=== PATIENT | female | born 1980 | race Asian ===

== ENCOUNTER → 2020-05-25 08:53 | Outpatient (BNV) | payer BC, OTHER, SELFPAY | PROVIDERS: PCP Nurse Practitioner Family; Visit Provider Internal Medicine | DX: D50.9 Iron deficiency anemia, unspecified (principal); N92.0 Excessive and frequent menstruation with regular cycle | CPT/HCPCS: 99213; 99214 ==

== ENCOUNTER 2021-08-13 23:44 | Emergency (ER) | payer OTHER, SELFPAY ==
--- NOTE | ~2021-08-13 | XR_ITS ---
EXAMINATION: XR CHEST CLINICAL INFORMATION: Cough. COMPARISON: None TECHNIQUE: Frontal view of the chest was obtained. FINDINGS: Bilateral patchy infiltrates are seen with mid and lower lung predominance, right greater than left. The heart and mediastinal structures are unremarkable. XR/XR chest 1V IMPRESSION: Bilateral patchy infiltrates, right greater than left most consistent with an infectious/inflammatory process.
[2021-08-14 00:31] VITALS: BP 127/83; PULSE 94; RESP 20; TEMP 38.2; O2SAT 97; BMI 30.9
[2021-08-14 01:08] LABS: COVID-19 Test Positive (Negative)
[2021-08-14] MEDS: Acetaminophen 325 MG TABLET 650 MG PO (07:02)
--- NOTE | 2021-08-14 07:49 | ED.GENADULT ---
HPI - General Adult General Chief complaint: Fever Stated complaint: cough, fever 5 days, severe flu thru telehealth Time Seen by Provider: 08/14/21 06:53 Source: patient Mode of arrival: ambulatory Limitations: no limitations History of Present Illness HPI narrative: This is a very pleasant 41 years old female unvaccinated for covid, presented to the emergency department complaining of fever body aches malaise. Her tested positive for covid Onset (ago): day(s) (5) Radiation: non-radiation Severity: moderate Quality: burning Pain Consistency: constant Relieving factors: none Exacerbating factors: none Associated symptoms: denies other symptoms Related Data Home Medications Medication Instructions Recorded Confirmed ferrous sulfate 324 mg (65 mg 324 mg PO BID 05/25/20 05/25/20 iron) tablet,delayed release folic acid 1 mg tablet 1 mg PO DAILY 05/25/20 05/25/20 levothyroxine 137 mcg tablet 137 mcg PO DAILY 05/25/20 05/25/20 Allergies Allergy/AdvReac Type Severity Reaction Status Date / Time aspirin [ASPIRIN] Allergy Unknown HIVES Verified 05/25/20 09:30 Review of Systems Constitutional: Constitutional: Reports no additional constitutional complaints Cardiovascular: Cardiovascular: Reports no additional cardiovascular complaints Respiratory: Respiratory: Reports chest congestion and Reports cough Gastrointestinal: Gastrointestinal: Reports no additional gastrointestinal complaints PMFSH Past Medical History Medical History Hepatic steatosis Hypothyroidism Infertility Iron deficiency anemia Vitamin D deficiency Family History Family History Father Murder Mother Cardiovascular system problem Social History Social History Alcohol intake: never Smoked in Last 30 Days: No Use of substances other than those prescribed or required for medical reasons: No Advance Directives: No Physical Exam Vital Signs: Vital Signs: Last Vital Signs Temp 98.9 F 08/14/21 08:40 Pulse 80 08/14/21 08:38 Resp 18 08/14/21 08:38 BP 113/71 08/14/21 08:38 Pulse Ox 93 08/14/21 08:40 BMI result Body Mass Index 30.9 Const: Other: She has not toxic-appearing, oxygen saturation is 97% respiration rate is 20, she is not tachypneic General: cooperative Nutritional Appearance: average body habitus HENMT: Head: Yes normal to inspection Face and sinus: Yes normal facial exam Mouth: Normal oral and palatal mucosa present Neck: Neck: Yes normal visual inspection and Yes full ROM Thyroid: Thyroid normal Chest: Chest palpation & inspection: normal inspection of the chest Resp: Effort & Inspection: normal respiratory effort Auscultation: no crackles, no rales and no rhonchi Cardio: Jugular venous distension: no JVD Rate: regular rate Rhythm: regular rhythm GI: Inspection: Yes normal to inspection Palpation (GI): Soft to palpation, not firm, nontender and no guarding Skin: General skin exam: no rashes or lesions noted, elasticity normal and turgor normal Course Reevaluation(s) Reevaluation #1: Re-examined she is afebrile oxygen saturation 99% at this time , her chest x-ray is positive for viral pneumonia, but she is oxygenating well she is not tachypneic she is not in respiratory distress. I realize that she is at risk because not vaccinated, I give her the referral form a for the [facility] monoclonal antibody infusion. Patient has an oxygen saturation device at home, she will monitor the O2 sat, she will return if there O2 sat is below 91%. Patient is very comfortable with the plan of care,all questions answered. Medical Decision Making Lab Data Labs: Lab Results 08/14/21 Range/Units 00:57 COVID-19 ([facility]) Positive A (Negative) COVID-19 Clin Com See Note Imaging Data Chest x-ray: Radiologist's impression: cc: Rito Díaz MD~ EXAMINATION: XR CHEST CLINICAL INFORMATION: Cough. COMPARISON: None TECHNIQUE: Frontal view of the chest was obtained. FINDINGS: Bilateral patchy infiltrates are seen with mid and lower lung predominance, right greater than left. The heart and mediastinal structures are unremarkable. XR/XR chest 1V IMPRESSION: Bilateral patchy infiltrates, right greater than left most consistent with an infectious/inflammatory process. ? Dictated By: KRIS RAMIREZ MD Signed By: <Electronically signed by KRIS RAMIREZ MD in [place]> 08/14/21 0822 Discharge Plan Discharge Clinical Impression: Pneumonia due to COVID-19 virus Patient Disposition: Home, Self-Care Instructions: Pneumonia (ED), COVID-19 (Coronavirus Disease 2019) (ED) Additional Instructions: Return to the emergency room if you worse, if your oxygen is less than 91%, we gave you the referral form for the [facility] Covid-19 Monoclonal Antibody Prescriptions: No Action levothyroxine 137 mcg Tablet 137 mcg PO DAILY RF: 0 folic acid 1 mg Tablet 1 mg PO DAILY RF: 0 ferrous sulfate 324 mg (65 mg iron) Tablet,Delayed Release (Dr/Ec) 324 mg PO BID RF: 0 Referrals: Isa Marsh NP [Primary Care Provider] - 2 days Interventions: ED Discharge Assessment Last Done: 08/14/21 09:55 Discharge Date/Time: 08/14/21 09:55
[2021-08-14 08:38] VITALS: BP 113/71; PULSE 80; RESP 18; O2SAT 96
[2021-08-14 08:40] VITALS: TEMP 37.2; O2SAT 93
== END 2021-08-14 09:55 | disposition home or self-care (01) ==
PROVIDERS: Emergency Provider Emergency Medicine; PCP Nurse Practitioner Family
DX: U07.1 COVID-19 (principal); J12.82 Pneumonia due to coronavirus disease 2019
CPT/HCPCS: 71045; 87635; 99283; 99284

== ENCOUNTER 2021-08-15 17:47 | Inpatient (IN) | payer OTHER, SELFPAY ==
--- NOTE | ~2021-08-15 | CT_ITS ---
EXAMINATION: CTA CHEST PE STUDY CLINICAL INFORMATION: COVID positive, new onset AFib, rule out PE COMPARISON: No pertinent prior studies are available for comparison. TECHNIQUE: Prior to contrast administration, noncontrast localization images were obtained. After the administration of 65 mL of Omnipaque nonionic IV contrast, contiguous thin slice helical images were obtained through the thorax. Reformatted MIP images in the coronal and sagittal planes were obtained at the acquisition workstation. This CT examination was performed using dose optimization techniques as appropriate, variously including the following: *Automated exposure control *Adjustment of mA and/or kV according to patient size (this includes techniques or standardized protocols for targeted exams where dose is matched to indication/reason for exam; i.e. extremities or head) *Use of iterative reconstruction technique DLP: 331 mGy-cm. FINDINGS: The bolus timing on this study was acceptable for visualization of the pulmonary arterial tree. There are no intraluminal pulmonary arterial filling defects present to suggest pulmonary embolism. Patchy groundglass airspace disease bilaterally with a peripheral predominance consistent with viral or atypical infectious etiology. No dense consolidation. No abnormal pulmonary nodules or masses are appreciated. No significant hilar or mediastinal adenopathy. There is no evidence of pleural effusion or pneumothorax. The heart is normal in size. No evidence of ventricular septal bowing or right heart strain. Great vessels are normal. Otherwise the mediastinum is unremarkable. There is no pericardial effusion or pericardial thickening. Limited evaluation of the upper abdominal viscera is unremarkable. CT/CT angio chest PE protocol IMPRESSION: No evidence for pulmonary emboli. Patchy groundglass airspace disease bilaterally consistent with viral or atypical infectious etiology. VTE: Negative
[2021-08-15 18:00] VITALS: BP 105/69; PULSE 106; RESP 20; TEMP 37; O2SAT 95; O2SAT 97; BMI 30.9
--- NOTE | 2021-08-15 18:26 | ECG_ITS ---
Test Reason : general medical Blood Pressure : / mmHG Vent. Rate : 120 BPM Atrial Rate : 000 BPM P-R Int : 000 ms QRS Dur : 076 ms QT Int : 312 ms P-R-T Axes : 000 -13 -14 degrees QTc Int : 440 ms Atrial fibrillation with rapid ventricular response Nonspecific T wave abnormality Abnormal ECG When compared with ECG of 23-FEB-2020 09:42, Atrial fibrillation has replaced Sinus rhythm Vent. rate has increased BY [address] now depressed in Anterior leads Nonspecific T wave abnormality now evident in Anterolateral leads Referred By: Romero Rojas Electronically Signed By:TERRI HOSKINS MD
--- NOTE | 2021-08-15 18:35 | ED_ITS ---
HPI - Arrhythmia/Palpitations General Chief Complaint: Arrhythmia/Palpitations Stated Complaint: ARRYTHMIA (COVID+)/RAPID AFIB Time Seen by Provider: 08/15/21 17:58 Source: patient and EMS Mode of arrival: ambulatory Limitations: no limitations History of Present Illness HPI narrative: 41-year-old female on vaccinated for COVID, COVID-19 positive since yesterday with symptoms for 5-6 days who presents emergency department for evaluation of a near syncopal episode that happened earlier this morning and palpitations prior to coming to the emergency department. The patient has not been vaccinated for COVID-19. She states that her is COVID-19 positive for 14 days and he got hospitalized today at this facility for COVID-19 pneumonia. She states that she has been having symptoms for about 5 days . Her symptoms include fever, chills, cough, shortness of breath, dyspnea on exertion, fatigue, weakness, 2-3 episodes of diarrhea per day. She was seen in the emergency department yesterday and had a positive COVID-19 test and was diagnosed with a COVID-19 pneumonia with no hypoxia . She was dischar [facility]. She states this morning at 7:00 a.m., she was in the bathroom having a diarrheal bowel movement when she had near syncopal episode. She became lightheaded and dizzy. She states that her vision became bar, she became diaphoretic and almost passed out. An ambulance was called and the paramedics and the patient was hypotensive with a blood pressure of 85/60. The patient refused transport at that time. At 5:00 p.m. she felt like her heart was racing and she was experiencing palpitations. She felt lightheaded and dizzy. An ambulance was called and the patient was found to be in new onset atrial fibrillation with a rate between 150 and 170. Patient was given diltiazem IV with improvement of her rate to the 90-120 range. Related Data Home Medications Medication Instructions Recorded Confirmed levothyroxine 125 mcg tablet 1 tab PO DAILY 08/15/21 08/15/21 Allergies Allergy/AdvReac Type Severity Reaction Status Date / Time aspirin [ASPIRIN] Allergy Unknown HIVES Verified 05/25/20 09:30 Review of Systems Review of Systems: Yes all other systems are reviewed and are negative [facility] Past Medical History [facility] Narrative: Social history: The patient is . She denies tobacco use. She occasionally drinks alcohol. She denies drug use. Medical History Hepatic steatosis Hypothyroidism Infertility Iron deficiency anemia Vitamin D deficiency Family History Family History Father Murder Mother Cardiovascular system problem Social History Social History Alcohol intake: never Patient Tobacco Use Status: Never used Tobacco Advance Directives: No Advance Directives Information Provided: No Physical Exam Vital Signs: Vital Signs: Last Vital Signs Temp 98.6 F 08/15/21 18:00 Pulse 94 08/15/21 20:56 Resp 24 H 08/15/21 20:56 BP 137/71 08/15/21 20:56 Pulse Ox 97 08/15/21 20:00 BMI result Body Mass Index 30.9 Const: General: cooperative and no acute distress Orientation/consciousness: oriented to person and oriented to place Limi tations: no limitations HENMT: Head: Yes normal to inspection, Yes normocephalic and Yes atraumatic Ears: external ears normal General nose exam: Normal external nose present Face and sinus: Yes normal facial exam Mouth: Normal oral and palatal mucosa present Throat: Yes posterior oropharynx normal Eyes: General: appearance normal, both eyes and all related structures Pupils: Equal, round and reactive pupils present Neck: Neck: Yes normal visual inspection, Yes no lymphadenopathy, Yes trachea midline and Yes supple Chest: Chest palpation & inspection: normal inspection of the chest and normal palpation of entire chest wall Resp: Effort & Inspection: normal respiratory effort and able to speak in complete sentences Auscultation: rales (Bibasilar), no rhonchi and no wheezes Cardio: Rate: regular rate and tachycardic Rhythm: abnormal rhythm irregularly irregular Heart sounds: S1 normal heart sound present, S2 normal heart sound present and no murmurs GI: Inspection: Yes normal to inspection Palpation (GI): Soft to palpation, nontender and no guarding Auscultation: normal bowel sounds : General: Yes no CVA tenderness Back/Spine/Pelvis: Back: no CVA tenderness Skin: General skin exam: no rashes or lesions noted Neuro: General: oriented to person and oriented to place Cranial nerves: Yes CN's II-XII intact bilaterally and Yes Equal, round and reactive pupils present Cognition (Neuro): normal cognition Motor exam (neuro): 5/5 motor strength present throughout Extrem: General: Yes normal to inspection Psych: Appearance: grossly normal Speech and movement: Normal speech and movement present Affect: normal affect Attitude: cooperative Thought process: Normal thought process present Thought content: Normal thought content present Course Course Course Narrative: 41-year-old female, on vaccinated for COVID-19, COVID-19 positive yesterday with symptoms for approximately 5-6 days who had a near syncopal episode this morning while having a diarrheal stool and had sudden onset of palpitations at 5:00 p.m. and found to be in new onset atrial fibrillation with a rapid ventricular response. Patient did receive diltiazem IV by the paramedics with some control of her rate. Physical examination did reveal that she had rales at the bases on her lung exam consistent with COVID pneumonia and an irregularly irregular heart rate consistent with atrial fibrillation. Laboratory evaluation was ordered . The patient had a chest x- ray yesterday that revealed COVID pneumonia . Given her new onset atrial fibrillation, I will obtain a CT pulmonary angiogram PE protocol. Patient was treated with normal saline IV x1 L , diltiazem 10 mg IV and diltiazem drip at 5 milligrams/hour. 2130: Laboratory evaluation: WBC and platelet count were low at 4200 and 128,000. Patient had an elevated AST and ALT of 127 and 154. Elevated LDH and alk-phos of 394 and 245. Ferritin was elevated for 3. CRP and ESR elevated at 3.36 and 22. Procalcitonin was normal at 0.08. CT pulmonary angiogram revealed no PE, patient does have bilateral ground-glass opacities consistent with COVID-19 pneumonia. Repeat EKG revealed that the patient converted and is now in normal sinus rhythm. I will discuss admission and anticoagulation with the covering hospitalist. 2219: I did discuss the patient's presentation with the covering hospitalist, the patient will be admitted for further management of her new onset atrial fibrillation and COVID-19 pneumonia. Patient's initial high sensitivity troponin was detectable but not elevated at 6.5. I will repeat a troponin at this time. MDM - Arrhythmia/Palpitations Lab Data Result diagrams: 08/15/21 19:50 08/15/21 19:50 Labs: Lab Results 08/15/21 08/15/21 08/15/21 Range/Units 19:21 19:21 19:50 WBC (4.8-10.8) X10*3/uL RBC (4.20-5.50) X10*6/uL Hgb (12.0-16.0) g/dl Hct (37.0-47.0) % MCV (80.0-98.0) fL MCH (27.0-33.0) pg MCHC (31.0-35.0) g/dl RDW (11.0-16.0) % Plt Count (160-400) X10*3/uL MPV (9.4-12.3) fL Immature Gran % (Auto) (0.0-0.4) % Neut % (Auto) (45-73) % Lymph % (Auto) (20-40) % [place] % (Auto) (2-11) % Eos % (Auto) (0-4) % Baso % (Auto) (0-2) % Lymph # (Auto) (1.2-4.9) X10*3/uL [place] # (Auto) (0.1-1.2) X10*3/uL Eos # (Auto) (0.0-0.4) X10*3/uL Baso # (Auto) (0.0-0.2) X10*3/uL Abs Immat Gran (auto) (0.00-0.03) X10*3/uL Absolute Neuts (auto) (2.0-8.3) x10*3/uL Absolute Nucleated RBC (0.0-0.012) X10*3/uL Nucleated RBC % (auto) (0.0-0.2) /100WBC Smear Tech's Comments ESR (0-20) MM/HR PT (9.9-13.0) SEC INR (0.9-1.1) APTT (24.1-38.0) SEC D-Dimer High Sensitivty NG/ML Sodium 141 (135-145) mmol/L Potassium 3.5 (3.3-5.1) mmol/L Chloride 107 (96-108) mmol/L Carbon Dioxide 26 (22-29) mmol/L Anion Gap 12 (12-20) BUN 2 L (9-16) mg/dL Creatinine 0.67 (0.5-1.4) mg/dL Estim Creat Clear Calc 121.6 Estimated GFR > 60 Random Glucose 112 (60-115) mg/dL Lactic Acid (0.5-2.0) mmol/L Calcium 8.1 L (8.4-10.2) mg/dL Ferritin 406 H (10-250) ng/mL Total Bilirubin 0.4 (0.0-1.0) mg/dL AST 127 H (5-31) U/L ALT 154 H (0-31) U/L Alkaline Phosphatase 245 H D (39-117) U/L Lactate Dehydrogenase 394 H (122-220) U/L Troponin I High Sens (<3.5-17.0) ng/L C-Reactive Protein 3.36 H (< or = 0.50) mg/dL Total Protein 7.0 (6.5-8.0) g/dL Albumin 3.5 (3.5-5.0) g/dL Lipase 25 (8-78) U/L Procalcitonin ng/mL TSH (0.32-4.0) uIU/mL Urine Color YELLOW Urine Appearance CLEAR Urine pH 7.0 (5.0-8.0) Ur Specific [place] 1.010 (1.005-1.025) Urine Protein NEG (NEG-TRACE) MG/DL Urine Glucose (UA) NEG (NEG) MG/DL Urine Ketones NEG (NEG) MG/DL Urine Blood NEG (NEG) Urine Nitrite NEG (NEG) Ur Leukocyte Esterase NEG (NEG) Urine Opiates Screen Not Detected (Not Detect) Urine Fentanyl Screen Not Detected (Not Detect) Ur Barbiturates Screen Not Detected (Not Detect) Ur Phencyclidine Scrn Not Detected (Not Detect) Ur Amphetamines Screen Not Detected (Not Detect) U Benzodiazepines Scrn Not Detected (Not Detect) Urine Cocaine Screen Not Detected (Not Detect) U Marijuana (THC) Screen Not Detected (Not Detect) 08/15/21 08/15/21 08/15/21 Range/Units 19:50 19:50 19:50 WBC 4.2 L (4.8-10.8) X10*3/uL RBC 4.75 (4.20-5.50) X10*6/uL Hgb 14.1 (12.0-16.0) g/dl Hct 41.9 (37.0-47.0) % MCV 88.2 (80.0-98.0) fL MCH 29.7 (27.0-33.0) pg MCHC 33.7 (31.0-35.0) g/dl RDW 12.7 (11.0-16.0) % Plt Count 128 L (160-400) X10*3/uL MPV 10.7 (9.4-12.3) fL Immature Gran % (Auto) 0.2 (0.0-0.4) % Neut % (Auto) 74.1 H (45-73) % Lymph % (Auto) 19.6 L (20-40) % [place] % (Auto) 6.1 (2-11) % Eos % (Auto) 0.0 (0-4) % Baso % (Auto) 0.0 (0-2) % Lymph # (Auto) 0.8 L (1.2-4.9) X10*3/uL [place] # (Auto) 0.3 (0.1-1.2) X10*3/uL Eos # (Auto) 0.0 (0.0-0.4) X10*3/uL Baso # (Auto) 0.0 (0.0-0.2) X10*3/uL Abs Immat Gran (auto) 0.01 (0.00-0.03) X10*3/uL Absolute Neuts (auto) 3.1 (2.0-8.3) x10*3/uL Absolute Nucleated RBC 0.000 (0.0-0.012) X10*3/uL Nucleated RBC % (auto) 0.0 (0.0-0.2) /100WBC Smear Tech's Comments VERIFIED ESR 22 H (0-20) MM/HR PT (9.9-13.0) SEC INR (0.9-1.1) APTT (24.1-38.0) SEC D-Dimer High Sensitivty NG/ML Sodium (135-145) mmol/L Potassium (3.3-5.1) mmol/L Chloride (96-108) mmol/L Carbon Dioxide (22-29) mmol/L Anion Gap (12-20) BUN (9-16) mg/dL Creatinine (0.5-1.4) mg/dL Estim Creat Clear Calc Estimated GFR Random Glucose (60-115) mg/dL Lactic Acid (0.5-2.0) mmol/L Calcium (8.4-10.2) mg/dL Ferritin (10-250) ng/mL Total Bilirubin (0.0-1.0) mg/dL AST (5-31) U/L ALT (0-31) U/L Alkaline Phosphatase (39-117) U/L Lactate Dehydrogenase (122-220) U/L Troponin I High Sens (<3.5-17.0) ng/L C-Reactive Protein (< or = 0.50) mg/dL Total Protein (6.5-8.0) g/dL Albumin (3.5-5.0) g/dL Lipase (8-78) U/L Procalcitonin 0.08 ng/mL TSH (0.32-4.0) uIU/mL Urine Color Urine Appearance Urine pH (5.0-8.0) Ur Specific [place] (1.005-1.025) Urine Protein (NEG-TRACE) MG/DL Urine Glucose (UA) (NEG) MG/DL Urine Ketones (NEG) MG/DL Urine Blood (NEG) Urine Nitrite (NEG) Ur Leukocyte Esterase (NEG) Urine Opiates Screen (Not Detect) Urine Fentanyl Screen (Not Detect) Ur Barbiturates Screen (Not Detect) Ur Phencyclidine Scrn (Not Detect) Ur Amphetamines Screen (Not Detect) U Benzodiazepines Scrn (Not Detect) Urine Cocaine Screen (Not Detect) U Marijuana (THC) Screen (Not Detect) 08/15/21 08/15/21 08/15/21 Range/Units 19:50 19:50 19:50 WBC (4.8-10.8) X10*3/uL RBC (4.20-5.50) X10*6/uL Hgb (12.0-16.0) g/dl Hct (37.0-47.0) % MCV (80.0-98.0) fL MCH (27.0-33.0) pg MCHC (31.0-35.0) g/dl RDW (11.0-16.0) % Plt Count (160-400) X10*3/uL MPV (9.4-12.3) fL Immature Gran % (Auto) (0.0-0.4) % Neut % (Auto) (45-73) % Lymph % (Auto) (20-40) % [place] % (Auto) (2-11) % Eos % (Auto) (0-4) % Baso % (Auto) (0-2) % Lymph # (Auto) (1.2-4.9) X10*3/uL [place] # (Auto) (0.1-1.2) X10*3/uL Eos # (Auto) (0.0-0.4) X10*3/uL Baso # (Auto) (0.0-0.2) X10*3/uL Abs Immat Gran (auto) (0.00-0.03) X10*3/uL Absolute Neuts (auto) (2.0-8.3) x10*3/uL Absolute Nucleated RBC (0.0-0.012) X10*3/uL Nucleated RBC % (auto) (0.0-0.2) /100WBC Smear Tech's Comments ESR (0-20) MM/HR PT 11.9 (9.9-13.0) SEC INR 1.0 (0.9-1.1) APTT 28.5 (24.1-38.0) SEC D-Dimer High Sensitivty 182 NG/ML Sodium (135-145) mmol/L Potassium (3.3-5.1) mmol/L Chloride (96-108) mmol/L Carbon Dioxide (22-29) mmol/L Anion Gap (12-20) BUN (9-16) mg/dL Creatinine (0.5-1.4) mg/dL Estim Creat Clear Calc Estimated GFR Random Glucose (60-115) mg/dL Lactic Acid 1.5 (0.5-2.0) mmol/L Calcium (8.4-10.2) mg/dL Ferritin (10-250) ng/mL Total Bilirubin (0.0-1.0) mg/dL AST (5-31) U/L ALT (0-31) U/L Alkaline Phosphatase (39-117) U/L Lactate Dehydrogenase (122-220) U/L Troponin I High Sens 6.5 (<3.5-17.0) ng/L C-Reactive Protein (< or = 0.50) mg/dL Total Protein (6.5-8.0) g/dL Albumin (3.5-5.0) g/dL Lipase (8-78) U/L Procalcitonin ng/mL TSH (0.32-4.0) uIU/mL Urine Color Urine Appearance Urine pH (5.0-8.0) Ur Specific [place] (1.005-1.025) Urine Protein (NEG-TRACE) MG/DL Urine Glucose (UA) (NEG) MG/DL Urine Ketones (NEG) MG/DL Urine Blood (NEG) Urine Nitrite (NEG) Ur Leukocyte Esterase (NEG) Urine Opiates Screen (Not Detect) Urine Fentanyl Screen (Not Detect) Ur Barbiturates Screen (Not Detect) Ur Phencyclidine Scrn (Not Detect) Ur Amphetamines Screen (Not Detect) U Benzodiazepines Scrn (Not Detect) Urine Cocaine Screen (Not Detect) U Marijuana (THC) Screen (Not Detect) 08/15/21 Range/Units 19:50 WBC (4.8-10.8) X10*3/uL RBC (4.20-5.50) X10*6/uL Hgb (12.0-16.0) g/dl Hct (37.0-47.0) % MCV (80.0-98.0) fL MCH (27.0-33.0) pg MCHC (31.0-35.0) g/dl RDW (11.0-16.0) % Plt Count (160-400) X10*3/uL MPV (9.4-12.3) fL Immature Gran % (Auto) (0.0-0.4) % Neut % (Auto) (45-73) % Lymph % (Auto) (20-40) % [place] % (Auto) (2-11) % Eos % (Auto) (0-4) % Baso % (Auto) (0-2) % Lymph # (Auto) (1.2-4.9) X10*3/uL [place] # (Auto) (0.1-1.2) X10*3/uL Eos # (Auto) (0.0-0.4) X10*3/uL Baso # (Auto) (0.0-0.2) X10*3/uL Abs Immat Gran (auto) (0.00-0.03) X10*3/uL Absolute Neuts (auto) (2.0-8.3) x10*3/uL Absolute Nucleated RBC (0.0-0.012) X10*3/uL Nucleated RBC % (auto) (0.0-0.2) /100WBC Smear Tech's Comments ESR (0-20) MM/HR PT (9.9-13.0) SEC INR (0.9-1.1) APTT (24.1-38.0) SEC D-Dimer High Sensitivty NG/ML Sodium (135-145) mmol/L Potassium (3.3-5.1) mmol/L Chloride (96-108) mmol/L Carbon Dioxide (22-29) mmol/L Anion Gap (12-20) BUN (9-16) mg/dL Creatinine (0.5-1.4) mg/dL Estim Creat Clear Calc Estimated GFR Random Glucose (60-115) mg/dL Lactic Acid (0.5-2.0) mmol/L Calcium (8.4-10.2) mg/dL Ferritin (10-250) ng/mL Total Bilirubin (0.0-1.0) mg/dL AST (5-31) U/L ALT (0-31) U/L Alkaline Phosphatase (39-117) U/L Lactate Dehydrogenase (122-220) U/L Troponin I High Sens (<3.5-17.0) ng/L C-Reactive Protein (< or = 0.50) mg/dL Total Protein (6.5-8.0) g/dL Albumin (3.5-5.0) g/dL Lipase (8-78) U/L Procalcitonin ng/mL TSH 1.88 (0.32-4.0) uIU/mL Urine Color Urine Appearance Urine pH (5.0-8.0) Ur Specific [place] (1.005-1.025) Urine Protein (NEG-TRACE) MG/DL Urine Glucose (UA) (NEG) MG/DL Urine Ketones (NEG) MG/DL Urine Blood (NEG) Urine Nitrite (NEG) Ur Leukocyte Esterase (NEG) Urine Opiates Screen (Not Detect) Urine Fentanyl Screen (Not Detect) Ur Barbiturates Screen (Not Detect) Ur Phencyclidine Scrn (Not Detect) Ur Amphetamines Screen (Not Detect) U Benzodiazepines Scrn (Not Detect) Urine Cocaine Screen (Not Detect) U Marijuana (THC) Screen (Not Detect) ECG Data Attestation: I personally reviewed and interpreted this ECG as follows: Interpretation: EKG 1.: 1903: Atrial fibrillation with a rapid ventricular response of 120 beats per minute, normal QRS duration QTC duration, no ST segment elevation, no ST segment depression, no PVCs. EKG 2: 2132: Normal sinus rhythm rate of 88, normal OR interval QRS duration QTC interval, no ST segment elevation, no ST segment depression, no PACs, no PVCs, no significant T-wave abnormalities. Critical Care Time Critical Care Time Total Critical Care Time: 35 Attestation: Critical Care: The patient was critically ill with a high probability of imminent or life threatening deterioration. I spent greater than 30 minutes of discontinuous time evaluating the patient,delivering critical care at the bedside, discussing and evaluating pertinent data with consultants. Critical care time does not include time spent performing separately billable procedures or teaching. Total time spent performing critical care was 38 minutes. Discharge Plan Discharge Patient Disposition: Admitted As Inpatient Prescriptions: No Action levothyroxine 125 mcg tablet 1 tab PO DAILY RF: 0
[2021-08-15] MEDS: dilTIAZem HCL 50 MG/10 ML VIAL 10 MG IVPUSH (19:13)
[2021-08-15] MEDS: 0.9 % Sodium Chloride 1,000 ML 999 ML IV (19:13)
[2021-08-15] MEDS: dilTIAZem HCL 125 MG in 0.9 % Sodium Chloride 100 ML IVCONT (19:42)
[2021-08-15] MEDS: HYDROcodone/Homat 5/1.5/5 ML 5 ML SYRUP PO ×2 (19:44→22:58)
[2021-08-15 20:00] VITALS: BP 137/74; PULSE 96; RESP 24; O2SAT 97
[2021-08-15 20:02] LABS: Imm Gran Abs Auto 0.01 X10*3/uL (0.00-0.03); Imm Gran Pct Auto 0.2 % (0.0-0.4); MANUAL DIFF FLAG SCAN; PLT CLUMP 1; Red Cell Distribution Width 12.7 % (11.0-16.0); SCAN SMEAR FLAG 1
[2021-08-15 20:04] LABS: Hematocrit 41.9 % (37.0-47.0); Hemoglobin 14.1 g/dl (12.0-16.0); Lymphocytes Absolute Auto 0.8 X10*3/uL (1.2-4.9); Lymphocytes Percent Auto 19.6 % (20-40); Mean Corpuscular HGB Conc 33.7 g/dl (31.0-35.0); Mean Corpuscular Hemoglobin 29.7 pg (27.0-33.0); Mean Corpuscular Volume 88.2 fL (80.0-98.0); Mean Platelet Volume 10.7 fL (9.4-12.3); Monocytes Absolute Auto 0.3 X10*3/uL (0.1-1.2); Monocytes Percent Auto 6.1 % (2-11); Neutrophils Absolute Auto 3.1 x10*3/uL (2.0-8.3); Neutrophils Percent Auto 74.1 % (45-73); Red Blood Count 4.75 X10*6/uL (4.20-5.50)
[2021-08-15 20:08] LABS: Prothrombin Time 11.9 SEC (9.9-13.0)
[2021-08-15 20:10] LABS: D Dimer High Sensitivity 182 NG/ML
[2021-08-15 20:11] LABS: Partial Thromboplastin Time 28.5 SEC (24.1-38.0)
[2021-08-15 20:12] LABS: Lactic Acid 1.5 mmol/L (0.5-2.0)
[2021-08-15 20:13] LABS: Appearance Urine CLEAR; Color Urine YELLOW; Glucose Urine UA NEG (NEG); Leukocyte Esterase Urine NEG (NEG); Nitrite Urine NEG (NEG); Urine Blood NEG (NEG); Urine Ketones NEG (NEG); Urine Protein NEG (NEG-TRACE)
[2021-08-15 20:20] LABS: Alanine Aminotransferase 154 U/L (0-31); Albumin Level 3.5 g/dL (3.5-5.0); Alkaline Phosphatase 245 U/L (39-117); Anion Gap 12 (12-20); Aspartate Amino Transferase 127 U/L (5-31); Bilirubin Total 0.4 mg/dL (0.0-1.0); Blood Urea Nitrogen 2 mg/dL (9-16); C Reactive Protein 3.36 mg/dL (< or = 0.50); Calcium 8.1 mg/dL (8.4-10.2); Carbon Dioxide 26 mmol/L (22-29); Chloride 107 mmol/L (96-108); Creatinine Clr Calc Pharmacy 121.6; Estimated Glomerular Filt Rate > 60; Glucose Random 112 mg/dL (60-115); Lactate Dehydrogenase 394 U/L (122-220); Lipase 25 U/L (8-78); Potassium 3.5 mmol/L (3.3-5.1); Sodium 141 mmol/L (135-145)
[2021-08-15 20:26] LABS: Amphetamine Screen Urine Not Detected (Not Detect); Barbiturates, Urine Not Detected (Not Detect); Benzodiazepines Screen Urine Not Detected (Not Detect); Cannabinoid Screen Urine Not Detected (Not Detect); Cocaine Screen Urine Not Detected (Not Detect); Fentanyl, urine Not Detected (Not Detect); Opiate Screen Urine Not Detected (Not Detect); Phencyclidine Screen Urine Not Detected (Not Detect)
[2021-08-15 20:34] LABS: Procalcitonin 0.08 ng/mL
[2021-08-15 20:35] LABS: TSH reflex Free T4 1.88 uIU/mL (0.32-4.0)
[2021-08-15 20:37] LABS: Ferritin 406 ng/mL (10-250)
[2021-08-15 20:42] LABS: White Blood Count 4.2 X10*3/uL (4.8-10.8)
[2021-08-15 20:44] LABS: Platelet Count 128 X10*3/uL (160-400); SLIDE REVIEW VERIFIED
[2021-08-15 20:49] LABS: Troponin-I High Sensitivity 6.5 ng/L (<3.5-17.0)
[2021-08-15] MEDS: iohexoL 350 MG/ML 100 ML INFUS..BTL 65 ML IV (20:50)
[2021-08-15 20:56] VITALS: BP 137/71; PULSE 94; RESP 24
--- NOTE | 2021-08-15 21:04 | PHA.MEDREC ---
Pharmacy Consult ? Medication Reconciliation Pharmacy has completed the medication reconciliation.
[2021-08-15 21:07] LABS: Erythrocyte Sedimentation Rate 22 MM/HR (0-20)
--- NOTE | 2021-08-15 21:33 | ECG_ITS ---
Test Reason : ARRYTHMIA Blood Pressure : / mmHG Vent. Rate : 088 BPM Atrial Rate : 088 BPM P-R Int : 162 ms QRS Dur : 076 ms QT Int : 368 ms P-R-T Axes : 004 -14 005 degrees QTc Int : 445 ms Normal sinus rhythm Normal ECG When compared with ECG of 15-AUG-2021 19:03, Sinus rhythm has replaced Atrial fibrillation Referred By: Scott Gamboa Electronically Signed By:TERRI HOSKINS MD
--- NOTE | 2021-08-15 22:23 | P.HPHOSP_ITS ---
History of Present Illness Date of Service: 08/15/21 Chief Complaint: Near syncope 41-year-old female with a past medical history of hypothyroidism presented to the hospital with a chief complaint of near syncope. Patient reported that over the past few days she has been having generalized weakness, body aches, not feeling well, cough, presented to the hospital for evaluation on 08/14/2021; noted to have COVID-19 positive but saturating well on room air; subsequently sent home; patient reported that after she left the hospital she still continued to feel weak in general; and today she felt lightheaded and dizzy; followed by she almost had a fainting attack but did not lose consciousness; did not have any falls; EMS was called and EMS noted her blood pressure noted to be 85/60; and recommended to come to the ER; but patient refused; in the evening patient reported that she had irregular heartbeat and palpitations; call the EMS and noted to have heart rate in 160s-AFib; given diltiazem and brought her to the hospital for further evaluation. Denied any chest pain. Denied any numbness tingling or focal weakness Denies any urinary symptoms. Patient reports that she has been continued to have diarrhea. Patient mentions that her was also admitted to the hospital here for COVID infection. Review of all other systems is negative except mentioned above ER course: Per ER team patient on presentation noted to be in AFib with rapid ventricular response-> with heart rate up to 160s; given diltiazem IV push followed by. Patient was placed on diltiazem drip; 20 minutes later patient converted to normal sinus rhythm; diltiazem drip postop. Patient received IV fluids; patient's blood pressure normalized; CT chest showed no evidence of pulmonary embolism but noted COVID-19 pneumonia. Patient is saturating on room air and speaking in full sentences. Admitted to the hospital for further management. [facility] Medical History Hepatic steatosis Hypothyroidism Infertility Iron deficiency anemia Vitamin D deficiency Family History Father Murder Mother Cardiovascular system problem Pertinent family history: As mentioned above Social History Alcohol intake: never Patient Tobacco Use Status: Never used Tobacco Advance Directives: No Advance Directives Information Provided: No Meds Allergies Allergy/AdvReac Type Severity Reaction Status Date / Time aspirin [ASPIRIN] Allergy Unknown HIVES Verified 05/25/20 09:30 Active Medications: Current Medications Acetaminophen (Acetaminophen 325 Mg Tablet) 650 mg PO Q6H PRN PRN Reason: Pain, Mild (Pain Scale 1-3) Enoxaparin Sodium (Enoxaparin Sodium 40 Mg/0.4 Ml Syringe) 40 mg SUBCUT Q24H AKROLINE Diltiazem HCl 125 mg/ Sodium (Chloride) 125 mls @ 0 mls/hr IVCONT .Q0M [facility]; Protocol Last Admin: 08/15/21 19:42 Dose: 5 mg/hr, 5 mls/hr Documented by: Pharmacy Consult (Consult Rx Perform Med Rec) 1 each MISCELLANE ONCE PRN PRN Reason: Consult order Senna (Sennosides 8.6 Mg Tablet) 17.2 mg PO BEDTIME PRN PRN Reason: Constipation Sodium Chloride (0.9 % Sodium Chloride Flush 3 Ml Syringe) 3 ml IVFLUSH QSHIFT [facility] Home Medications Medication Instructions Recorded Confirmed Last Taken Type levothyroxine 125 mcg tablet 1 tab PO DAILY 08/15/21 08/15/21 08/15/21 History Physical Exam Vital Signs and Narrative: Vital Signs: Last Vital Signs Temp 98.6 F 08/15/21 18:00 Pulse 94 08/15/21 20:56 Resp 24 H 08/15/21 20:56 BP 137/71 08/15/21 20:56 Pulse Ox 97 08/15/21 20:00 BMI result Body Mass Index 30.9 Gen: Appears be in no acute distress. Speaks in full sentences. Saturating well on room air HEENT: NCAT, Moist mucosa. Pulmonary: Coarse breath sounds CVS: Normal S1-S2 Abdomen: BS+, Soft, Nontender Extremities: Warm well perfused Neuro: Alert and awake. Results Labs CBC and Chem 7: 08/15/21 19:50 08/15/21 19:50 Labs: Laboratory Results - last 24 hr 08/15/21 08/15/21 08/15/21 19:21 19:21 19:50 MCV MCH MCHC RDW Plt Count MPV Immature Gran % (Auto) Neut % (Auto) Lymph % (Auto) [place] % (Auto) Eos % (Auto) Baso % (Auto) Lymph # (Auto) [place] # (Auto) Eos # (Auto) Baso # (Auto) Abs Immat Gran (auto) Absolute Neuts (auto) Absolute Nucleated RBC Nucleated RBC % (auto) Smear Tech's Comments ESR PT INR APTT D-Dimer High Sensitivty Anion Gap 12 Estim Creat Clear Calc 121.6 Estimated GFR > 60 Random Glucose 112 Lactic Acid Calcium 8.1 L Ferritin 406 H Total Bilirubin 0.4 AST 127 H ALT 154 H Alkaline Phosphatase 245 H D Lactate Dehydrogenase 394 H Troponin I High Sens C-Reactive Protein 3.36 H Total Protein 7.0 Albumin 3.5 Lipase 25 Procalcitonin TSH Urine Color YELLOW Urine Appearance CLEAR Urine pH 7.0 Ur Specific [place] 1.010 Urine Protein NEG Urine Glucose (UA) NEG Urine Ketones NEG Urine Blood NEG Urine Nitrite NEG Ur Leukocyte Esterase NEG Urine Opiates Screen Not Detected Urine Fentanyl Screen Not Detected Ur Barbiturates Screen Not Detected Ur Phencyclidine Scrn Not Detected Ur Amphetamines Screen Not Detected U Benzodiazepines Scrn Not Detected Urine Cocaine Screen Not Detected U Marijuana (THC) Screen Not Detected 08/15/21 08/15/21 08/15/21 19:50 19:50 19:50 MCV 88.2 MCH 29.7 MCHC 33.7 RDW 12.7 Plt Count 128 L MPV 10.7 Immature Gran % (Auto) 0.2 Neut % (Auto) 74.1 H Lymph % (Auto) 19.6 L [place] % (Auto) 6.1 Eos % (Auto) 0.0 Baso % (Auto) 0.0 Lymph # (Auto) 0.8 L [place] # (Auto) 0.3 Eos # (Auto) 0.0 Baso # (Auto) 0.0 Abs Immat Gran (auto) 0.01 Absolute Neuts (auto) 3.1 Absolute Nucleated RBC 0.000 Nucleated RBC % (auto) 0.0 Smear Tech's Comments VERIFIED ESR 22 H PT INR APTT D-Dimer High Sensitivty Anion Gap Estim Creat Clear Calc Estimated GFR Random Glucose Lactic Acid Calcium Ferritin Total Bilirubin AST ALT Alkaline Phosphatase Lactate Dehydrogenase Troponin I High Sens C-Reactive Protein Total Protein Albumin Lipase Procalcitonin 0.08 TSH Urine Color Urine Appearance Urine pH Ur Specific [place] Urine Protein Urine Glucose (UA) Urine Ketones Urine Blood Urine Nitrite Ur Leukocyte Esterase Urine Opiates Screen Urine Fentanyl Screen Ur Barbiturates Screen Ur Phencyclidine Scrn Ur Amphetamines Screen U Benzodiazepines Scrn Urine Cocaine Screen U Marijuana (THC) Screen 08/15/21 08/15/21 08/15/21 19:50 19:50 19:50 MCV MCH MCHC RDW Plt Count MPV Immature Gran % (Auto) Neut % (Auto) Lymph % (Auto) [place] % (Auto) Eos % (Auto) Baso % (Auto) Lymph # (Auto) [place] # (Auto) Eos # (Auto) Baso # (Auto) Abs Immat Gran (auto) Absolute Neuts (auto) Absolute Nucleated RBC Nucleated RBC % (auto) Smear Tech's Comments ESR PT 11.9 INR 1.0 APTT 28.5 D-Dimer High Sensitivty 182 Anion Gap Estim Creat Clear Calc Estimated GFR Random Glucose Lactic Acid 1.5 Calcium Ferritin Total Bilirubin AST ALT Alkaline Phosphatase Lactate Dehydrogenase Troponin I High Sens 6.5 C-Reactive Protein Total Protein Albumin Lipase Procalcitonin TSH Urine Color Urine Appearance Urine pH Ur Specific [place] Urine Protein Urine Glucose (UA) Urine Ketones Urine Blood Urine Nitrite Ur Leukocyte Esterase Urine Opiates Screen Urine Fentanyl Screen Ur Barbiturates Screen Ur Phencyclidine Scrn Ur Amphetamines Screen U Benzodiazepines Scrn Urine Cocaine Screen U Marijuana (THC) Screen 08/15/21 19:50 MCV MCH MCHC RDW Plt Count MPV Immature Gran % (Auto) Neut % (Auto) Lymph % (Auto) [place] % (Auto) Eos % (Auto) Baso % (Auto) Lymph # (Auto) [place] # (Auto) Eos # (Auto) Baso # (Auto) Abs Immat Gran (auto) Absolute Neuts (auto) Absolute Nucleated RBC Nucleated RBC % (auto) Smear Tech's Comments ESR PT INR APTT D-Dimer High Sensitivty Anion Gap Estim Creat Clear Calc Estimated GFR Random Glucose Lactic Acid Calcium Ferritin Total Bilirubin AST ALT Alkaline Phosphatase Lactate Dehydrogenase Troponin I High Sens C-Reactive Protein Total Protein Albumin Lipase Procalcitonin TSH 1.88 Urine Color Urine Appearance Urine pH Ur Specific [place] Urine Protein Urine Glucose (UA) Urine Ketones Urine Blood Urine Nitrite Ur Leukocyte Esterase Urine Opiates Screen Urine Fentanyl Screen Ur Barbiturates Screen Ur Phencyclidine Scrn Ur Amphetamines Screen U Benzodiazepines Scrn Urine Cocaine Screen U Marijuana (THC) Screen Imaging Radiologist's Impressions: Impressions Chest CTA 08/15/21 20:57 IMPRESSION: No evidence for pulmonary emboli. Patchy groundglass airspace disease bilaterally consistent with viral or atypical infectious etiology. VTE: Negative Assessment and Plan (1) New onset a-fib: Status: Acute (2) Pneumonia due to 2019 novel coronavirus: Status: Acute (3) Near syncope: Status: Acute 41-year-old female with a past medical history of hypothyroidism, hepatic presented to the hospital with a chief complaint of generalized weakness/lightheadedness/dizziness/near-syncope/diarrhea/palpitations. Noted to have COVID-19 pneumonia/new onset AFib with RVR. Admitted for further management. COVID-19 pneumonia: Patient currently saturating well. Speaks in full sentences. Continue empiric ceftriaxone, azithromycin, Decadron. Id consult for further recommendations. Patient tested COVID 19 positive on 08/14/2021 Patient reported that she was not vaccinated prior. Near syncope: Likely in the setting of dehydration secondary to diarrhea. Patient blood pressure was initially on the lower side earlier today. Currently improved after IV fluids in the ER. Will monitor on telemetry. New onset AFib: Likely pulmonary driven. Patient was briefly on diltiazem drip. Converted to sinus rhythm. TSH within normal limits. Echocardiogram. Cardiology consult. Diarrhea: Likely secondary to COVID-19 infection. Will continue to monitor. Transaminitis: Likely in the setting of COVID-19 infection. Will also obtain acute hepatitis panel. History of hypothyroidism: Continue home levothyroxine. DVT prophylaxis: Lovenox Code status: Full code Quality Stroke Does the patient have a stroke diagnosis?: No VTE Prior VTE?: No VTE Risk Level:: Medical - moderate - high VTE Device Contraindication: Treatment Not Indicated VTE Drug Contraindication: N/A - Med Ordered
--- NOTE | 2021-08-15 22:27 | PC.NURSE ---
PATIENTS HEART RATE IS 86, CARDIZEM DRIP HELD. REPEAT EKG IS NORMAL SINUS AT 84. ASKING PROVIDER FOR ORAL MEDICATIONS FOR HEART RATE WHILE INFORMING HIM THE DRIP IS BEING HELD PER PROTOCOL FOR A HEART RATE UNDER 90. PROVIDER ACKNOWLEDGING PATIENT'S REPEAT EKG AND THAT THE DRIP WAS STOPPED. NO NEW ORDERS AT THIS TIME. PROVIDER STATING THEY WILL PLACE A CALL OUT TO DISCUSS PATIENT WITH CARDIOLOGY AND HOSPITALIST. PATIENT RESTING COMFORTABLY ON STRETCHER. DOES HAVE A COUGH WHICH SHE STATES BEING SYMPTOMATIC OF COVID FOR ABOUT 1 WEEK NOW. PROVIDER IS AWARE
[2021-08-15 22:36] VITALS: BP 123/67; PULSE 86; RESP 18; TEMP 38.7; O2SAT 97
[2021-08-15] MEDS: Enoxaparin Sodium 40 MG/0.4 ML SYRINGE SUBCUT (22:57)
[2021-08-15] MEDS: cefTRIAXone sodium 1 GM in 0.9 % Sodium Chloride 50 ML IV (22:59)
[2021-08-15 23:13] LABS: Troponin-I High Sensitivity 9.6 ng/L (<3.5-17.0)
--- NOTE | 2021-08-15 23:26 | MHC.CM.PN ---
CM met with admitted patient with bed assignment pending. A&Ox3. No IMM necessary. No HCP. Education provided, pt declined. PCP Isa Marsh. Positive Covid 08/14/2021. Pt is not vaccinated. Pt was diagnosed yesterday with Covid and admitted to [facility]. 13 y/o son Adilson is negative, asymptomatic. Staying with neighbor. Pt tells CM she loves her , but he told her he would divorce her if she got the vaccinations. Pt is considering the vaccinations now. Pt is undergoing fertility treatments. Has appointment for antibody tx on Thursday at 5pm. Pt hopes to be d/c by then. CM encouraged pt to consider vaccinations when able after recovery from Covid, especially if she is trying to get . Pt is employed and independent. D/C plan is home without services. Pt will try to arrange transportation, but may need a ride home. CM to follow for d/c needs.
[2021-08-15] MEDS: Azithromycin 500 MG in 0.9 % Sodium Chloride 250 ML 125 MG IV (23:44)
[2021-08-16 06:17] VITALS: BP 102/59; PULSE 76; RESP 22; TEMP 37.2; O2SAT 96
[2021-08-16] MEDS: Acetaminophen 325 MG TABLET 650 MG PO (06:44)
[2021-08-16] MEDS: Levothyroxine Sodium 125 MCG TABLET PO (06:44)
[2021-08-16 06:52] LABS: Hemoglobin 13.5 g/dl (12.0-16.0); Imm Gran Abs Auto 0.02 X10*3/uL (0.00-0.03); Imm Gran Pct Auto 0.6 % (0.0-0.4); Lymphocytes Absolute Auto 1.2 X10*3/uL (1.2-4.9); Lymphocytes Percent Auto 34.5 % (20-40); MANUAL DIFF FLAG SCAN; Mean Corpuscular HGB Conc 33.8 g/dl (31.0-35.0); Mean Corpuscular Hemoglobin 29.7 pg (27.0-33.0); Mean Corpuscular Volume 87.9 fL (80.0-98.0); Mean Platelet Volume 10.2 fL (9.4-12.3); Monocytes Absolute Auto 0.3 X10*3/uL (0.1-1.2); Monocytes Percent Auto 9.6 % (2-11); Neutrophils Absolute Auto 1.9 x10*3/uL (2.0-8.3); Neutrophils Percent Auto 55.3 % (45-73); Platelet Count 137 X10*3/uL (160-400); Red Blood Count 4.55 X10*6/uL (4.20-5.50); Red Cell Distribution Width 12.8 % (11.0-16.0); SCAN SMEAR FLAG 1; White Blood Count 3.5 X10*3/uL (4.8-10.8)
[2021-08-16 07:10] LABS: SLIDE REVIEW VERIFIED
[2021-08-16 07:13] LABS: Anion Gap 10 (12-20); Blood Urea Nitrogen 2 mg/dL (9-16); Calcium 7.7 mg/dL (8.4-10.2); Carbon Dioxide 25 mmol/L (22-29); Chloride 106 mmol/L (96-108); Estimated Glomerular Filt Rate > 60; Glucose Random 93 mg/dL (60-115); Potassium 3.2 mmol/L (3.3-5.1); Sodium 138 mmol/L (135-145)
[2021-08-16 07:20] VITALS: BP 96/63; PULSE 68; RESP 25; TEMP 37; O2SAT 95
[2021-08-16] MEDS: 0.9 % Sodium Chloride Flush 3 ML SYRINGE IVFLUSH (08:10)
--- NOTE | 2021-08-16 11:34 | P.CONCA_ITS ---
History of Present Illness History of Present Illness Date of Service: 08/16/21 Requesting physician: Scott [facility] Consult reason: atrial fibrillation and hypotension Chief complaint: Near syncope and atrial fibrillation Narrative: I was requested to see Betsy in cardiology consultation today because of new onset atrial fibrillation. She is a pleasant 41-year-old woman who is on vaccinated presented to the hospital with weakness and has been diagnosed with COVID in the past. Her is also positive for COVID. She was seen here in the past and had pulmonary infiltrates and because she was not hypoxic was sent home. Then she came to the hospital because she started having palpitation irregular heartbeat and had lightheadedness spell earlier in the day. EMS was called and she was noted to be in atrial fibrillation with rapid ventricular response and low blood pressure. She was given IV fluids and IV Cardizem. Subsequently was started on IV Cardizem drip in the emergency room and subsequently converted to sinus rhythm. Since then she has been feeling better. She is noted to have bilateral pulmonary infiltrates consistent with COVID pneumonia although his maintaining a saturation without any subjective symptoms of shortness of breath. She feels a lot better blood pressure is improved with IV hydration. She has not been maintaining adequate oral hydration as per her. She has never had any prior history of cardiac issues. No prior history of atrial fibrillation. No prior any cardiovascular risk factors. CTA done yesterday did not show any evidence of pulmonary embolism. Review of Systems Constitutional: Constitutional: Denies chills, Denies fever(s), Reports lethargy and Reports weakness Eyes: Eyes: Reports no additional eye complaints ENT: Reports system reviewed and no additional complaints, except as documented Cardiovascular: Cardiovascular: Denies chest pain, Denies syncope, Reports lightheadedness, Denies Loss of Consciousness, Reports palpitations and Denies dyspnea Respiratory: Respiratory: Reports cough and Denies dyspnea Gastrointestinal: Gastrointestinal: Reports no additional gastrointestinal complaints Genitourinary: Genitourinary: Reports no additional female genitourinary complaints Musculoskeletal: Musculoskeletal: Reports no additional musculoskeletal complaints Integumentary/Breasts: Skin/Breast: Reports system reviewed and no additional complaints, except as docu Neurologic: Reports system reviewed and no additional complaints, except as documented, Denies syncope and Reports weakness Psychiatric: Psychiatric: Reports no additional psychiatric complaints Endocrine: Endocrine: Reports no additional endocrine complaints and Reports palpitations Hematologic/Lymphatic: Hematologic/Lymphatic: Reports no additional hematologic/lymphatic complaints Allergic/Immunologic: Allergic/Immunologic: Reports no additional allergic/immunologic complaints [facility] Past Medical History Medical History (Updated 08/16/21 @ 11:38 by Maykel Garcia MD) Hepatic steatosis Hypothyroidism Infertility Iron deficiency anemia Vitamin D deficiency Family History Family History Father Murder Mother Cardiovascular system problem Social History Social History Alcohol intake: never Patient Tobacco Use Status: Never used Tobacco Advance Directives: No Advance Directives Information Provided: No service: No Current occupational status: employed Meds Allergies Allergy/AdvReac Type Severity Reaction Status Date / Time aspirin [ASPIRIN] Allergy Unknown HIVES Verified 05/25/20 09:30 Active Medications: Current Medications Acetaminophen (Acetaminophen 325 Mg Tablet) 650 mg PO Q6H PRN PRN Reason: Pain, Mild (Pain Scale 1-3) Last Admin: 08/16/21 06:44 Dose: 650 mg Documented by: Enoxaparin Sodium (Enoxaparin Sodium 40 Mg/0.4 Ml Syringe) 40 mg SUBCUT Q24H [facility] Last Admin: 08/15/21 22:57 Dose: 40 mg Documented by: Diltiazem HCl 125 mg/ Sodium (Chloride) 125 mls @ 0 mls/hr IVCONT .Q0M KAROLINE; Protocol Last Titration: 08/15/21 21:52 Dose: 0 mg/hr, 0 mls/hr Documented by: Ceftriaxone Sodium 1 gm/ (Sodium Chloride) 50 mls @ 100 mls/hr IV Q24H [facility] Last Infusion: 08/16/21 03:37 Dose: Infused Documented by: Azithromycin 500 mg/ Sodium (Chloride) 250 mls @ 125 mls/hr IV Q24H [facility] Last Infusion: 08/16/21 03:37 Dose: Infused Documented by: Levothyroxine Sodium (Levothyroxine Sodium 125 Mcg Tablet) 125 mcg PO DAILY@0600 [facility] Last Admin: 08/16/21 06:44 Dose: 125 mcg Documented by: Melatonin (Melatonin 3 Mg Tablet) 6 mg PO BEDTIME PRN PRN Reason: Insomnia Morphine Sulfate (Morphine Sulfate 4 Mg/Ml Cartridge) 1 mg IVPUSH Q4H PRN; Protocol PRN Reason: Pain, SOB Pharmacy Consult (Consult Rx Perform Med Rec) 1 each MISCELLANE ONCE PRN PRN Reason: Consult order Senna (Sennosides 8.6 Mg Tablet) 17.2 mg PO BEDTIME PRN PRN Reason: Constipation Sodium Chloride (0.9 % Sodium Chloride Flush 3 Ml Syringe) 3 ml IVFLUSH QSHIFT KAROLINE Last Admin: 08/16/21 08:10 Dose: 3 ml Documented by: Home Medications Medication Instructions Recorded Confirmed Last Taken Type levothyroxine 125 mcg tablet 1 tab PO DAILY 08/15/21 08/15/21 08/15/21 History Physical Exam Vital Signs: Vital Signs: Last Vital Signs Temp 98.6 F 08/16/21 07:20 Pulse 68 08/16/21 07:20 Resp 25 H 08/16/21 07:20 BP 96/63 08/16/21 07:20 Pulse Ox 95 08/16/21 07:20 BMI result Body Mass Index 30.9 Const: General: cooperative, comfortable, no acute distress, alert and awake Nutritional Appearance: overweight Orientation/consciousness: patient oriented x3 Limitations: no limitations HENMT: Head: Yes normocephalic and Yes atraumatic Neck: Neck: Yes trachea midline, Yes supple and Yes no JVD Chest: Chest palpation & inspection: normal inspection of the chest Resp: Effort & Inspection: normal respiratory effort Auscultation: clear to auscultation bilaterally Cardio: Jugular venous distension: no JVD Palpation: normal PMI Rate: regular rate Rhythm: regular rhythm Heart sounds: S1 normal heart sound present, S2 normal heart sound present, no click, no gallops, no murmurs and no rubs GI: Auscultation: normal bowel sounds Skin: General skin exam: no rashes or lesions noted Neuro: General: patient oriented x3 and no focal motor deficits Extrem: General: Yes no clubbing, cyanosis or edema Objective Labs and Meds Result diagrams: 08/16/21 06:25 08/16/21 06:25 Lab results: Laboratory Results - last 24 hr 08/15/21 08/15/21 08/15/21 19:21 19:21 19:50 WBC RBC Hgb Hct MCV MCH MCHC RDW Plt Count MPV Immature Gran % (Auto) Neut % (Auto) Lymph % (Auto) [place] % (Auto) Eos % (Auto) Baso % (Auto) Lymph # (Auto) [place] # (Auto) Eos # (Auto) Baso # (Auto) Abs Immat Gran (auto) Absolute Neuts (auto) Absolute Nucleated RBC Nucleated RBC % (auto) Smear Tech's Comments ESR PT INR APTT D-Dimer High Sensitivty Sodium 141 Potassium 3.5 Chloride 107 Carbon Dioxide 26 Anion Gap 12 BUN 2 L Creatinine 0.67 Estim Creat Clear Calc 121.6 Estimated GFR > 60 Random Glucose 112 Lactic Acid Calcium 8.1 L Ferritin 406 H Total Bilirubin 0.4 AST 127 H ALT 154 H Alkaline Phosphatase 245 H D Lactate Dehydrogenase 394 H Troponin I High Sens C-Reactive Protein 3.36 H Total Protein 7.0 Albumin 3.5 Lipase 25 Procalcitonin TSH Urine Color YELLOW Urine Appearance CLEAR Urine pH 7.0 Ur Specific [place] 1.010 Urine Protein NEG Urine Glucose (UA) NEG Urine Ketones NEG Urine Blood NEG Urine Nitrite NEG Ur Leukocyte Esterase NEG Urine Opiates Screen Not Detected Urine Fentanyl Screen Not Detected Ur Barbiturates Screen Not Detected Ur Phencyclidine Scrn Not Detected Ur Amphetamines Screen Not Detected U Benzodiazepines Scrn Not Detected Urine Cocaine Screen Not Detected U Marijuana (THC) Screen Not Detected 08/15/21 08/15/21 08/15/21 19:50 19:50 19:50 WBC 4.2 L RBC 4.75 Hgb 14.1 Hct 41.9 MCV 88.2 MCH 29.7 MCHC 33.7 RDW 12.7 Plt Count 128 L MPV 10.7 Immature Gran % (Auto) 0.2 Neut % (Auto) 74.1 H Lymph % (Auto) 19.6 L [place] % (Auto) 6.1 Eos % (Auto) 0.0 Baso % (Auto) 0.0 Lymph # (Auto) 0.8 L [place] # (Auto) 0.3 Eos # (Auto) 0.0 Baso # (Auto) 0.0 Abs Immat Gran (auto) 0.01 Absolute Neuts (auto) 3.1 Absolute Nucleated RBC 0.000 Nucleated RBC % (auto) 0.0 Smear Tech's Comments VERIFIED ESR 22 H PT INR APTT D-Dimer High Sensitivty Sodium Potassium Chloride Carbon Dioxide Anion Gap BUN Creatinine Estim Creat Clear Calc Estimated GFR Random Glucose Lactic Acid Calcium Ferritin Total Bilirubin AST ALT Alkaline Phosphatase Lactate Dehydrogenase Troponin I High Sens C-Reactive Protein Total Protein Albumin Lipase Procalcitonin 0.08 TSH Urine Color Urine Appearance Urine pH Ur Specific [place] Urine Protein Urine Glucose (UA) Urine Ketones Urine Blood Urine Nitrite Ur Leukocyte Esterase Urine Opiates Screen Urine Fentanyl Screen Ur Barbiturates Screen Ur Phencyclidine Scrn Ur Amphetamines Screen U Benzodiazepines Scrn Urine Cocaine Screen U Marijuana (THC) Screen 08/15/21 08/15/21 08/15/21 19:50 19:50 19:50 WBC RBC Hgb Hct MCV MCH MCHC RDW Plt Count MPV Immature Gran % (Auto) Neut % (Auto) Lymph % (Auto) [place] % (Auto) Eos % (Auto) Baso % (Auto) Lymph # (Auto) [place] # (Auto) Eos # (Auto) Baso # (Auto) Abs Immat Gran (auto) Absolute Neuts (auto) Absolute Nucleated RBC Nucleated RBC % (auto) Smear Tech's Comments ESR PT 11.9 INR 1.0 APTT 28.5 D-Dimer High Sensitivty 182 Sodium Potassium Chloride Carbon Dioxide Anion Gap BUN Creatinine Estim Creat Clear Calc Estimated GFR Random Glucose Lactic Acid 1.5 Calcium Ferritin Total Bilirubin AST ALT Alkaline Phosphatase Lactate Dehydrogenase Troponin I High Sens 6.5 C-Reactive Protein Total Protein Albumin Lipase Procalcitonin TSH Urine Color Urine Appearance Urine pH Ur Specific [place] Urine Protein Urine Glucose (UA) Urine Ketones Urine Blood Urine Nitrite Ur Leukocyte Esterase Urine Opiates Screen Urine Fentanyl Screen Ur Barbiturates Screen Ur Phencyclidine Scrn Ur Amphetamines Screen U Benzodiazepines Scrn Urine Cocaine Screen U Marijuana (THC) Screen 08/15/21 08/15/21 08/16/21 19:50 22:45 06:25 WBC 3.5 L RBC 4.55 Hgb 13.5 Hct 40.0 MCV 87.9 MCH 29.7 MCHC 33.8 RDW 12.8 Plt Count 137 L MPV 10.2 Immature Gran % (Auto) 0.6 H Neut % (Auto) 55.3 Lymph % (Auto) 34.5 [place] % (Auto) 9.6 Eos % (Auto) 0.0 Baso % (Auto) 0.0 Lymph # (Auto) 1.2 [place] # (Auto) 0.3 Eos # (Auto) 0.0 Baso # (Auto) 0.0 Abs Immat Gran (auto) 0.02 Absolute Neuts (auto) 1.9 L Absolute Nucleated RBC 0.000 Nucleated RBC % (auto) 0.0 Smear Tech's Comments VERIFIED ESR PT INR APTT D-Dimer High Sensitivty Sodium Potassium Chloride Carbon Dioxide Anion Gap BUN Creatinine Estim Creat Clear Calc Estimated GFR Random Glucose Lactic Acid Calcium Ferritin Total Bilirubin AST ALT Alkaline Phosphatase Lactate Dehydrogenase Troponin I High Sens 9.6 C-Reactive Protein Total Protein Albumin Lipase Procalcitonin TSH 1.88 Urine Color Urine Appearance Urine pH Ur Specific [place] Urine Protein Urine Glucose (UA) Urine Ketones Urine Blood Urine Nitrite Ur Leukocyte Esterase Urine Opiates Screen Urine Fentanyl Screen Ur Barbiturates Screen Ur Phencyclidine Scrn Ur Amphetamines Screen U Benzodiazepines Scrn Urine Cocaine Screen U Marijuana (THC) Screen 08/16/21 06:25 WBC RBC Hgb Hct MCV MCH MCHC RDW Plt Count MPV Immature Gran % (Auto) Neut % (Auto) Lymph % (Auto) [place] % (Auto) Eos % (Auto) Baso % (Auto) Lymph # (Auto) [place] # (Auto) Eos # (Auto) Baso # (Auto) Abs Immat Gran (auto) Absolute Neuts (auto) Absolute Nucleated RBC Nucleated RBC % (auto) Smear Tech's Comments ESR PT INR APTT D-Dimer High Sensitivty Sodium 138 Potassium 3.2 L Chloride 106 Carbon Dioxide 25 Anion Gap 10 L BUN 2 L Creatinine 0.59 Estim Creat Clear Calc 138.0 Estimated GFR > 60 Random Glucose 93 Lactic Acid Calcium 7.7 L Ferritin Total Bilirubin AST ALT Alkaline Phosphatase Lactate Dehydrogenase Troponin I High Sens C-Reactive Protein Total Protein Albumin Lipase Procalcitonin TSH Urine Color Urine Appearance Urine pH Ur Specific [place] Urine Protein Urine Glucose (UA) Urine Ketones Urine Blood Urine Nitrite Ur Leukocyte Esterase Urine Opiates Screen Urine Fentanyl Screen Ur Barbiturates Screen Ur Phencyclidine Scrn Ur Amphetamines Screen U Benzodiazepines Scrn Urine Cocaine Screen U Marijuana (THC) Screen Imaging Radiologist's impression: Impressions Chest CTA 08/15/21 20:57 IMPRESSION: No evidence for pulmonary emboli. Patchy groundglass airspace disease bilaterally consistent with viral or atypical infectious etiology. VTE: Negative Assessment and Plan (1) Paroxysmal atrial fibrillation: Status: Acute Patient presents with new onset atrial fibrillation in setting of COVID pneumonia. Converted to sinus rhythm with rate control. Doing well. Most likely cause for her atrial fibrillation is hyperadrenergic state. Currently doing well and symptomatic Reyna better. Start on Toprol-XL 50 mg daily to prevent cardiac excitation. Also given her COVID status and atrial fibrillation would put her on Xarelto 20 mg daily at least for a month as long as she does have any clinical recurrence in long-term probably discontinue the same. This was discussed with her in details. She understands agrees. Will require outpatient workup including an echocardiogram and Holter monitor which will be scheduled once her overall COVID status and pneumonia status improves. (2) Near syncope: Status: Acute Near syncope in the setting of atrial fibrillation rapid ventricular response most likely due to rapid heart rate as well as intravascular volume depletion from dehydration. Strongly recommend adequate p.o. hydration as well salt intake. This was discussed with her. She understands agrees. Continue supportive care for COVID pneumonia. Advised to seek emergency care if she has significant new symptoms. Will follow up as outpatient in 4 weeks time. Thank you for allowing me to partake in the care Procedures Date of Service Date of Service: 08/16/21
--- NOTE | 2021-08-16 11:41 | MHC.CM.PN ---
Received notification patient will be discharged home without services. Patient will arrange transportation.
--- NOTE | 2021-08-16 11:42 | P.DS_ITS ---
DS: Providers Provider Date of Service: 08/16/21 Date of admission: 08/15/21 22:18 Primary care physician: Unknown Physician Consults: 08/15/21 22:18 Consult to Cardiology Routine Consulting Provider: Maykel Garcia Reason for consultation: New onset AFib Consult to Infectious Diseases Routine Consulting Provider: Delaney Villa Reason for consultation: COVID pneumonia DS: Diagnosis Discharge Diagnosis (1) Paroxysmal atrial fibrillation: Status: Acute (2) Near syncope: Status: Resolved DS: Summary Hospital Course Hospital Course: Chief Complaint: Near syncope 41-year-old female with a past medical history of hypothyroidism presented to the hospital with a chief complaint of near syncope.? Patient reported that over the past few days she has been having generalized weakness, body aches, not feeling well, cough, presented to the hospital for evaluation on 08/14/2021; noted to have COVID-19 positive but saturating well on room air; subsequently sent home; patient reported that after she left the hospital she still continued to feel weak in general; and today she felt lightheaded and dizzy; followed by she almost had a fainting attack but did not lose consciousness; did not have any falls; EMS was called and EMS noted her blood pressure noted to be 85/60; and recommended to come to the ER; but patient refused; in the evening patient reported that she had irregular heartbeat and palpitations; call the EMS and noted to have heart rate in 160s-AFib; given diltiazem and brought her to the hospital for further evaluation.? Denied any chest pain.? Denied any numbness tingling or focal weakness Denies any urinary symptoms.? Patient reports that she has been continued to have diarrhea.? Patient mentions that her was also admitted to the hospital here for COVID infection. Review of all other systems is negative except mentioned above ER course: Per ER team patient on presentation noted to be in AFib with rapid ventricular response-> with heart rate up to 160s; given diltiazem IV push followed by.? Patient was placed on diltiazem drip; 20 minutes later patient converted to normal sinus rhythm; diltiazem drip postop.? Patient received IV fluids; patient's blood pressure normalized; CT chest showed no evidence of pulmonary embolism but noted COVID-19 pneumonia.? Patient is saturating on room air and speaking in full sentences.? Admitted to the hospital for further management. Hospital course: patient was admitted due to AFIB with RVR and treated with IV cardizem and converted to sinus rythm and her Blood pressure has normalized. She remains in sinus, cardiology adivses Toprolol 50 daily and Xarelto 20 daily and will have further outpatient testing with Dr. Garcia. 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 Temp 98.6 F 08/16/21 07:20 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 4d Pulse 68 08/16/21 07:20 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 4d Resp 25 H 08/16/21 07:20 BP 96/63 08/16/21 07:20 Pulse Ox 95 08/16/21 07:20 BMI result Body Mass Index 30.9 Const: Other: General: AO X 3, no acute distress Resp: CTA bilateral CVS: S1,S2,RRR GI: +BS, NT, no distention Skin: No rash Neuro: motor grossly intact Psych: appropriate affect DS: Data Data Completed and Pending Labs on day of discharge: Laboratory Results - last 24 hr 08/15/21 08/15/21 08/15/21 19:21 19:21 19:50 WBC RBC Hgb Hct MCV MCH MCHC RDW Plt Count MPV Immature Gran % (Auto) Neut % (Auto) Lymph % (Auto) [place] % (Auto) Eos % (Auto) Baso % (Auto) Lymph # (Auto) [place] # (Auto) Eos # (Auto) Baso # (Auto) Abs Immat Gran (auto) Absolute Neuts (auto) Absolute Nucleated RBC Nucleated RBC % (auto) Smear Tech's Comments ESR PT INR APTT D-Dimer High Sensitivty Sodium 141 Potassium 3.5 Chloride 107 Carbon Dioxide 26 Anion Gap 12 BUN 2 L Creatinine 0.67 Estim Creat Clear Calc 121.6 Estimated GFR > 60 Random Glucose 112 Lactic Acid Calcium 8.1 L Ferritin 406 H Total Bilirubin 0.4 AST 127 H ALT 154 H Alkaline Phosphatase 245 H D Lactate Dehydrogenase 394 H Troponin I High Sens C-Reactive Protein 3.36 H Total Protein 7.0 Albumin 3.5 Lipase 25 Procalcitonin TSH Urine Color YELLOW Urine Appearance CLEAR Urine pH 7.0 Ur Specific [place] 1.010 Urine Protein NEG Urine Glucose (UA) NEG Urine Ketones NEG Urine Blood NEG Urine Nitrite NEG Ur Leukocyte Esterase NEG Urine Opiates Screen Not Detected Urine Fentanyl Screen Not Detected Ur Barbiturates Screen Not Detected Ur Phencyclidine Scrn Not Detected Ur Amphetamines Screen Not Detected U Benzodiazepines Scrn Not Detected Urine Cocaine Screen Not Detected U Marijuana (THC) Screen Not Detected 08/15/21 08/15/21 08/15/21 19:50 19:50 19:50 WBC 4.2 L RBC 4.75 Hgb 14.1 Hct 41.9 MCV 88.2 MCH 29.7 MCHC 33.7 RDW 12.7 Plt Count 128 L MPV 10.7 Immature Gran % (Auto) 0.2 Neut % (Auto) 74.1 H Lymph % (Auto) 19.6 L [place] % (Auto) 6.1 Eos % (Auto) 0.0 Baso % (Auto) 0.0 Lymph # (Auto) 0.8 L [place] # (Auto) 0.3 Eos # (Auto) 0.0 Baso # (Auto) 0.0 Abs Immat Gran (auto) 0.01 Absolute Neuts (auto) 3.1 Absolute Nucleated RBC 0.000 Nucleated RBC % (auto) 0.0 Smear Tech's Comments VERIFIED ESR 22 H PT INR APTT D-Dimer High Sensitivty Sodium Potassium Chloride Carbon Dioxide Anion Gap BUN Creatinine Estim Creat Clear Calc Estimated GFR Random Glucose Lactic Acid Calcium Ferritin Total Bilirubin AST ALT Alkaline Phosphatase Lactate Dehydrogenase Troponin I High Sens C-Reactive Protein Total Protein Albumin Lipase Procalcitonin 0.08 TSH Urine Color Urine Appearance Urine pH Ur Specific [place] Urine Protein Urine Glucose (UA) Urine Ketones Urine Blood Urine Nitrite Ur Leukocyte Esterase Urine Opiates Screen Urine Fentanyl Screen Ur Barbiturates Screen Ur Phencyclidine Scrn Ur Amphetamines Screen U Benzodiazepines Scrn Urine Cocaine Screen U Marijuana (THC) Screen 08/15/21 08/15/21 08/15/21 19:50 19:50 19:50 WBC RBC Hgb Hct MCV MCH MCHC RDW Plt Count MPV Immature Gran % (Auto) Neut % (Auto) Lymph % (Auto) [place] % (Auto) Eos % (Auto) Baso % (Auto) Lymph # (Auto) [place] # (Auto) Eos # (Auto) Baso # (Auto) Abs Immat Gran (auto) Absolute Neuts (auto) Absolute Nucleated RBC Nucleated RBC % (auto) Smear Tech's Comments ESR PT 11.9 INR 1.0 APTT 28.5 D-Dimer High Sensitivty 182 Sodium Potassium Chloride Carbon Dioxide Anion Gap BUN Creatinine Estim Creat Clear Calc Estimated GFR Random Glucose Lactic Acid 1.5 Calcium Ferritin Total Bilirubin AST ALT Alkaline Phosphatase Lactate Dehydrogenase Troponin I High Sens 6.5 C-Reactive Protein Total Protein Albumin Lipase Procalcitonin TSH Urine Color Urine Appearance Urine pH Ur Specific [place] Urine Protein Urine Glucose (UA) Urine Ketones Urine Blood Urine Nitrite Ur Leukocyte Esterase Urine Opiates Screen Urine Fentanyl Screen Ur Barbiturates Screen Ur Phencyclidine Scrn Ur Amphetamines Screen U Benzodiazepines Scrn Urine Cocaine Screen U Marijuana (THC) Screen 08/15/21 08/15/21 08/16/21 19:50 22:45 06:25 WBC 3.5 L RBC 4.55 Hgb 13.5 Hct 40.0 MCV 87.9 MCH 29.7 MCHC 33.8 RDW 12.8 Plt Count 137 L MPV 10.2 Immature Gran % (Auto) 0.6 H Neut % (Auto) 55.3 Lymph % (Auto) 34.5 [place] % (Auto) 9.6 Eos % (Auto) 0.0 Baso % (Auto) 0.0 Lymph # (Auto) 1.2 [place] # (Auto) 0.3 Eos # (Auto) 0.0 Baso # (Auto) 0.0 Abs Immat Gran (auto) 0.02 Absolute Neuts (auto) 1.9 L Absolute Nucleated RBC 0.000 Nucleated RBC % (auto) 0.0 Smear Tech's Comments VERIFIED ESR PT INR APTT D-Dimer High Sensitivty Sodium Potassium Chloride Carbon Dioxide Anion Gap BUN Creatinine Estim Creat Clear Calc Estimated GFR Random Glucose Lactic Acid Calcium Ferritin Total Bilirubin AST ALT Alkaline Phosphatase Lactate Dehydrogenase Troponin I High Sens 9.6 C-Reactive Protein Total Protein Albumin Lipase Procalcitonin TSH 1.88 Urine Color Urine Appearance Urine pH Ur Specific [place] Urine Protein Urine Glucose (UA) Urine Ketones Urine Blood Urine Nitrite Ur Leukocyte Esterase Urine Opiates Screen Urine Fentanyl Screen Ur Barbiturates Screen Ur Phencyclidine Scrn Ur Amphetamines Screen U Benzodiazepines Scrn Urine Cocaine Screen U Marijuana (THC) Screen 08/16/21 06:25 WBC RBC Hgb Hct MCV MCH MCHC RDW Plt Count MPV Immature Gran % (Auto) Neut % (Auto) Lymph % (Auto) [place] % (Auto) Eos % (Auto) Baso % (Auto) Lymph # (Auto) [place] # (Auto) Eos # (Auto) Baso # (Auto) Abs Immat Gran (auto) Absolute Neuts (auto) Absolute Nucleated RBC Nucleated RBC % (auto) Smear Tech's Comments ESR PT INR APTT D-Dimer High Sensitivty Sodium 138 Potassium 3.2 L Chloride 106 Carbon Dioxide 25 Anion Gap 10 L BUN 2 L Creatinine 0.59 Estim Creat Clear Calc 138.0 Estimated GFR > 60 Random Glucose 93 Lactic Acid Calcium 7.7 L Ferritin Total Bilirubin AST ALT Alkaline Phosphatase Lactate Dehydrogenase Troponin I High Sens C-Reactive Protein Total Protein Albumin Lipase Procalcitonin TSH Urine Color Urine Appearance Urine pH Ur Specific [place] Urine Protein Urine Glucose (UA) Urine Ketones Urine Blood Urine Nitrite Ur Leukocyte Esterase Urine Opiates Screen Urine Fentanyl Screen Ur Barbiturates Screen Ur Phencyclidine Scrn Ur Amphetamines Screen U Benzodiazepines Scrn Urine Cocaine Screen U Marijuana (THC) Screen Discharge Plan Discharge Anticipated Discharge Date/Time: 08/16/21 11:29 Patient Disposition: Home, Self-Care Discharge Diagnosis: AFIB, covid Referrals: Physician,Unknown J [Physician] - 1 Week Discharge Medications: New Xarelto 20 mg tablet 20 mg PO DAILY Qty: 30 0RF Rx Instructions: must administer with evening meal Continued levothyroxine 125 mcg tablet 1 tab PO DAILY 0RF No Action ferrous gluconate 324 mg (38 mg iron) tablet 1 tab PO TID 0RF Discharge Orders: Discharge Order (Routine); Ordered 08/16/21 Ordered By: Scott Gamboa Diet: advance to usual diet Activity on Discharge: As tolerated Stand Alone Forms: Patient Portal Discharge page, Work/School Release Care Plan Goals: Full recovery from covid, managment of afib Health Concerns: afib, covid Plan of Treatment: Take Toprol 50 mg daily, Xarelto 20 mg daily and follow up with Dr. Radha Follow CDC isolation guideline, or check with your work when you can return Assessment: as above Discharge Date/Time: 08/16/21 14:06
[2021-08-16 12:29] VITALS: BP 97/61; PULSE 59; RESP 18; O2SAT 97
[2021-08-16] MEDS: Rivaroxaban 20 MG TABLET PO (12:36)
[2021-08-17 12:00] LABS: HBS Num1 40.58 mIU/mL (0-7.99); ~Hepatitis B Surface Antibody REACTIVE (Nonreactive)
[2021-08-17 12:08] LABS: HBc Num1 0.11 S/CO (0.00-0.79); Hepatitis B Core Antibody Nonreactive (Nonreactive); Hepatitis B Surface Antigen Negative (Negative); ~HepC Num1 2.86 S/CO (0.00-0.79); ~Hepatitis C Antibody Reactive (Nonreactive)
[2021-08-21 07:50] LABS: HBsAGNum1 0.14 S/CO (0.00-0.99)
[2021-08-21 08:36] LABS: Hepatitis A Antibody IgM 0.19 Index (0-0.79); ~Hepatitis A Antibody IgM Nonreactive (Nonreactive)
== END 2021-08-16 14:06 | disposition home or self-care (01) | DRG 177 ==
LOC: HO.ED 22:26 → HO.EDOVER 22:39
PROVIDERS: Admitting Provider Hospitalist; Emergency Provider Emergency Medicine Emergency Medical Services; PCP Nurse Practitioner Family; Visit Provider Internal Medicine
DX: U07.1 COVID-19 (principal); J12.82 Pneumonia due to coronavirus disease 2019; I95.9 Hypotension, unspecified; I48.0 Paroxysmal atrial fibrillation; E86.0 Dehydration; E03.9 Hypothyroidism, unspecified; Z79.01 Long term (current) use of anticoagulants; Z79.890 Hormone replacement therapy; Z79.899 Other long term (current) drug therapy
CPT/HCPCS: 36415; 71275; 80048; 80053; 80307; 81003; 82728; 83605; 83615; 83690; 84145; 84443; 84484; 85025; 85379; 85610; 85652; 85730; 86140; 86704; 86706; 86709; 86803; 87040; 87340; 93005; 96361; 96365; 96375; 99285; 99291; J0456; J0696; J1650; Q9967

== ENCOUNTER → 2021-08-26 08:33 | Outpatient (REF) | payer OTHER, SELFPAY ==
--- NOTE | 2021-08-26 08:37 | CA_ITS ---
Transthoracic Echocardiogram Patient (Last, First, Middle): Betsy Sorensen, Gender: Female Date of : 1980 Age: 41 Procedure Date: 08/26/2021 Procedure Type: Transthoracic Echocardiogram Location: OP Height: 167.64 cm Weight: 86.18 kg BSA: 1.96 m2 Heart Rate: bpm BP: 122 / 70 mmHg Computer Systems Integrator: Referring MD: Maykel Garcia MD Symptoms: I48.0 - Paroxysmal atrial fibrillation Study Quality: Fair ECG Rhythm: Sinus Conclusions: - The left ventricular systolic function is low normal. The visually estimated ejection fraction is between 50-55%. - No obvious valvular pathology seen on this study. Findings Procedure Information Contrast agent, definity, is being given per protocol without apparent complications. Left Ventricle Normal left ventricular cavity size. There is normal left ventricular wall thickness. The left ventricular systolic function is low normal. The visually estimated ejection fraction is between 50-55%. There is no evidence of regional wall motion abnormalities. Diastolic function is normal for age. Right Ventricle Normal right ventricular cavity size and systolic function. Atria Both atria are normal in size. Aortic Valve There is a normal trileaflet aortic valve. There is no aortic valve stenosis. There is trace (trivial) aortic valve regurgitation. Mitral Valve The mitral valve appears normal. There is trace mitral valve regurgitation. There is no mitral valve stenosis. Pulmonic Valve The pulmonic valve was not well visualized. Tricuspid Valve There is trace tricuspid valve regurgitation. The pulmonary artery systolic pressure is normal. Great Vessels The aortic annulus, sinuses of valsalva, and asc aorta are normal in size. Venous The inferior vena cava was not well visualized. Pericardium/Pleural There is no evidence of pericardial effusion. Prior Study Comparison No prior study available for comparison. Recommendations, Care & Conclusions No obvious valvular pathology seen on this study. Measurements 2D Linear Measurements Ao Root: 2.90 2.1-3.5 cm LVOT Diam: 2.20 3.0+(-)1.3 cm 2D Systolic Function EF 4C: 65.00 >55% EF 2C: 54.50 >55% Mitral Valve MV Pk E: 0.52 MV PK A: 0.39 MV Decel Time: 178.00 E/A: 1.30 E'Lateral: 6.31 E'Medial: 7.40 E/E' Med: 7.10 E/E' Lat: 8.30 PHT: 52.00 MVA PHT: 4.23 Decel [place]: 2.94 Aortic Valve AoV Pk Javon: 1.04 AoV Mn Javon: 0.73 AoV VTI: 0.25 AoV Pk Grad: 4.00 Aov Mn Grad: 2.00 BERYL Cont.VTI: 2.38 LVOT LVOT Pk Javon: 0.76 LVOT Mn Javon: 0.48 LVOT VTI: 0.15 LVOT Pk Grad: 2.00 LVOT Mn Grad: 1.00 LVOT Diam: 2.20 LVOT Area: 3.80 Diastolic Function MV Pk E: 0.52 MV Pk A: 0.39 E/A: 1.30 E'Medial: 7.40 E/E' Med: 7.10 E' Laterial: 6.31 E/E' Lat: 8.30 Right Ventricle TAPSE (mm): 22.00 Tricuspid Valve TR Pk Javon: 1.99 TR Pk Grad: 16.00 Great Vessels Aorta Ao Root-2D: 2.90 2.0-3.7 cm Ao Asc: 3.20 2.1-3.4 cm Pulmonary Valve PV Pk Javon: 0.58 Peak PV Grad: 1.00 Updated in Other Vendor System with Status of Final Zach Puentes MD electronically signed on 08/26/2021 11:53:53 AM with status of Final
--- NOTE | 2021-08-26 08:37 | HM_ITS ---
Total monitoring time 3 days. Underlying rhythm is sinus. Minimum heart rate 42/Min. Maximum 116/Min. Average 73/Min. No atrial fibrillation or flutter or AV blocks or pauses. Very rare supraventricular ectopy with minimal burden. No patient events. MTDD
== END ==
LOC: HO.CARD 08:33
PROVIDERS: PCP Nurse Practitioner Family; Visit Provider Internal Medicine Cardiovascular Disease
DX: I48.0 Paroxysmal atrial fibrillation (principal); R55 Syncope and collapse
CPT/HCPCS: 93242; 93306; Q9957

== ENCOUNTER 2021-08-28 19:46 | Emergency (ER) | payer OTHER, SELFPAY ==
--- NOTE | ~2021-08-28 | CT_ITS ---
EXAMINATION: CT HEAD WITHOUT CONTRAST CLINICAL INFORMATION: Left-sided paresthesia COMPARISON: None TECHNIQUE: Contiguous axial imaging was performed from the skull base to vertex without intravenous administration of contrast. This CT examination was performed using dose optimization techniques as appropriate, variously including the following: *Automated exposure control *Adjustment of mA and/or kV according to patient size (this includes techniques or standardized protocols for targeted exams where dose is matched to indication/reason for exam; i.e. extremities or head) *Use of iterative reconstruction technique DLP: 775 mGy-cm FINDINGS: There is no evidence of acute intracranial hemorrhage or territorial infarction. No abnormal mass effect or midline shift is seen. Lin to white matter differentiation is well preserved. No extra-axial fluid collections are identified. The ventricles are normal in size. There is no abnormal attenuation within the brain parenchyma. The osseous structures and soft tissues are normal. The mastoid air cells and visualized portions of the paranasal sinuses are well aerated. CT/CT head/brain wo con IMPRESSION: No acute intracranial process seen.
--- NOTE | ~2021-08-28 | XR_ITS ---
EXAMINATION: PORTABLE CHEST 1 VIEW CLINICAL INFORMATION: cough . COMPARISON: 08/14/2021. TECHNIQUE: Portable frontal view of the chest was obtained. FINDINGS: Patchy bilateral airspace disease has shown some improvement when compared to the 08/14/2021 study. No superimposed additional focal infiltrate, effusion, edema, or pneumothorax. Cardiac and mediastinal silhouettes within normal limits for the technique. XR/XR chest 1V IMPRESSION: Improving patchy bilateral airspace disease when compared to the 08/14/2021 study.
[2021-08-28 20:02] VITALS: BP 104/66; PULSE 85; RESP 18; TEMP 36.2; O2SAT 98
--- NOTE | 2021-08-28 20:10 | PC.NURSE ---
Assumed care of pt from WR, c/f stroke per technical systems architect. Pt ambulatory and in NAD, no neuro deficits. Vitals as charted. PIV placed, POC glucose obtained, attached to playground monitor.
[2021-08-28 20:12] VITALS: BP 123/75; PULSE 79; RESP 18; O2SAT 100
--- NOTE | 2021-08-28 20:12 | ECG_ITS ---
Test Reason : STROKE Blood Pressure : / mmHG Vent. Rate : 076 BPM Atrial Rate : 076 BPM P-R Int : 168 ms QRS Dur : 074 ms QT Int : 420 ms P-R-T Axes : 015 -14 008 degrees QTc Int : 472 ms Normal sinus rhythm Normal ECG When compared with ECG of 15-AUG-2021 21:33, No significant change was found Referred By: Alberto Rehman Electronically Signed By:Bradford Fregoso
--- NOTE | 2021-08-28 20:17 | ED.NEUROSD ---
HPI - Neuro Symptoms/Deficit General Chief Complaint: Stroke Stated Complaint: heart attack? Time Seen by Provider: 08/28/21 20:10 Source: patient Mode of arrival: ambulatory Limitations: no limitations History of Present Illness HPI Narrative: Patient's history of AFib on Xarelto around 16:00 patient notices all of a sudden chest discomfort and then tingling of the left hand and left side of the face without any weakness no nausea no vomiting no shortness of breath patient ambulatory no headache Related Data Home Medications Medication Instructions Recorded Confirmed levothyroxine 125 mcg tablet 1 tab PO DAILY 08/15/21 08/27/21 ferrous gluconate 324 mg (38 mg 1 tab PO TID 08/27/21 08/27/21 iron) tablet Previous Rx's Medication Instructions Recorded rivaroxaban 20 mg tablet (Xarelto) 20 mg PO DAILY #30 tab 08/16/21 Allergies Allergy/AdvReac Type Severity Reaction Status Date / Time aspirin [ASPIRIN] Allergy Unknown HIVES Verified 08/28/21 20:02 Review of Systems Review of Systems: Yes all other systems are reviewed and are negative [facility] Past Medical History Medical History COVID-19 Hepatic steatosis Hypothyroidism Infertility Iron deficiency anemia Pneumonia due to COVID-19 virus Uterine polyp Vitamin D deficiency Surgical History Hx of biopsy Family History Family History Father Murder Mother Cardiovascular system problem Social History Social History Alcohol intake: never Patient Tobacco Use Status: Never used Tobacco Advance Directives: No Advance Directives Information Provided: Yes Patient : No service: No Current occupational status: employed 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 Physical Exam Vital Signs: Vital Signs: Last Vital Signs Temp 97.1 F 08/28/21 20:02 Pulse 79 08/28/21 20:12 Resp 18 08/28/21 20:12 BP 123/75 08/28/21 20:12 Pulse Ox 100 08/28/21 20:12 BMI result Body Mass Index 0.0 Appearance: Alert. Oriented X3. No acute distress. Eyes: PERRLA, No Nystagmus ENT: Pharynx normal. Oral Mucosa moist Neck: Normal inspection. Neck supple. CVS: Normal heart rate and rhythm. Pulses normal. Respiratory: No respiratory distress. Equal air entry bilateral, no wheezing/rales/rhonchi Abdomen: Soft and nontender. Bowel sounds are present, no mass palpable, no CVA tenderness Skin: Skin warm and dry. Normal skin color. Normal skin turgor. Extremities: No lower extremity edema. No calf tenderness Neuro: Oriented X 3. No motor deficit. No sensory deficit.No cerebellar signs , cranial nerves II-XII intact MDM - Neuro Symptoms/Deficit MDM Narrative Medical decision making narrative: Patient with left-sided paresthesia CT scan of the head is negative for acute bleed or stroke no motor weakness patient seems to be slightly anxious patient advised to follow with PCP report to the ER if any motor weakness Lab Data Attestation: I reviewed the patient's lab results. Result diagrams: 08/28/21 20:14 08/28/21 20:14 Labs: Lab Results 08/28/21 08/28/21 08/28/21 Range/Units 20:11 20:14 20:14 WBC 8.5 (4.8-10.8) X10*3/uL RBC 4.21 (4.20-5.50) X10*6/uL Hgb 12.9 (12.0-16.0) g/dl Hct 37.5 (37.0-47.0) % MCV 89.1 (80.0-98.0) fL MCH 30.6 (27.0-33.0) pg MCHC 34.4 (31.0-35.0) g/dl RDW 13.1 (11.0-16.0) % Plt Count 278 (160-400) X10*3/uL MPV 9.6 (9.4-12.3) fL Immature Gran % (Auto) 0.4 (0.0-0.4) % Neut % (Auto) 69.0 (45-73) % Lymph % (Auto) 20.7 (20-40) % [place] % (Auto) 8.6 (2-11) % Eos % (Auto) 0.9 (0-4) % Baso % (Auto) 0.4 (0-2) % Lymph # (Auto) 1.8 (1.2-4.9) X10*3/uL [place] # (Auto) 0.7 (0.1-1.2) X10*3/uL Eos # (Auto) 0.1 (0.0-0.4) X10*3/uL Baso # (Auto) 0.0 (0.0-0.2) X10*3/uL Abs Immat Gran (auto) 0.03 (0.00-0.03) X10*3/uL Absolute Neuts (auto) 5.9 (2.0-8.3) x10*3/uL Absolute Nucleated RBC 0.000 (0.0-0.012) X10*3/uL Nucleated RBC % (auto) 0.0 (0.0-0.2) /100WBC PT (9.9-13.0) SEC INR (0.9-1.1) APTT (24.1-38.0) SEC Sodium 141 (135-145) mmol/L Potassium 3.8 (3.3-5.1) mmol/L Chloride 106 (96-108) mmol/L Carbon Dioxide 28 (22-29) mmol/L Anion Gap 11 L (12-20) BUN 7 L D (9-16) mg/dL Creatinine 0.89 (0.5-1.4) mg/dL Estim Creat Clear Calc TNP Estimated GFR > 60 POC Glucose 97 (60-115) mg/dL Random Glucose 104 (60-115) mg/dL Calcium 9.1 D (8.4-10.2) mg/dL Magnesium 1.9 (1.6-2.6) mg/dL Troponin I High Sens (<3.5-17.0) ng/L 08/28/21 08/28/21 Range/Units 20:14 20:14 WBC (4.8-10.8) X10*3/uL RBC (4.20-5.50) X10*6/uL Hgb (12.0-16.0) g/dl Hct (37.0-47.0) % MCV (80.0-98.0) fL MCH (27.0-33.0) pg MCHC (31.0-35.0) g/dl RDW (11.0-16.0) % Plt Count (160-400) X10*3/uL MPV (9.4-12.3) fL Immature Gran % (Auto) (0.0-0.4) % Neut % (Auto) (45-73) % Lymph % (Auto) (20-40) % [place] % (Auto) (2-11) % Eos % (Auto) (0-4) % Baso % (Auto) (0-2) % Lymph # (Auto) (1.2-4.9) X10*3/uL [place] # (Auto) (0.1-1.2) X10*3/uL Eos # (Auto) (0.0-0.4) X10*3/uL Baso # (Auto) (0.0-0.2) X10*3/uL Abs Immat Gran (auto) (0.00-0.03) X10*3/uL Absolute Neuts (auto) (2.0-8.3) x10*3/uL Absolute Nucleated RBC (0.0-0.012) X10*3/uL Nucleated RBC % (auto) (0.0-0.2) /100WBC PT 15.1 H (9.9-13.0) SEC INR 1.3 H (0.9-1.1) APTT 39.1 H D (24.1-38.0) SEC Sodium (135-145) mmol/L Potassium (3.3-5.1) mmol/L Chloride (96-108) mmol/L Carbon Dioxide (22-29) mmol/L Anion Gap (12-20) BUN (9-16) mg/dL Creatinine (0.5-1.4) mg/dL Estim Creat Clear Calc Estimated GFR POC Glucose (60-115) mg/dL Random Glucose (60-115) mg/dL Calcium (8.4-10.2) mg/dL Magnesium (1.6-2.6) mg/dL Troponin I High Sens 4.4 D (<3.5-17.0) ng/L ECG Data Attestation: I personally reviewed and interpreted this ECG as follows: Interpretation: Normal sinus rhythm heart rate 76 beats per minute normal intervals normal axis no acute ischemic changes impression normal EKG NIH Stroke Scale Internal: Initial- Upon Arrival Level of Consciousness: Alert Level of Consciousness Questions: Answers both questions correctly Level of Consciousness Commands: Performs both tasks correctly Best Gaze: Normal Visual: No visual loss Facial Palsy: Normal Motor Arm (Right): No drift Motor Arm (Left): No drift Motor Leg (Right): No drift Motor Leg (Left): No drift Limb Ataxia: Absent Sensory: Normal Best Language: No aphasia Dysarthia: Normal Extinction and Inattention: No abnormality Score: 0 Discharge Plan Discharge Clinical Impression: Paresthesia Patient Disposition: Home, Self-Care Instructions: Paresthesia (ED) Additional Instructions: Follow with your PCP as needed Report to the ER if severe headache Prescriptions: No Action ferrous gluconate 324 mg (38 mg iron) tablet 1 tab PO TID RF: 0 levothyroxine 125 mcg tablet 1 tab PO DAILY RF: 0 Xarelto 20 mg tablet 20 mg PO DAILY Qty: 30 RF: 0 Interventions: ED Discharge Assessment Last Done: 08/28/21 22:53 Discharge Date/Time: 08/28/21 22:53
[2021-08-28 20:18] LABS: Glucose, Whole Blood 97 mg/dL (60-115)
[2021-08-28 20:22] LABS: MANUAL DIFF FLAG NO
[2021-08-28 20:23] LABS: Basophils Percent Auto 0.4 % (0-2); Eosinophils Absolute Auto 0.1 X10*3/uL (0.0-0.4); Eosinophils Percent Auto 0.9 % (0-4); Hematocrit 37.5 % (37.0-47.0); Hemoglobin 12.9 g/dl (12.0-16.0); Imm Gran Abs Auto 0.03 X10*3/uL (0.00-0.03); Imm Gran Pct Auto 0.4 % (0.0-0.4); Lymphocytes Absolute Auto 1.8 X10*3/uL (1.2-4.9); Lymphocytes Percent Auto 20.7 % (20-40); Mean Corpuscular HGB Conc 34.4 g/dl (31.0-35.0); Mean Corpuscular Hemoglobin 30.6 pg (27.0-33.0); Mean Corpuscular Volume 89.1 fL (80.0-98.0); Mean Platelet Volume 9.6 fL (9.4-12.3); Monocytes Absolute Auto 0.7 X10*3/uL (0.1-1.2); Monocytes Percent Auto 8.6 % (2-11); Neutrophils Absolute Auto 5.9 x10*3/uL (2.0-8.3); Platelet Count 278 X10*3/uL (160-400); Red Blood Count 4.21 X10*6/uL (4.20-5.50); Red Cell Distribution Width 13.1 % (11.0-16.0); White Blood Count 8.5 X10*3/uL (4.8-10.8)
[2021-08-28 20:29] LABS: INTERNATIONAL NORM RATIO 1.3 (0.9-1.1); Prothrombin Time 15.1 SEC (9.9-13.0)
[2021-08-28 20:32] LABS: Partial Thromboplastin Time 39.1 SEC (24.1-38.0)
[2021-08-28 20:41] LABS: Anion Gap 11 (12-20); Blood Urea Nitrogen 7 mg/dL (9-16); Calcium 9.1 mg/dL (8.4-10.2); Carbon Dioxide 28 mmol/L (22-29); Chloride 106 mmol/L (96-108); Estimated Glomerular Filt Rate > 60; Glucose Random 104 mg/dL (60-115); Magnesium 1.9 mg/dL (1.6-2.6); Potassium 3.8 mmol/L (3.3-5.1); Sodium 141 mmol/L (135-145)
[2021-08-28 20:47] LABS: Troponin-I High Sensitivity 4.4 ng/L (<3.5-17.0)
== END 2021-08-28 22:53 | disposition home or self-care (01) ==
PROVIDERS: Emergency Provider Internal Medicine; PCP Nurse Practitioner Family
DX: I48.91 Unspecified atrial fibrillation (principal); R20.2 Paresthesia of skin; R29.700 NIHSS score 0; Z79.01 Long term (current) use of anticoagulants; Z79.899 Other long term (current) drug therapy
CPT/HCPCS: 36415; 70450; 71045; 80048; 82947; 83735; 84484; 85025; 85610; 85730; 93005; 99283; 99284

== ENCOUNTER → 2021-10-01 09:18 | Outpatient (BNVA) | payer OTHER, SELFPAY | PROVIDERS: PCP Nurse Practitioner Family; Visit Provider Internal Medicine Cardiovascular Disease | DX: I48.0 Paroxysmal atrial fibrillation (principal); R00.1 Bradycardia, unspecified | CPT/HCPCS: 93005 ==

== ENCOUNTER 2023-02-02 10:39 | Outpatient (REF) | payer OTHER, SELFPAY | END 2023-02-02 10:40 | disposition home or self-care (01) | LOC: HO.MDS 10:39 | PROVIDERS: Visit Provider Internal Medicine | DX: D50.9 Iron deficiency anemia, unspecified (principal) | CPT/HCPCS: 96365; J1756 ==

== ENCOUNTER 2023-02-09 10:52 | Outpatient (REF) | payer OTHER, SELFPAY | END 2023-02-09 10:53 | disposition home or self-care (01) | LOC: HO.MDS 10:52 | PROVIDERS: PCP Nurse Practitioner Family; Visit Provider Internal Medicine | DX: D50.9 Iron deficiency anemia, unspecified (principal) | CPT/HCPCS: 96374; J1756 ==

== ENCOUNTER 2023-02-09 12:06 | Emergency (ER) | payer OTHER, SELFPAY ==
[2023-02-09 12:15] VITALS: BP 143/85; PULSE 62; RESP 18; TEMP 36.8; O2SAT 99; BMI 33.3
--- NOTE | 2023-02-09 12:18 | ED.NEUROSD ---
HPI - Neuro Symptoms/Deficit General Chief Complaint: Neuro Symptoms/Deficit Stated Complaint: Reaction to iron infusion Time Seen by Provider: 02/09/23 12:30 Source: patient and family Mode of arrival: ambulatory Limitations: no limitations History of Present Illness HPI Narrative: 42-year-old female history of fatty liver, hypothyroidism, infertility, hello who presents emergency department for evaluation of altered mental status after getting an iron infusion. The patient has a history of iron deficient anemia and is being managed by the deputy manager, Dr. Cisneros. The patient has been getting IV infusions of iron. The patient had a transfusion 1 week prior and was seen [facility] the [facility] transfusion. Patient states that the transfusion started around 11:00 and she fell asleep during the transfusion. She believes that she was finished with her transfusion at around noon. As she was walking out to the car she told her that everything looked unusually bright. She then felt like she was drunk/intoxicated her speech was slurred and she felt weak. Her then brought her to the emergency department for evaluation. On presentation, patient was awake but appeared to be altered, her speech was slurred, she had generalized weakness. I did speak to the nurse in the outpatient transfusion center. The patient was given Venofer (iron sucrose) 200 mg IV over approximately 30-45 minutes. The nurse states the patient was sleeping during the transfusion which is not unusual when transfusing this medication. The patient appeared well at the time of discharge. The nurse told me that the patient had Venofer transfused at her last visit as well. Related Data Home Medications Medication Instructions Recorded Confirmed levothyroxine 125 mcg tablet 125 mcg PO DAILY 10/01/21 01/21/23 magnesium 500 tab PO DAILY 01/21/23 01/21/23 melatonin 5 mg chewable tablet 5 mg PO BEDTIME PRN Sleep 01/21/23 01/21/23 Allergies Allergy/AdvReac Type Severity Reaction Status Date / Time aspirin [ASPIRIN] Allergy Unknown HIVES Verified 08/28/21 20:02 shellfish derived Allergy Anaphylaxis Verified 02/09/23 12:17 Review of Systems Review of Systems: Yes all other systems are reviewed and are negative PMFSH Past Medical History PMFSH Narrative: Social history: Patient denies tobacco use. She states she occasionally drinks alcohol. She denies drug use. 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 Physical Exam Vital Signs: Vital Signs: Last Vital Signs Temp 98.3 F 02/09/23 12:15 Pulse 62 02/09/23 12:15 Resp 18 02/09/23 12:15 BP 143/85 H 02/09/23 12:15 Pulse Ox 99 02/09/23 12:15 O2 Del Method Room Air 02/09/23 12:15 BMI result Body Mass Index 33.3 Vital signs were unremarkable. General: The patient is awake but has slurred speech, she does answer questions appropriately HEENT: Head is normal cephalic atraumatic, pupils were equal round reactive light, sclera contact however normal, mouth revealed moist membranes Neck: Supple, no adenopathy Lungs: Clear to auscultation breath sounds symmetric bilateral Heart: Regular rate rhythm, normal S1-S2, no murmurs rubs gallops Abdomen: Soft, nontender, nondistended, normoactive bowel sounds Back: No CVA tenderness Extremities: Extremities are neurovascular intact, no swelling or edema Neuro: Patient is oriented to person and place, cranial nerves 2-12 are intact, patient has diffuse weakness but is able to raise her arms against gravity and legs against gravity symmetrically, reflexes are 1+ and symmetric. Course Course Course Narrative: RME: 42 yold female presents to the ED for feeling drunk after being given Iron IV infusion twenty minutes ago. Patient is A0x3 and negative neuro deficits. patient speaks and acts like inebretaition, but denies drug use. patient brought to the ED by Charge nurse Medications Administered Discontinued Medications Generic Name Dose Route Start Last Admin Trade Name Freq PRN Reason Stop Dose Admin Naloxone HCl 8 mg 02/09/23 13:13 02/09/23 13:23 Naloxone Hcl Nasal Take Home 4 Mg [place] NOSTRILALT 02/09/23 13:14 8 mg ONCE ONE Administration Medical Decision Making Medical Decision Making [facility] Narrative: 42-year-old female who presents emergency department for evaluation of altered mental status with slurred speech and weakness after receiving an iron transfusion (Venofor-iron sucrose) today. Patient had a similar transfusion 1 week prior states that she felt slightly finding after the transfusion however today's presentation was much more significant. The patient had generalized weakness, slurred speech and appeared to be altered. Following tests were ordered: CBC, CMP, ethanol level, drug screen urine, urine test, urinalysis, point of care glucose, 12 EKG. 1501: Laboratory evaluation did reveal an elevated iron level up 758 with upper limit of normal being 170 which confirms that the patient did get an iron transfusion today. Urine tox screen was negative I did discuss patient's presentation with poison Control and they discuss the patient's presentation with her fabrics and material cutter. Their opinion was that this was a very unusual reaction to an iron transfusion in suggested that we look for other causes of her symptoms. I did give the patient intranasal Narcan and the patient did wake up however I do not think that the Narcan reverse opiate narcosis but hyper-stimulated the patient's nasal passages similar to a ammonia smelling salts causing her to wake up. The patient complained that the Narcan had awful taste and seemed agitated by the taste. I did discuss this with the patient and her , the patient had an adverse reaction to Venofer and she should follow-up with Dr. Cisneros to discuss whether there is an alternative to this medicate and that she should not get another dose until she is cleared by her deputy manager. Differential Diagnosis Differential diagnosis includes but is not limited to adverse drug reaction, opiate/narcotic exposure, alcohol intoxication, hypoglycemia, anxiety reaction, Admission/Observation Consideration of admission/observation: Escalation of care including admission/observation considered Consult Healthcare Provider Management of the patient was discussed with: Mechanical Inspector (Poison control fabrics and material cutter) Lab Data [facility] Lab Attestation statement: I reviewed the patient's lab results. My interpretation patient's laboratory evaluation is as follows: He CMP was normal. Urinalysis was negative. Urine tox screen was negative. Point of care glucose was normal at 87. Patient's serum iron level was high at 758 which confirms that she did receive IV iron. 02/09/23 12:36 02/09/23 12:36 Labs: Lab Results 02/09/23 02/09/23 02/09/23 Range/Units 12:35 12:35 12:36 WBC Cancelled RBC Cancelled Hgb Cancelled Hct Cancelled MCV Cancelled MCH Cancelled MCHC Cancelled RDW Cancelled Plt Count Cancelled MPV Cancelled Immature Gran % (Auto) Cancelled Neut % (Auto) Cancelled Lymph % (Auto) Cancelled [place] % (Auto) Cancelled Eos % (Auto) Cancelled Baso % (Auto) Cancelled Lymph # (Auto) Cancelled [place] # (Auto) Cancelled Eos # (Auto) Cancelled Baso # (Auto) Cancelled Abs Immat Gran (auto) Cancelled Absolute Neuts (auto) Cancelled Absolute Nucleated RBC Cancelled Nucleated RBC % (auto) Cancelled Sodium (135-145) mmol/L Potassium (3.3-5.1) mmol/L Chloride (96-108) mmol/L Carbon Dioxide (22-29) mmol/L Anion Gap (12-20) BUN (9-16) mg/dL Creatinine (0.5-1.4) mg/dL Estim Creat Clear Calc Estimated GFR POC Glucose (60-115) mg/dL Random Glucose (60-115) mg/dL Calcium (8.4-10.2) mg/dL Iron (30-160) mcg/dL TIBC (228-428) mcg/dL % Saturation (15-50) % Unsat Iron Binding ug/dL Total Bilirubin (0.0-1.0) mg/dL AST (5-31) U/L ALT (0-31) U/L Alkaline Phosphatase (39-117) U/L Total Protein (6.5-8.0) g/dL Albumin (3.5-5.0) g/dL Urine Color Urine Appearance Urine pH (5.0-9.0) Ur Specific [place] (1.005-1.025) Urine Protein (Neg-Trace) mg/dL Urine Glucose (UA) (Negative) mg/dL Urine Ketones (Negative) mg/dL Urine Blood (Negative) Urine Nitrite (Negative) Ur Leukocyte Esterase (Negative) Urine Test NEGATIVE (NEGATIVE) Urine Opiates Screen Not Detected (Not Detect) Urine Fentanyl Screen Not Detected (Not Detect) Ur Barbiturates Screen Not Detected (Not Detect) Ur Phencyclidine Scrn Not Detected (Not Detect) Ur Amphetamines Screen Not Detected (Not Detect) U Benzodiazepines Scrn Not Detected (Not Detect) Urine Cocaine Screen Not Detected (Not Detect) U Marijuana (THC) Screen Not Detected (Not Detect) Ethyl Alcohol mg/dL 02/09/23 02/09/23 02/09/23 Range/Units 12:36 12:36 12:53 WBC RBC Hgb Hct MCV MCH MCHC RDW Plt Count MPV Immature Gran % (Auto) Neut % (Auto) Lymph % (Auto) [place] % (Auto) Eos % (Auto) Baso % (Auto) Lymph # (Auto) [place] # (Auto) Eos # (Auto) Baso # (Auto) Abs Immat Gran (auto) Absolute Neuts (auto) Absolute Nucleated RBC Nucleated RBC % (auto) Sodium 139 (135-145) mmol/L Potassium 4.5 (3.3-5.1) mmol/L Chloride 106 (96-108) mmol/L Carbon Dioxide 24 (22-29) mmol/L Anion Gap 14 (12-20) BUN 11 (9-16) mg/dL Creatinine 0.71 (0.5-1.4) mg/dL Estim Creat Clear Calc 113.6 Estimated GFR > 60 POC Glucose 87 (60-115) mg/dL Random Glucose 90 (60-115) mg/dL Calcium 9.7 D (8.4-10.2) mg/dL Iron 758 H (30-160) mcg/dL TIBC 903 H (228-428) mcg/dL % Saturation 84 H (15-50) % Unsat Iron Binding 145 ug/dL Total Bilirubin 0.5 (0.0-1.0) mg/dL AST 42 H (5-31) U/L ALT 35 H (0-31) U/L Alkaline Phosphatase 124 H (39-117) U/L Total Protein 7.9 (6.5-8.0) g/dL Albumin 3.9 (3.5-5.0) g/dL Urine Color Yellow Urine Appearance Clear Urine pH 7.5 (5.0-9.0) Ur Specific [place] <= 1.005 (1.005-1.025) Urine Protein Negative (Neg-Trace) mg/dL Urine Glucose (UA) Negative (Negative) mg/dL Urine Ketones Negative (Negative) mg/dL Urine Blood Negative (Negative) Urine Nitrite Negative (Negative) Ur Leukocyte Esterase Negative (Negative) Urine Test (NEGATIVE) Urine Opiates Screen (Not Detect) Urine Fentanyl Screen (Not Detect) Ur Barbiturates Screen (Not Detect) Ur Phencyclidine Scrn (Not Detect) Ur Amphetamines Screen (Not Detect) U Benzodiazepines Scrn (Not Detect) Urine Cocaine Screen (Not Detect) U Marijuana (THC) Screen (Not Detect) Ethyl Alcohol < 10 mg/dL Discharge Plan Discharge Clinical Impression: Adverse drug reaction Patient Disposition: Home, Self-Care Additional Instructions: You experienced an adverse drug reaction to the Venofer (iron sucrose). You appear to be high/intoxicated-your speech was slurred and you had generalized weakness. You should not receive another transfusion of this medication until you follow-up with Dr. Cisneros and discussed the adverse reaction with her. Your urine drug screen was negative for opiates and fentanyl. Your blood alcohol level was below detectable limits. Your blood chemistries were otherwise normal including a normal blood glucose ( sugar) level Follow-up with your Dr. Cisneros within 1 week. Please return to the emergency department if your symptoms get worse or if you develop any symptoms that are concerning to you. Prescriptions: No Action magnesium Tablet 500 tab PO DAILY melatonin 5 mg Tablet,Chewable 5 mg PO BEDTIME PRN (Reason: Sleep) levothyroxine 125 mcg tablet 125 mcg PO DAILY Interventions: ED Discharge Assessment Last Done: 02/09/23 15:20 Discharge Date/Time: 02/09/23 15:21
== END 2023-02-09 15:21 | disposition home or self-care (01) ==
PROVIDERS: Emergency Provider Emergency Medicine Emergency Medical Services; PCP Nurse Practitioner Family
DX: R41.82 Altered mental status, unspecified (principal); R47.81 Slurred speech; M62.81 Muscle weakness (generalized); T45.4X5A Adverse effect of iron and its compounds, initial encounter; Y92.538 Other ambulatory health services establishments as the place of occurrence of the external cause; D50.9 Iron deficiency anemia, unspecified; Z79.899 Other long term (current) drug therapy
CPT/HCPCS: 36415; 80053; 80307; 81003; 81025; 82947; 83540; 85025; 93005; 99283; 99284

== ENCOUNTER 2024-11-01 08:28 | Emergency (ER) | payer OTHER, SELFPAY ==
[2024-11-01] VITALS (9 sets, daily range): BP systolic 90–122; BP diastolic 58–88; PULSE 58–141; RESP 12–29; TEMP 37–37.1; O2SAT 96–100; BMI 31.8
--- NOTE | ~2024-11-01 | XR_ITS ---
EXAMINATION: XR CHEST CLINICAL INFORMATION: cp COMPARISON: August 28, 2021. TECHNIQUE: Frontal view of the chest was obtained. FINDINGS: Patchy opacity in the right lower hemithorax. No pleural effusion. No pneumothorax. Cardiomediastinal silhouette size is normal. Mild multilevel thoracic spondylosis. XR/XR chest 1V IMPRESSION: Concerning acute airspace disease, right lower lung lobe. Electronically signed by: Armando Elizabeth MD 11/01/2024 09:34 AM EDT
--- NOTE | 2024-11-01 08:39 | ECG_ITS ---
Test Reason : palpitations Blood Pressure : */* mmHG Vent. Rate : 98 BPM Atrial Rate : * BPM P-R Int : * ms QRS Dur : 76 ms QT Int : 360 ms P-R-T Axes : * -12 12 degrees QTcB Int : 459 ms Atrial fibrillation Abnormal ECG When compared with ECG of 09-Feb-2023 12:52, Atrial fibrillation has replaced Sinus rhythm Vent. rate has increased by 42 bpm Referred By: Suki Tinoco Electronically Signed By: TERRI HOSKINS MD
--- NOTE | 2024-11-01 08:41 | ECG_ITS ---
Test Reason : rithym change Blood Pressure : */* mmHG Vent. Rate : 59 BPM Atrial Rate : * BPM P-R Int : * ms QRS Dur : 72 ms QT Int : 432 ms P-R-T Axes : * -12 0 degrees QTcB Int : 427 ms Atrial fibrillation with slow ventricular response Abnormal ECG When compared with ECG of 01-Nov-2024 08:49, Vent. rate has decreased by 39 bpm Referred By: Suki Tinoco Electronically Signed By: TERRI HOSKINS MD
--- NOTE | 2024-11-01 08:53 | ED_ITS ---
HPI - Arrhythmia/Palpitations General Chief Complaint: Arrhythmia/Palpitations Stated Complaint: S/O PALPITATIONS+LIGHTHEADEDNESS,AFIB PER EMS Time Seen by Provider: 11/01/24 08:44 History of Present Illness HPI narrative: Patient is a 44-year-old female with a history of thyroid problems previous history of atrial fibrillation. Currently not on blood thinners. Presented today with having palpitation weakness generalized malaise. Patient had atrial fibrillation while she was having COVID also was taking pseudoephedrine at that time. Patient has since then has not been in atrial fibrillation had a monitoring device done. Patient is from home. No no chills. No chest pain or diaphoresis. But does feel somewhat lightheaded very weak has palpitation that is why she came to the ED. denies any blood in the stool. Denies any traveling history. Denies any leg swelling. She is from home. Does not think she is . No changes in sleep pattern she has been compliant with her thyroid medications. Related Data Home Medications ?Medication ?Instructions ?Recorded ?Confirmed levothyroxine 125 mcg tablet 125 mcg PO DAILY 10/01/21 06/05/23 magnesium 500 tab PO DAILY 01/21/23 06/05/23 melatonin 5 mg chewable tablet 5 mg PO BEDTIME PRN Sleep 01/21/23 06/05/23 Previous Rx's ?Medication ?Instructions ?Recorded ferrous sulfate 325 mg (65 mg 325 mg PO BID #60 tabs 02/18/23 iron) tablet (iron) diltiazem HCl 120 mg 120 mg PO DAILY #30 caps 11/01/24 capsule,extended release 24 hr (Cardizem CD) rivaroxaban 20 mg tablet (Xarelto) 20 mg PO DAILY 30 days #30 tabs 11/01/24 Allergies Allergy/AdvReac Type Severity Reaction Status Date / Time aspirin [ASPIRIN] Allergy Unknown HIVES Verified 11/01/24 08:51 shellfish derived Allergy Anaphylaxis Verified 11/01/24 08:51 iron [From Venofer] AdvReac Unresponsiv Verified 11/01/24 08:51 e PMFSH Past Medical History Medical History Paroxysmal atrial fibrillation Uterine polyp Pneumonia due to COVID-19 virus COVID-19 Vitamin D deficiency Infertility Hepatic steatosis Hypothyroidism Iron deficiency anemia Surgical History Hx of biopsy Family History Family History Father Murder Mother Cardiovascular system problem Social History Social History Alcohol intake: never Patient Tobacco Use Status: Never used Tobacco Advance Directives: No Advance Directives Information Provided: Yes service: No Current occupational status: employed 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 Physical Exam 2 Vital Signs: Vital Signs: Last Vital Signs Temp 98.7 F 11/01/24 13:18 Pulse 66 11/01/24 13:56 Resp 13 11/01/24 13:18 BP 102/61 11/01/24 13:56 Pulse Ox 96 11/01/24 13:18 O2 Del Method Room Air 11/01/24 13:18 BMI result Body Mass Index 31.8 Medications Administered Discontinued Medications Generic Name Dose Route Start Last Admin Trade Name Freq PRN Reason Stop Dose Admin Diltiazem HCl 25 mg 11/01/24 09:20 11/01/24 09:32 Diltiazem Hcl 50 Mg/10 Ml Vial IVPUSH 11/01/24 09:21 25 mg STAT STA Administration Diltiazem HCl 120 mg 11/01/24 13:37 11/01/24 13:56 Diltiazem Hcl Cd 120 Mg Cap.Er.Deg PO 11/01/24 13:38 120 mg ONCE ONE Administration Protocol Flecainide Acetate 150 mg 11/01/24 11:06 11/01/24 13:18 Flecainide Acetate 50 Mg Tablet PO 11/01/24 11:07 150 mg ONCE ONE Administration Sodium Chloride 1,000 mls @ 999 mls/hr 11/01/24 08:45 11/01/24 12:01 Ns IV 11/01/24 09:45 Infused .Q1H1M KAROLINE Infusion Rivaroxaban 20 mg 11/01/24 13:37 11/01/24 13:58 Rivaroxaban 20 Mg Tablet PO 11/01/24 13:38 20 mg ONCE ONE Administration Medical Decision Making Medical Decision Making MDM Narrative: Patient is a 44-year-old female with a history of atrial fibrillation in the past. Presented today with palpitation shortness of breath. On arrival in the ED patient's heart rate 140-100 my interpretation of patient's initial EKG shows an atrial fibrillation pattern heart rate of about 100. Patient old record was reviewed. Had a previous history of the same. Had an echo done which showed a normal ejection fraction. Had atrial fibrillation about 3 years ago. Patient was given a dose of Cardizem with good results heart rate control at approximately 75. With a blood pressure that is about 100/50. Patient's case consulted with Cardiology. Cardiology noted patient symptoms started at approximately 08:00 this morning. Less than 48 hours. Okay with starting patient on flecainide x1 dose. Try to convert patient back into a sinus rhythm. The medication worked. Patient went into a sinus rhythm . My interpretation of patient's repeat EKG showed a sinus rhythm heart rate was 70 MT QRS QTC normal no acute ST segment elevation. Patient's blood pressure was good. Well- appearing symptom free. Patient's case discussed with cardiology and with patient. Feel comfortable about going home. Cardiology requested patient to be started on Xarelto. Patient will be started on 20 mg of Xarelto q.d.. Patient also started on Cardizem at the request of Cardiology at 120 mg daily. Currently in stable condition with discharge home Differential Diagnosis Differential Diagnoses: The differential diagnosis associated with the presentation includes Atrial fibrillation, atrial flutter, Admission/Observation Consideration of admission/observation: Escalation of care including admission/observation considered Consult Healthcare Provider Management of the patient was discussed with: Circular Saw Operator (cardiology) Lab Data MDM Lab Attestation statement: I reviewed the patient's lab results. 11/01/24 10:16 11/01/24 10:16 Labs: Lab Results 11/01/24 Range/Units 10:16 WBC 5.9 (4.8-10.8) X10*3/uL RBC 5.29 D (4.20-5.50) X10*6/uL Hgb 15.7 D (12.0-16.0) g/dl Hct 46.3 D (37.0-47.0) % MCV 87.5 (80.0-98.0) fL MCH 29.7 (27.0-33.0) pg MCHC 33.9 (31.0-35.0) g/dl RDW 12.1 (11.0-16.0) % Plt Count 205 (160-400) X10*3/uL MPV 10.3 (9.4-12.3) fL Immature Gran % (Auto) 0.2 (0.0-0.4) % Neut % (Auto) 63.1 (45-73) % Lymph % (Auto) 27.7 (20-40) % [place] % (Auto) 7.8 (2-11) % Eos % (Auto) 0.7 (0-4) % Baso % (Auto) 0.5 (0-2) % Lymph # (Auto) 1.6 (1.2-4.9) X10*3/uL [place] # (Auto) 0.5 (0.1-1.2) X10*3/uL Eos # (Auto) 0.0 (0.0-0.4) X10*3/uL Baso # (Auto) 0.0 (0.0-0.2) X10*3/uL Abs Immat Gran (auto) 0.01 (0.00-0.03) X10*3/uL Absolute Neuts (auto) 3.8 (2.0-8.3) x10*3/uL Absolute Nucleated RBC 0.000 (0.0-0.012) X10*3/uL Nucleated RBC % (auto) 0.0 (0.0-0.2) /100WBC Sodium 141 (135-145) mmol/L Potassium 3.6 (3.3-5.1) mmol/L Chloride 111 H (96-108) mmol/L Carbon Dioxide 23 (22-29) mmol/L Anion Gap 11 L (12-20) BUN 12 (9-16) mg/dL Creatinine 0.63 (0.5-1.4) mg/dL Estim Creat Clear Calc 126.9 Estimated GFR > 60 Random Glucose 89 (60-115) mg/dL Calcium 9.0 D (8.4-10.2) mg/dL Total Bilirubin 0.6 (0.0-1.0) mg/dL Direct Bilirubin 0.2 (0.0-0.5) mg/dL AST 32 H (5-31) U/L ALT 35 H (0-31) U/L Alkaline Phosphatase 94 (39-117) U/L Troponin I High Sens < 2.7 (<3.5-17.0) ng/L Total Protein 8.0 (6.5-8.0) g/dL Albumin 4.1 (3.5-5.0) g/dL TSH 0.53 (0.32-4.0) uIU/mL Beta HCG, Quant < 2 mIU/mL Urine Color Yellow Urine Appearance Clear Urine pH 8.0 (5.0-9.0) Ur Specific [place] <= 1.005 (1.005-1.025) Urine Protein Negative (Neg-Trace) mg/dL Urine Glucose (UA) Negative (Negative) mg/dL Urine Ketones 15 (Negative) mg/dL Urine Blood Negative (Negative) Urine Nitrite Negative (Negative) Ur Leukocyte Esterase Negative (Negative) Urine RBC 0-2 (0-2) /HPF Urine WBC 0-5 (0-5) /HPF Ur Squamous Epith Cells 0-2 (0-2) /HPF Urine Bacteria None Seen (None Seen) Hyaline Casts 0-2 (0-2) /LPF Ethyl Alcohol < 10 mg/dL Critical Care Time Critical Care Time Critical Care Time: Yes Total Critical Care Time: 40 Attestation: I have personally provided 40 minutes of critical care time exclusive of time spent on separately billable procedures. ?Time includes review of lab data, radiology results, discussion with consultants, and monitoring for potential decompensation. ?Interventions were performed as documented above Discharge Plan Discharge Clinical Impression: Atrial fibrillation Patient Disposition: Home, Self-Care Instructions: A-fib (Atrial Fibrillation) (DC) Prescriptions: New diltiazem HCl [Cardizem CD] 120 mg capsule,extended release 24hr 120 mg PO DAILY Qty: 30 0RF Xarelto 20 mg tablet 20 mg PO DAILY 30 Days Qty: 30 0RF Rx Instructions: must administer with evening meal No Action magnesium Tablet 500 tab PO DAILY melatonin 5 mg Tablet,Chewable 5 mg PO BEDTIME PRN (Reason: Sleep) ferrous sulfate [iron] 325 mg (65 mg iron) Tablet 325 mg PO BID Qty: 60 2RF levothyroxine 125 mcg tablet 125 mcg PO DAILY Print Language: Slovenian
[2024-11-01] MEDS: 0.9 % Sodium Chloride 1,000 ML 999 ML IV (09:30)
[2024-11-01] MEDS: dilTIAZem HCL 50 MG/10 ML VIAL 25 MG IVPUSH (09:32)
--- NOTE | 2024-11-01 09:48 | ECG_ITS ---
Test Reason : repeat Blood Pressure : */* mmHG Vent. Rate : 64 BPM Atrial Rate : 64 BPM P-R Int : 186 ms QRS Dur : 76 ms QT Int : 422 ms P-R-T Axes : 13 -10 17 degrees QTcB Int : 435 ms Normal sinus rhythm Normal ECG When compared with ECG of 01-Nov-2024 09:54, Sinus rhythm has replaced Atrial fibrillation Referred By: Suki Tinoco Electronically Signed By: TERRI HOSKINS MD
[2024-11-01 10:26] LABS: MANUAL DIFF FLAG NO
[2024-11-01 10:28] LABS: Appearance Urine Clear; Color Urine Yellow; Glucose Urine UA Negative (Negative); Leukocyte Esterase Urine Negative (Negative); Nitrite Urine Negative (Negative); Specific Gravity - Urine <= 1.005 (1.005-1.025); Urine Blood Negative (Negative); Urine Ketones 15 mg/dL (Negative); Urine Protein Negative (Neg-Trace)
[2024-11-01 10:29] LABS: Basophils Percent Auto 0.5 % (0-2); Eosinophils Percent Auto 0.7 % (0-4); Hematocrit 46.3 % (37.0-47.0); Hemoglobin 15.7 g/dl (12.0-16.0); Imm Gran Abs Auto 0.01 X10*3/uL (0.00-0.03); Imm Gran Pct Auto 0.2 % (0.0-0.4); Lymphocytes Absolute Auto 1.6 X10*3/uL (1.2-4.9); Lymphocytes Percent Auto 27.7 % (20-40); Mean Corpuscular HGB Conc 33.9 g/dl (31.0-35.0); Mean Corpuscular Hemoglobin 29.7 pg (27.0-33.0); Mean Corpuscular Volume 87.5 fL (80.0-98.0); Mean Platelet Volume 10.3 fL (9.4-12.3); Monocytes Absolute Auto 0.5 X10*3/uL (0.1-1.2); Monocytes Percent Auto 7.8 % (2-11); Neutrophils Absolute Auto 3.8 x10*3/uL (2.0-8.3); Neutrophils Percent Auto 63.1 % (45-73); Platelet Count 205 X10*3/uL (160-400); Red Blood Count 5.29 X10*6/uL (4.20-5.50); Red Cell Distribution Width 12.1 % (11.0-16.0); White Blood Count 5.9 X10*3/uL (4.8-10.8)
[2024-11-01 10:35] LABS: Bacteria Urine None Seen (None Seen); Hyaline Casts Urine 0-2 /LPF (0-2); RBC Urine 0-2 /HPF (0-2); Squamous Epithelial Cell Urine 0-2 /HPF (0-2); WBC Urine 0-5 /HPF (0-5)
[2024-11-01 10:48] LABS: Ethanol < 10 mg/dL
[2024-11-01 10:53] LABS: HCG Quantitative < 2 mIU/mL
[2024-11-01 11:02] LABS: Alanine Aminotransferase 35 U/L (0-31); Albumin Level 4.1 g/dL (3.5-5.0); Alkaline Phosphatase 94 U/L (39-117); Anion Gap 11 (12-20); Aspartate Amino Transferase 32 U/L (5-31); Bilirubin Direct 0.2 mg/dL (0.0-0.5); Bilirubin Total 0.6 mg/dL (0.0-1.0); Blood Urea Nitrogen 12 mg/dL (9-16); Carbon Dioxide 23 mmol/L (22-29); Chloride 111 mmol/L (96-108); Creatinine Clr Calc Pharmacy 126.9; Estimated Glomerular Filt Rate > 60; Glucose Random 89 mg/dL (60-115); Potassium 3.6 mmol/L (3.3-5.1); Sodium 141 mmol/L (135-145); Troponin-I High Sensitivity < 2.7 ng/L (<3.5-17.0)
[2024-11-01 11:16] LABS: TSH reflex Free T4 0.53 uIU/mL (0.32-4.0)
--- NOTE | 2024-11-01 11:44 | P.CONCA_ITS ---
History of Present Illness History of Present Illness Date of Service: 11/01/24 Requesting physician: Suki Tinoco Consult reason: atrial fibrillation Chief complaint: S/O PALPITATIONS+LIGHTHEADEDNESS,AFIB PER EMS Narrative: I was consulted to see Betsy in cardiology consultation urgently for recurrent atrial fibrillation. Patient was well known to me with prior history of atrial fibrillation in the setting of COVID at which time she was paroxysmal and managed with short term anticoagulation and subsequently had had no recurrence. She was doing extremely well until recently she started noticing palpitation which started was panic attacks. She says she has high stress in his life, currently working 2 full-time jobs and going to some personal issues. She has been having these episodes that last for short period time. Today she woke up at around 08:00 somebody came home and start old her. She then started having symptoms of palpitation and irregular heartbeat and felt like she was in panic attack and then she subsequently started feeling lightheaded felt like she was going to pass out. She therefore called the ambulance and came to the emergency room. In the emergency room she was noted to be in atrial fibrillation.. Currently not on any medications at home. Overall doing well. She says she has been active and functional and has no recent new systemic symptoms. No exertional chest pain or shortness of breath. No heart failure symptoms. Prior cardiac workup has been within normal limits. A blood pressure is on the softer side. She was given rate control medication in the ED and heart rate has improved. She was little anxious Review of Systems 2 Constitutional: Constitutional: Reports no additional constitutional complaints Eyes: Eyes: Reports no additional eye complaints Cardiovascular: Cardiovascular: Denies chest pain, Denies chest pain with activity, Denies leg edema, Reports lightheadedness, Denies Loss of Consciousness, Reports palpitations and Denies dyspnea Respiratory: Respiratory: Reports no additional respiratory complaints and Denies dyspnea Gastrointestinal: Gastrointestinal: Reports no additional gastrointestinal complaints Genitourinary: Genitourinary: Reports no additional female genitourinary complaints Musculoskeletal: Musculoskeletal: Reports no additional musculoskeletal complaints Integumentary/Breasts: Skin/Breast: Reports system reviewed and no additional complaints, except as docu Neurologic: Reports system reviewed and no additional complaints, except as documented Psychiatric: Psychiatric: Reports no additional psychiatric complaints Endocrine: Endocrine: Reports no additional endocrine complaints and Reports palpitations PMFSH Past Medical History Medical History Paroxysmal atrial fibrillation Uterine polyp Pneumonia due to COVID-19 virus COVID-19 Vitamin D deficiency Infertility Hepatic steatosis Hypothyroidism Iron deficiency anemia Family History Family History Father Murder Mother Cardiovascular system problem Surgical History Surgical History Hx of biopsy Social History Social History Alcohol intake: never Patient Tobacco Use Status: Never used Tobacco Advance Directives: No Advance Directives Information Provided: Yes service: No Current occupational status: employed 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 Meds Allergies Allergy/AdvReac Type Severity Reaction Status Date / Time aspirin [ASPIRIN] Allergy Unknown HIVES Verified 11/01/24 08:51 shellfish derived Allergy Anaphylaxis Verified 11/01/24 08:51 iron [From Venofer] AdvReac Unresponsiv Verified 11/01/24 08:51 e Home Medications ?Medication ?Instructions ?Recorded ?Confirmed ?Last Taken ?Type levothyroxine 125 mcg tablet 125 mcg PO DAILY 10/01/21 06/05/23 Unknown History magnesium 500 tab PO DAILY 01/21/23 06/05/23 Unknown History melatonin 5 mg chewable tablet 5 mg PO BEDTIME PRN Sleep 01/21/23 06/05/23 Unknown History Physical Exam 2 Vital Signs: Vital Signs: Last Vital Signs Temp 98.6 F 11/01/24 08:47 Pulse 78 11/01/24 10:42 Resp 12 11/01/24 10:42 BP 99/60 11/01/24 10:42 Pulse Ox 99 11/01/24 10:42 O2 Del Method Room Air 11/01/24 10:42 BMI result Body Mass Index 31.8 Const: General: cooperative, comfortable, no acute distress, well developed, alert, awake, Physically active and anxious Nutritional Appearance: well nourished and overweight Orientation/consciousness: patient oriented x3 L imitations: no limitations HEENT: Head: Yes normocephalic and Yes atraumatic Neck: Neck: Yes trachea midline, Yes supple and Yes no JVD Resp: Effort & Inspection: normal respiratory effort Auscultation: clear to auscultation bilaterally Cardio: Jugular venous distension: no JVD Rhythm: abnormal rhythm irregularly irregular Heart sounds: S1 normal heart sound present, S2 normal heart sound present, no click, no gallops, no murmurs and no rubs GI: Auscultation: normal bowel sounds Skin: General skin exam: no rashes or lesions noted Neuro: General: patient oriented x3 and no focal motor deficits Extrem: General: Yes no clubbing, cyanosis or edema Psych: Appearance: grossly normal Objective Labs and Meds 11/01/24 10:16 11/01/24 10:16 Lab results: Laboratory Results - last 24 hr 11/01/24 10:16 WBC 5.9 RBC 5.29 D Hgb 15.7 D Hct 46.3 D MCV 87.5 MCH 29.7 MCHC 33.9 RDW 12.1 Plt Count 205 MPV 10.3 Immature Gran % (Auto) 0.2 Neut % (Auto) 63.1 Lymph % (Auto) 27.7 [place] % (Auto) 7.8 Eos % (Auto) 0.7 Baso % (Auto) 0.5 Lymph # (Auto) 1.6 [place] # (Auto) 0.5 Eos # (Auto) 0.0 Baso # (Auto) 0.0 Abs Immat Gran (auto) 0.01 Absolute Neuts (auto) 3.8 Absolute Nucleated RBC 0.000 Nucleated RBC % (auto) 0.0 Sodium 141 Potassium 3.6 Chloride 111 H Carbon Dioxide 23 Anion Gap 11 L BUN 12 Creatinine 0.63 Estim Creat Clear Calc 126.9 Estimated GFR > 60 Random Glucose 89 Calcium 9.0 D Total Bilirubin 0.6 Direct Bilirubin 0.2 AST 32 H ALT 35 H Alkaline Phosphatase 94 Troponin I High Sens < 2.7 Total Protein 8.0 Albumin 4.1 TSH 0.53 Beta HCG, Quant < 2 Urine Color Yellow Urine Appearance Clear Urine pH 8.0 Ur Specific [place] <= 1.005 Urine Protein Negative Urine Glucose (UA) Negative Urine Ketones 15 Urine Blood Negative Urine Nitrite Negative Ur Leukocyte Esterase Negative Urine RBC 0-2 Urine WBC 0-5 Ur Squamous Epith Cells 0-2 Urine Bacteria None Seen Hyaline Casts 0-2 Ethyl Alcohol < 10 Imaging Radiologist's impression: Impressions Chest X-Ray 11/01/24 08:41 IMPRESSION: Concerning acute airspace disease, right lower lung lobe. Electronically signed by: Armando Elizabeth MD 11/01/2024 09:34 AM EDT RP Assessment and Plan (1) Atrial fibrillation with rapid ventricular response: Status: Resolved Patient present with highly symptomatic recurrent atrial fibrillation flutter. She says she has been having recently self-limiting symptoms over the last several months which she felt were panic attacks. Today is her symptoms were most severe associated lightheadedness and did not go away and persisted. She came to the Emergency was noted to be in atrial fibrillation. Rate is better controlled. Given the onset of atrial fibrillation in the last 4 hours I think she will she would best be served by rhythm control. Give a flecainide 150 mg p.o. x1. She had already been given rate control medications. If she does not convert within an hour I would give her another dose of 150 mg flecainide to chemically cardiovert her. If she fails that may require synchronized cardioversion. Also start her on Xarelto 20 mg daily for at least a month. Discussed management with her in details. Will need workup as outpatient including Holter and echo. We discussed about rhythm management in details. She understands agrees. Will follow with you Procedures Date of Service Date of Service: 11/01/24
[2024-11-01] MEDS: Flecainide Acetate 50 MG TABLET 150 MG PO (13:18)
[2024-11-01] MEDS: dilTIAZem HCL CD 120 MG CAP.ER.DEG PO (13:56)
[2024-11-01] MEDS: Rivaroxaban 20 MG TABLET PO (13:58)
== END 2024-11-01 14:22 | disposition home or self-care (01) ==
PROVIDERS: Emergency Provider Emergency Medicine Emergency Medical Services; PCP Nurse Practitioner Family
DX: I48.91 Unspecified atrial fibrillation (principal); R00.2 Palpitations; R07.9 Chest pain, unspecified; R06.02 Shortness of breath; E03.9 Hypothyroidism, unspecified; Z79.899 Other long term (current) drug therapy
CPT/HCPCS: 36415; 71045; 80048; 80076; 80307; 81001; 84443; 84484; 84702; 85025; 93005; 96361; 96374; 99284

== ENCOUNTER → 2024-11-01 08:41 | Outpatient (BNV) | payer OTHER, SELFPAY | PROVIDERS: Emergency Provider Emergency Medicine Emergency Medical Services; PCP Nurse Practitioner Family; Visit Provider Radiology Diagnostic Radiology | DX: R07.9 Chest pain, unspecified (principal) | CPT/HCPCS: 71045 ==

== ENCOUNTER → 2024-11-01 09:17 | Outpatient (BNV) | payer OTHER, SELFPAY | PROVIDERS: Emergency Provider Emergency Medicine Emergency Medical Services; PCP Nurse Practitioner Family; Visit Provider Internal Medicine Cardiovascular Disease | DX: I48.91 Unspecified atrial fibrillation (principal) | CPT/HCPCS: 93010; 99284 ==

== ENCOUNTER → 2024-11-24 08:14 | Outpatient (REF) | payer OTHER, SELFPAY ==
--- NOTE | 2024-11-24 08:22 | CA_ITS ---
Transthoracic Echocardiogram Patient (Last, First, Middle): Betsy Sorensen, Gender: Female Date of : 1980 Age: 44 Procedure Date: 11/24/2024 Procedure Type: Transthoracic Echocardiogram Location: OP Height: 167.64 cm Weight: 86.18 kg BSA: 1.96 m2 Heart Rate: bpm BP: 100 / 62 mmHg Analytical Laboratory Technician: AMY Referring MD: Maykel Garcia MD Rabbet Operator: Maykel Garcia MD Symptoms: I48.91 - Unspecified atrial fibrillation Study Quality: Fair, contrast ECG Rhythm: Sinus Conclusions: - Essentially normal study Findings Procedure Information Contrast agent, definity, is being given per protocol without apparent complications. Left Ventricle Normal left ventricular size, thickness, and systolic function. The visually estimated ejection fraction is between 65-70%. Diastolic function is normal for age. Right Ventricle Normal right ventricular cavity size and systolic function. Atria The left atrium is normal in size. Interatrial shunt cannot be excluded. The right atrium is normal in size. Aortic Valve Normal aortic valve structure and function. There is no aortic valve stenosis. There is no aortic valve regurgitation. Mitral Valve Normal mitral valve structure and function. There is trace mitral valve regurgitation. There is no mitral valve stenosis. Pulmonic Valve The pulmonic valve was not well visualized. Tricuspid Valve Likely normal tricuspid valve structure and function. Tricuspid regurgitation envelope is inadequate for calculation of right ventricular systolic pressure. Normal right atrial pressure. Great Vessels All visible segments of the aorta are normal in size. The pulmonary artery was not well visualized. There is no dilatation of the ascending aorta measuring 2.80 cm. Venous The inferior vena cava is normal in size and collapses greater than 50% with inspiration. Pericardium/Pleural There is no evidence of pericardial effusion. Measurements 2D Linear Measurements IVSd: 0.77 0.6-0.9/0.6-1.0 cm LVIDd: 4.56 3.9-5.3/4.2-5.9 cm LVIDd Index: 2.33 2.4-3.2/2.2-3.1 cm/m2 LVIDs: 3.18 2.0-3.6 cm LVPWd: 0.86 0.7-1.1 cm LA Diam: 3.80 2.7-3.8/3.0-4.0 cm LAIDs Index: 1.94 1.5-2.3 cm/m2 LV Mass: 147.93 67-162/88-224 g LV Mass Index: 75.48 43-95/49-115 g/m2 LVOT Diam: 2.20 3.0+(-)1.3 cm 2D Systolic Function EF 4C: 69.70 >55% EF 2C: 65.10 >55% EF BiP: 68.50 >55% Mitral Valve MV Pk E: 0.81 MV PK A: 0.33 MV Decel Time: 287.00 E/A: 2.40 E'Lateral: 11.60 E'Medial: 8.92 E/E' Med: 9.00 E/E' Lat: 6.90 PHT: 84.00 MVA PHT: 2.62 Decel Humphreys: 2.81 Aortic Valve AoV Pk Javon: 1.27 AoV Mn Javon: 0.96 AoV VTI: 0.32 AoV Pk Grad: 6.00 Aov Mn Grad: 4.00 BERYL Cont.VTI: 2.63 LVOT LVOT Pk Javon: 1.00 LVOT Mn Javon: 0.66 LVOT VTI: 0.22 LVOT Pk Grad: 4.00 LVOT Mn Grad: 2.00 LVOT Diam: 2.20 LVOT Area: 3.80 Diastolic Function MV Pk E: 0.81 MV Pk A: 0.33 E/A: 2.40 E'Medial: 8.92 E/E' Med: 9.00 E' Laterial: 11.60 E/E' Lat: 6.90 Right Ventricle TAPSE (mm): 20.70 TVS' Javon: 9.57 Tricuspid Valve TR Pk Javon: 1.68 TR Pk Grad: 11.00 Great Vessels Aorta Sinus of Valsalva: 3.08 2.0-3.[address] [place]: 2.45 1.7-3.4 cm Ao Asc: 2.80 2.1-3.4 cm Updated in Other Vendor System with Status of Final Maykel Garcia MD electronically signed on 11/25/2024 1:06:09 PM with status of Final
== END ==
LOC: HO.CARD 08:14
PROVIDERS: PCP Nurse Practitioner Family; Visit Provider Internal Medicine Cardiovascular Disease
DX: I48.91 Unspecified atrial fibrillation (principal); R00.1 Bradycardia, unspecified
CPT/HCPCS: 93242; 93306; Q9957

== ENCOUNTER → 2024-11-24 08:22 | Outpatient (BNV) | payer OTHER, SELFPAY | PROVIDERS: PCP Nurse Practitioner Family; Visit Provider Internal Medicine Cardiovascular Disease | DX: I48.91 Unspecified atrial fibrillation (principal) | CPT/HCPCS: 93306 ==

== ENCOUNTER 2024-12-13 15:30 | Outpatient (AMB) | payer OTHER, SELFPAY ==
--- NOTE | 2024-12-13 15:36 | A.OFFVIS_ITS ---
Vital Signs 12/13/24 15:37 Height 5 ft 6 in Weight 189 lb 9.561 oz BMI 30.6 BP 110/70 Blood Pressure Location Lt brachial Position Sitting Pulse 71 Intake Visit Reasons: C dc with ekg dx afib Int[place] Note: [facility] [place]ib Holter was just shipped back no results yet feeling ok Transportation Lead Required: No Allergies aspirin [ASPIRIN] Allergy (Unknown, Verified 11/01/24 08:51) HIVES shellfish derived Allergy (Verified 11/01/24 08:51) Anaphylaxis iron [From Venofer] Adverse Reaction (Verified 11/01/24 08:51) Unresponsive Medication List - Last Reviewed 12/13/24 by JUAN Edwards levothyroxine 125 mcg PO DAILY melatonin 5 mg PO BEDTIME PRN semaglutide (weight loss) (Wegovy) 0.5 mg subcut QWEEK HPI Comments Details: Betsy comes for follow-up after her ED presentation October with recurrent atrial fibrillation which was highly symptomatic. She said she had lot of stress at that point time and realize that that might be the reason for her trigger. She was then given Cardizem with rate control and subsequently flecainide with controlled and conversion to sinus rhythm. She was given Xarelto for about a month and she is currently off Xarelto. She has done well. She is currently on a weight loss Wegovy and has lost about 15 lb. She feels a lot better. Says his symptoms of knee pain and shortness of breath have improved with weight loss. She is very motivated to continue to lose weight. She has not had any recurrent episodes of atrial fibrillation. Echocardiogram done post ED presentation showed normal study. Holter monitor results are pending. 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 Review of Systems Const Denies chills, Denies fatigue, Denies fever(s), Denies frequent falls, Denies weakness, Denies weight gain and Denies weight loss ENT Denies dizziness Card Denies chest pain, Denies leg edema, Denies lightheadedness, Denies palpitations, Denies dyspnea, Denies dyspnea on exertion, Denies orthopnea and Denies other (loss of consciousness) Resp Denies cough, Denies dyspnea and Denies dyspnea on exertion GI Denies hematochezia and Denies change in stool character Musc Denies abnormal gait, Denies muscle weakness, Denies numbness, Denies radiating pain into limb and Denies tingling Neuro Denies abnormal gait, Denies dizziness, Denies frequent falls, Denies numbness, Denies tingling and Denies weakness Endo Denies fatigue and Denies palpitations Physical Exam Vital Signs: Last Vital Signs Pulse 71 12/13/24 15:37 BP 110/70 12/13/24 15:37 BMI result Body Mass Index 30.6 Const General: cooperative, comfortable, no acute distress, alert, awake, Physically active and well groomed Nutritional Appearance: overweight Orientation/consciousness: patient oriented x3 Limitations: no limitations Neck Neck: Yes trachea midline, Yes supple and Yes no JVD Resp Effort & Inspection: normal respiratory effort Auscultation: clear to auscultation bilaterally Cardio Jugular venous distension: no JVD Palpation: normal PMI Rate: regular rate Rhythm: regular rhythm Heart sounds: S1 normal heart sound present, S2 normal heart sound present, no click, no gallops, no murmurs and no rubs GI Auscultation: normal bowel sounds Skin General skin exam: no rashes or lesions noted Neuro General: patient oriented x3 and no focal motor deficits Extrem General: Yes no clubbing, cyanosis or edema Office Procedures EKG Details: EKG shows normal sinus rhythm with normal EKG [id number], Complete Assessment & Plan Assessment & Plan (1) Paroxysmal atrial fibrillation: Code(s): I48.0 - Paroxysmal atrial fibrillation Category: Medical Plan: Highly symptomatic paroxysmal atrial fibrillation with recent recurrence after 3 years related to most likely stress. This has not recurred. We discussed about management of atrial fibrillation. Will pursue pill in the pocket approach with metoprolol and flecainide at home if she has recurrent atrial fibrillation. She has tolerated flecainide well in the emergency room without any side effects. Does not require any oral anticoagulation therapy at this point time. Continue participate in weight loss program was discussed which has shown to reduce recurrence of atrial fibrillation. Avoidance of stimulants was discussed. Stress mitigation strategies were discussed. She understands and agrees. Advised to call me with any new symptoms. Will follow up in the clinic otherwise in 1 year's time. Coding Level of Care Code Est Pt Level 4 (38021) Complex EM visit Add On G2211 Diagnoses Paroxysmal atrial fibrillation I48.0 CPT Codes EKG - CPT: 60003-[id number], Complete ([id number])
[2024-12-13 15:37] VITALS: BP 110/70; PULSE 71; BMI 30.6
== END 2024-12-13 16:05 | disposition home or self-care (01) ==
LOC: HO.HCS 15:31
PROVIDERS: PCP Nurse Practitioner Family; Visit Provider Internal Medicine Cardiovascular Disease
DX: I48.0 Paroxysmal atrial fibrillation (principal)
CPT/HCPCS: 93010; 99214

== ENCOUNTER → 2024-12-13 15:30 | Outpatient (BNVA) | payer OTHER, SELFPAY | PROVIDERS: PCP Nurse Practitioner Family; Visit Provider Internal Medicine Cardiovascular Disease | DX: I48.0 Paroxysmal atrial fibrillation (principal) | CPT/HCPCS: 93005 ==

== ENCOUNTER 2025-04-02 01:19 | Emergency (ER) | payer OTHER, SELFPAY ==
--- NOTE | 2025-04-02 01:28 | ECG_ITS ---
Test Reason : AFIB Blood Pressure : */* mmHG Vent. Rate : 78 BPM Atrial Rate : * BPM P-R Int : * ms QRS Dur : 72 ms QT Int : 372 ms P-R-T Axes : * -18 -3 degrees QTcB Int : 424 ms Atrial fibrillation Abnormal ECG When compared with ECG of 01-Nov-2024 12:40, Atrial fibrillation has replaced Sinus rhythm Referred By: Generic ED Physician Electronically Signed By: VICK SMITH
[2025-04-02 01:34] VITALS: BP 110/56; PULSE 79; RESP 20; TEMP 36.3; O2SAT 100; BMI 27.8
[2025-04-02 02:08] LABS: MANUAL DIFF FLAG NO
[2025-04-02 02:09] LABS: Hematocrit 37.3 % (37.0-47.0); Hemoglobin 12.0 g/dl (12.0-16.0); Imm Gran Abs Auto 0.02 X10*3/uL (0.00-0.03); Imm Gran Pct Auto 0.2 % (0.0-0.4); Lymphocytes Absolute Auto 2.6 X10*3/uL (1.2-4.9); Mean Corpuscular HGB Conc 32.2 g/dl (31.0-35.0); Mean Corpuscular Hemoglobin 25.7 pg (27.0-33.0); Mean Corpuscular Volume 79.9 fL (80.0-98.0); NRBC Abs Auto 0.000 X10*3/uL (0.0-0.012); NRBC Pct Auto 0.0 /100WBC (0.0-0.2); Platelet Count 228 X10*3/uL (160-400); Red Blood Count 4.67 X10*6/uL (4.20-5.50); White Blood Count 11.3 X10*3/uL (4.8-10.8)
[2025-04-02 02:11] LABS: Appearance Urine Clear; Glucose Urine UA Negative (Negative); PH 7.0 (5.0-9.0); Specific Gravity - Urine 1.010 (1.005-1.025); UMIC TRIGGER UACC YES
[2025-04-02 02:12] LABS: UPreg QC Valid YES
[2025-04-02 02:16] LABS: UACC Culture Trigger YES
--- NOTE | 2025-04-02 02:25 | PC.NURSE ---
this rn assumed care of pt from triage. pt placed on enamel shader 20g iv placed labs obtained and sent to lab pt reports increased urinary frequency and burning upon urination. urine obtained and sent to lab awaiting to be seen by provider
[2025-04-02 02:34] LABS: Alanine Aminotransferase 25 U/L (0-31); Albumin Level 4.3 g/dL (3.5-5.0); Alkaline Phosphatase 133 U/L (39-117); Anion Gap 11 (12-20); Aspartate Amino Transferase 29 U/L (5-31); Blood Urea Nitrogen 11 mg/dL (9-16); Calcium 9.2 mg/dL (8.4-10.2); Carbon Dioxide 26 mmol/L (22-29); Chloride 108 mmol/L (96-108); Creatinine Clr Calc Pharmacy 106.9; Estimated Glomerular Filt Rate > 60; Potassium 3.8 mmol/L (3.3-5.1); Sodium 141 mmol/L (135-145); Total Protein 8.1 g/dL (6.5-8.0)
[2025-04-02 02:45] LABS: Troponin-I High Sensitivity < 2.7 ng/L (<3.5-17.0)
[2025-04-02 02:57] LABS: B Type Natriuretic Peptide 80 pg/mL (<100)
--- NOTE | 2025-04-02 03:01 | ED.ARRPALP ---
HPI - Arrhythmia/Palpitations General Chief Complaint: Arrhythmia/Palpitations Stated Complaint: Possible Afib Time Seen by Provider: 04/02/25 02:26 Source: patient Mode of arrival: ambulatory Limitations: no limitations History of Present Illness ED Provider: Dr. Jacque Barton HPI narrative: Patient comes to the emergency room complaining of atrial fibrillation. Patient states that in the past she has a AFib. However, since at least December she has been off medications because she has been in sinus rhythm. Patient follows up with Dr. Garcia from Cardiology. Patient was given p.r.n. medications metoprolol and flecainide PRN atrial fibrillation, patient no longer on Xarelto. Patient states that her AFib has been acting up for the last week intermittently. Patient states that she can tell when she is in atrial fibrillation because she feels very lightheaded especially when her heart rate is in the 150s to 170s per her Apple watch. Patient denies any syncopal episodes. Prior to arriving to the ED, patient took a dose of both metoprolol and flecainide, which helped to control the rate, however, patient is still having palpitations. Also, patient reporting dysuria for 3 days, no flank pain, unknown if she has hematuria, patient currently menstruating Related Data Home Medications ?Medication ?Instructions ?Recorded ?Confirmed levothyroxine 125 mcg tablet 125 mcg PO DAILY 10/01/21 12/13/24 melatonin 5 mg chewable tablet 5 mg PO BEDTIME PRN Sleep 01/21/23 12/13/24 semaglutide (weight loss) 0.5 0.5 mg subcut QWEEK 12/13/24 mg/0.5 mL subcutaneous pen injector (Bobbi) Previous Rx's ?Medication ?Instructions ?Recorded flecainide 50 mg tablet 150 mg (3 x 50 mg) PO ONCE PRN 12/13/24 atrial fibrillation #14 tabs metoprolol succinate 50 mg 50 mg PO DAILY PRN atrial 12/13/24 tablet,extended release 24 hr fibrillation #30 tabs (Toprol XL) flecainide 100 mg tablet 100 mg PO Q12H #60 tabs 04/02/25 metoprolol succinate 25 mg 25 mg PO DAILY #30 tabs 04/02/25 tablet,extended release 24 hr (Toprol XL) Allergies Allergy/AdvReac Type Severity Reaction Status Date / Time aspirin (ASPIRIN) Allergy Unknown HIVES Verified 04/02/25 01:36 shellfish derived Allergy Anaphylaxis Verified 04/02/25 01:36 iron (From Venofer) AdvReac Unresponsiv Verified 04/02/25 01:36 e Review of Systems Review of Systems: Constitutional : No Weight loss, No Fever, No Chills, No Night Sweats, No Fatigue, No Malaise ENT/Mouth : No Hearing loss, No Ear Pain, No Nasal Congestion, No Sinus Pain, No Hoarseness, No sore throat, No Rhinorrhea, No Swallowing Difficulty Eyes: No Eye Pain, No Swelling, No Redness, No Foreign Body, No Discharge, No Vision Changes Cardiovascular : No Chest Pain, No SOB, No Dyspnea on Exertion, No Orthopnea, No Edema, complaining of Palpitations and dizziness Respiratory : No Cough, No Sputum, No Wheezing, No Smoke Exposure, No Dyspnea Gastrointestinal : No Nausea, No Vomiting, No Diarrhea, No Constipation, No abdominal Pain, No Hematochezia, No Melena Genitourinary : Currently menstruating, patient complaining of dysuria, No Urinary Frequency, No Hematuria, No Urinary Incontinence, No Urgency, No Flank Pain, No Urinary Flow Changes, No Hesitancy Musculoskeletal : No joint pain, No Myalgias, No Joint Swelling Skin : No Skin Lesions, No rash Neuro : No Weakness, No Numbness, No Paresthesias, No Loss of Consciousness, complaining of dizziness Psych : No Anxiety/Panic, No Depression, No SI/HI/AH/VH, No Social Issues, Heme/Lymph: No Bruising, No Bleeding,No Lymphadenopathy Endocrine : No Polyuria, No Polydipsia, No Temperature Intolerance PMFSH Past Medical History Medical History Paroxysmal atrial fibrillation Uterine polyp Pneumonia due to COVID-19 virus COVID-19 Vitamin D deficiency Infertility Hepatic steatosis Hypothyroidism Iron deficiency anemia Surgical History Hx of biopsy Family History Family History Father Murder Mother Cardiovascular system problem Social History Social History Alcohol intake: never Patient Tobacco Use Status: Never used Tobacco Smoked in Last 30 Days: No Use of substances other than those prescribed or required for medical reasons: No Advance Directives: No Advance Directives Information Provided: No Patient : No service: No Current occupational status: employed 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 Physical Exam Exam: Exam: Appearance: Alert. Oriented X3. No acute distress. Eyes: Pupils equal, round and reactive to light. ENT: Pharynx normal. Neck: Normal inspection. Neck supple. No lymph nodes noted. No crepitus CVS: Heart rate irregularly irregular, rate control in the 70s, Pulses normal. Normal S1 and S2 Respiratory: No respiratory distress. Breath sounds normal. No Wheezing. No rales Abdomen: Soft and nontender. No rigidity. No distention. No CVA tenderness Skin: Skin warm and dry. Normal skin color. Normal skin turgor. Extremities: No lower extremity edema. No Lacerations. No Rash Neuro: Oriented X 3. No motor deficit. No sensory deficit. Moving all extremities. No slurred speech. CN 2 through 12 grossly intact Psych: calm, cooperative, normal affect Vital Signs: Vital Signs: Last Vital Signs Temp 97.3 F 04/02/25 01:34 Pulse 63 04/02/25 04:07 Resp 18 04/02/25 04:07 BP 101/57 L 04/02/25 04:07 Pulse Ox 100 04/02/25 01:34 O2 Del Method Room Air 04/02/25 01:34 BMI result Body Mass Index 27.8 Course Course Course Narrative: Patient complaining of intermittent palpitations and dizziness when heart rate is significantly elevated. Patient denies syncopal episodes. Patient is usually in sinus rhythm, for the last week patient has been in and out of AFib, patient is significantly symptomatic when she is in AFib. At this time, no chest pain or shortness of breath. 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 Although the rate is controlled, patient has a occasional palpitations. By the to arrival, patient took metoprolol and flecainide Discussed with the patient that we will give her a small amount of metoprolol here in the ED. patient's blood pressure is in the low 100s, so we do not have much room blood pressure verma to give medications. I discussed with the patient that if she does not respond to IV meds, we may have to keep her for possible cardioversion. Patient is not on blood thinners. Patient used to takes Xarelto. At this time, patient is requesting that we do not start Xarelto at this time because it makes her menstrual period very heavy. Medications Administered Discontinued Medications Generic Name Dose Route Start Last Admin Trade Name Freq PRN Reason Stop Dose Admin Ceftriaxone Sodium 1 gm 04/02/25 02:53 04/02/25 03:03 Ceftriaxone Sodium 1 Gm Vial IVPUSH 04/02/25 02:54 1 gm ONCE ONE Administration Sodium Chloride 1,000 mls @ 999 mls/hr 04/02/25 02:53 04/02/25 04:07 Ns IVCONT 04/02/25 03:53 Infused .Q1H1M ONE Infusion Metoprolol Tartrate 2.5 mg 04/02/25 02:53 04/02/25 03:03 Metoprolol Tartrate 5 Mg/5 Ml Vial IVPUSH 04/02/25 02:54 2.5 mg ONCE ONE Administration Protocol Medical Decision Making Medical Decision Making MDM Narrative: My interpretation of EKG 1: Atrial fibrillation, heart rate 78, no ST segment depression or elevation, no T-wave inversion, QTC 424 My interpretation of labs: Patient's white blood cell count 11.3, patient complaining of UTI symptoms. No significant abnormality in patient's electrolytes, troponin negative, BNP 80, no signs of CHF, TSH within normal limits at 0.32. Patient received a dose of 2.5 mg IV metoprolol. Initially, it seemed that did not do anything. However, a bit over an hour after the 1st dose, patient converted to sinus rhythm, currently heart rate 63, blood pressure 101/57, oxygen saturation 100% on room air. Patient states that she is no longer having any palpitations or discomfort, patient states that she feels completely back to normal. EKG 2.: Normal sinus rhythm, first-degree AV block, heart rate 62, no ST segment depression or elevation, nonspecific T-wave inversion in lead 3, QTC 434 I discussed the patient with Dr. Garcia from Cardiology, patient is to start flecainide 100 mg b.i.d. and Toprol 25 mg daily rather than PRN. Patient instructed to have a close follow-up with Dr. Garcia Patient agrees with plan Initially, it was planned to admit the patient, patient received a dose of IV ceftriaxone. We will switch her medication for UTI to p.o. cefuroxime. Patient agrees with plan. Differential Diagnosis Differential Diagnoses: The differential diagnosis associated with the presentation includes (Atrial fibrillation, atrial flutter, UTI) Admission/Observation Consideration of admission/observation: Escalation of care including admission/observation considered Consult Healthcare Provider Management of the patient was discussed with: Adoption Manager Lab Data [facility] Lab Attestation statement: I reviewed the patient's lab results. 04/02/25 02:01 04/02/25 02:01 Labs: Lab Results 04/02/25 Range/Units 02:01 WBC 11.3 H (4.8-10.8) X10*3/uL RBC 4.67 (4.20-5.50) X10*6/uL Hgb 12.0 D (12.0-16.0) g/dl Hct 37.3 (37.0-47.0) % MCV 79.9 L (80.0-98.0) fL MCH 25.7 L (27.0-33.0) pg MCHC 32.2 (31.0-35.0) g/dl RDW 13.8 (11.0-16.0) % Plt Count 228 (160-400) X10*3/uL MPV 10.1 (9.4-12.3) fL Immature Gran % (Auto) 0.2 (0.0-0.4) % Neut % (Auto) 66.2 (45-73) % Lymph % (Auto) 23.0 (20-40) % Hamilton % (Auto) 9.1 (2-11) % Eos % (Auto) 1.1 (0-4) % Baso % (Auto) 0.4 (0-2) % Lymph # (Auto) 2.6 (1.2-4.9) X10*3/uL Hamilton # (Auto) 1.0 (0.1-1.2) X10*3/uL Eos # (Auto) 0.1 (0.0-0.4) X10*3/uL Baso # (Auto) 0.0 (0.0-0.2) X10*3/uL Abs Immat Gran (auto) 0.02 (0.00-0.03) X10*3/uL Absolute Neuts (auto) 7.5 (2.0-8.3) x10*3/uL Absolute Nucleated RBC 0.000 (0.0-0.012) X10*3/uL Nucleated RBC % (auto) 0.0 (0.0-0.2) /100WBC Sodium 141 (135-145) mmol/L Potassium 3.8 (3.3-5.1) mmol/L Chloride 108 (96-108) mmol/L Carbon Dioxide 26 (22-29) mmol/L Anion Gap 11 L (12-20) BUN 11 (9-16) mg/dL Creatinine 0.70 (0.5-1.4) mg/dL Estim Creat Clear Calc 106.9 Estimated GFR > 60 Random Glucose 74 (60-115) mg/dL Calcium 9.2 (8.4-10.2) mg/dL Total Bilirubin 0.2 (0.0-1.0) mg/dL AST 29 (5-31) U/L ALT 25 (0-31) U/L Alkaline Phosphatase 133 H (39-117) U/L Troponin I High Sens < 2.7 (<3.5-17.0) ng/L B-Natriuretic Peptide 80 (<100) pg/mL Total Protein 8.1 H (6.5-8.0) g/dL Albumin 4.3 (3.5-5.0) g/dL TSH 0.32 (0.32-4.0) uIU/mL Urine Color Yellow Urine Appearance Clear Urine pH 7.0 (5.0-9.0) Ur Specific Warren 1.010 (1.005-1.025) Urine Protein 30 (1+) H (Neg-Trace) mg/dL Urine Glucose (UA) Negative (Negative) mg/dL Urine Ketones Negative (Negative) mg/dL Urine Blood Moderate (2+) H (Negative) Urine Nitrite Negative (Negative) Ur Leukocyte Esterase Large (3+) H (Negative) Urine RBC >20 H (0-2) /HPF Urine WBC >50 H (0-5) /HPF Ur Squamous Epith Cells 0-2 (0-2) /HPF Urine Bacteria None Seen (None Seen) Hyaline Casts 0-2 (0-2) /LPF Urine Test NEGATIVE (NEGATIVE) Independent Interpretation I performed an independent interpretation of an: EKG External Record Review External record reviewed: Office record Chronic Conditions Patient?s care impacted by: Other (AFib) Critical Care Time Critical Care Time Critical Care Time: Yes Total Critical Care Time: 60 Attestation: I have personally provided critical care time. Time includes review of lab data, radiology results, discussion with consultants, and monitoring for potential decompensation. Intervention performed as documented. Discharge Plan Discharge Clinical Impression: Atrial fibrillation, UTI (urinary tract infection) Patient Disposition: Home, Self-Care Instructions: A-fib (Atrial Fibrillation) (ED), Urinary Tract Infection in Women (ED) Additional Instructions: Please follow-up with your primary care physician tomorrow. If you have any worsening or new symptoms, please return to the emergency room or call 911 Prescriptions: New metoprolol succinate [Toprol XL] 25 mg tablet extended release 24 hr 25 mg PO DAILY Qty: 30 0RF flecainide 100 mg tablet 100 mg PO Q12H Qty: 60 0RF Rx Instructions: Take this medication 20-30 minutes after taking Toprol No Action melatonin 5 mg Tablet,Chewable 5 mg PO BEDTIME PRN (Reason: Sleep) levothyroxine 125 mcg tablet 125 mcg PO DAILY Wegovy 0.5 mg/0.5 mL pen injector 0.5 mg subcut QWEEK Rx Instructions: administer weeks 5 through 8 of therapy metoprolol succinate [Toprol XL] 50 mg tablet extended release 24 hr 50 mg PO DAILY PRN (Reason: atrial fibrillation) Qty: 30 1RF flecainide 50 mg tablet 150 mg PO ONCE PRN (Reason: atrial fibrillation) Qty: 14 2RF Rx Instructions: Take half an hour after p.o. metoprolol Referrals: Maykel Garcia MD [Physician, Cardiology] Print Language: Cameroonian
[2025-04-02 03:05] VITALS: BP 109/69; PULSE 87; RESP 15
--- NOTE | 2025-04-02 04:05 | ECG_ITS ---
Test Reason : REPEAT Blood Pressure : */* mmHG Vent. Rate : 62 BPM Atrial Rate : 62 BPM P-R Int : 214 ms QRS Dur : 74 ms QT Int : 428 ms P-R-T Axes : 31 0 2 degrees QTcB Int : 434 ms Sinus rhythm with 1st degree A-V block Otherwise normal ECG When compared with ECG of 02-Apr-2025 01:32, Sinus rhythm has replaced Atrial fibrillation Referred By: Jacque Bartno Electronically Signed By: VICK SMITH
[2025-04-02 04:07] VITALS: BP 101/57; PULSE 63; RESP 18
--- NOTE | 2025-04-02 04:40 | PC.NURSE ---
iv removed at discharge pt ambulatory pt son at bedside pt verbalized understanding of discharge plan
[2025-04-02 04:41] VITALS: BP 113/53; PULSE 68; RESP 15; TEMP 36.2; O2SAT 99
== END 2025-04-02 04:48 | disposition home or self-care (01) ==
PROVIDERS: Emergency Provider Emergency Medicine
DX: I48.0 Paroxysmal atrial fibrillation (principal); N39.0 Urinary tract infection, site not specified; D50.9 Iron deficiency anemia, unspecified; Z79.899 Other long term (current) drug therapy
CPT/HCPCS: 36415; 80053; 81001; 81025; 83880; 84443; 84484; 85025; 87086; 87088; 87186; 93005; 96361; 96374; 96375; 99284; 99285; J0616; J0696

== ENCOUNTER → 2025-04-02 01:28 | Outpatient (BNV) | payer OTHER, SELFPAY | PROVIDERS: Emergency Provider Emergency Medicine; Visit Provider Internal Medicine | DX: I48.91 Unspecified atrial fibrillation (principal); I44.0 Atrioventricular block, first degree | CPT/HCPCS: 93010 ==

== ENCOUNTER 2025-04-03 12:40 | Outpatient (AMB) | payer OTHER, SELFPAY ==
--- OUTSIDE RECORDS SUMMARY | 2025-04-03 13:50 | XMS_ITS | Patient Health Record ---
Author Organization [facility] Davi leon Carlos Address [address] [place] [address] Care Team Providers Care Marketing Secretary Name Role Phone Isa Marsh Primary Care Provider Roc Lewis [phone] Allergies Allergen (clinical drug ingredient) Drug/Non Drug Allergy documented on EMR Reaction Allergy Type Onset Date Status ibuprofen Advil welts Drug Allergy Active aspirin Aspirin welts Drug Allergy Active Reason For Referral No Information Medications Medication SIG (Take, Route, Frequency, Duration) Notes Start Date End Date Status Naproxen 500 MG 1 tablet with food o r milk as needed Orally every 12 hrs; Duration: 30 days 10/06/2019 Active Physical Therapy . . . 2-3x/week; Durat ion: 3-4 weeks 08/17/2019 Active Levothyroxine Sodium 137 MCG 1 tablet in the morning on an empty stomach Orally Once a day Active Vitamin D Active Social History Tobacco Use: Social History Observation Description Date Details (start date - stop date) Never Smoker NA - NA Tobacco Use/Smoking Question Answer Notes Are you a: nonsmoker Additional Findings: Tobacco Non-User Current no n-smoker Alcohol Screen Question Answer Notes Did you have a drink containing alcohol in the p ast year? Yes Points 0 Interpretation Negative Plan Of Treatment Pending Test Test Name Order Date X ray : Foot, left 2V 08/17/2019 X ray : Foot, right 2V 08/17/2019 Insurance Providers Payer Name Payer Address Payer Phone Subscriber Number Group Number Insured Name Patient Relationship to Insured Coverage Start Date Coverage End Date [facility] [address] [place] [address] [phone] [id number] [phone] [id number] Betsy Sorensen Self - patient is the insured 7 Medical (General) History Medical History History ICD Code asthma Back pain Headaches Keloid/Thick Scar Sciatica thyroid Surgical History Surgery Date(Month/Year)
== END 2025-04-03 13:35 | disposition home or self-care (01) ==
PROVIDERS: PCP Nurse Practitioner Family; Visit Provider Internal Medicine Cardiovascular Disease
DX: R00.1 Bradycardia, unspecified (principal)
CPT/HCPCS: 93010

== ENCOUNTER 2025-04-03 13:11 | Emergency (ER) | payer OTHER, SELFPAY ==
--- NOTE | ~2025-04-03 | XR_ITS ---
EXAMINATION: XR CHEST 2 VIEWS HISTORY: chest pain COMPARISON: Comparison is made with the prior examination dated 11/01/2024. FINDINGS: PA and lateral views of the chest are submitted. The lungs are expanded and clear. There is no pleural effusion, pneumothorax, or pulmonary vascular congestion. The heart is normal in size. The bones are intact. XR/XR chest 2V IMPRESSION: No acute cardiopulmonary abnormality. Electronically signed by: Francis Alejandro MD 04/03/2025 02:26 PM EDT
[2025-04-03 13:13] VITALS: BP 101/54; PULSE 48; RESP 14; TEMP 36.6; O2SAT 99; BMI 27.9
--- NOTE | 2025-04-03 13:14 | ED_ITS ---
HPI - General Adult General Chief complaint: Chest Pain Stated complaint: Low Heart Rate & Blood Pressure Time Seen by Provider: 04/03/25 13:33 Source: patient Mode of arrival: ambulatory Limitations: no limitations History of Present Illness ED Provider: HPI narrative: 44-year-old woman was seen last night for paroxysmal AFib, given 2.5 mg of IV metoprolol, and was discharged on flecainide 100 mg twice a day and metoprolol 25 mg daily, in triage it was documented that she took 50 mg of metoprolol, but as I spoke to the patient, she endorsed to me that she was given she thought 25 mg of IV metoprolol yesterday and she combined that with 25 mg that she took today so she took 25 of metoprolol and 100 flecainide, started having chest pain she chest tightness, called cardiology office and was told to come to the ER Related Data Home Medications ?Medication ?Instructions ?Recorded ?Confirmed levothyroxine 125 mcg tablet 125 mcg PO DAILY 10/01/21 12/13/24 melatonin 5 mg chewable tablet 5 mg PO BEDTIME PRN Sle ep 01/21/23 12/13/24 semaglutide (weight loss) 0.5 0.5 mg subcut QWEEK 02/01 mg/0.5 mL subcutaneous pen injector (Wegovy) Previous Rx's ?Medication ?Instructions ?Recorded flecainide 50 mg tablet 150 mg (3 x 50 mg) PO ONCE P RN 12/13/24 atrial fibrillation #14 tabs metoprolol succinate 50 mg 50 mg PO DAILY PRN atrial 0 12/13/24 tablet,extended release 24 hr fibrillation #30 tabs (Toprol XL) cefuroxime axetil 250 mg tablet 250 mg PO BID #14 tabs 04/02/25 flecainide 100 mg tablet 100 mg PO Q12H #60 tabs 03/11 12/02 metoprolol succinate 25 mg 25 mg PO DAILY #30 tabs tablet,extended release 24 hr (Toprol XL) Allergies Allergy/AdvReac Type Severity Reaction Status Date / Time aspirin (ASPIRIN) Allergy Unknown HIVES Verified 04/03/25 13:24 shellfish derived Allergy Anaphylaxis Verified 04/03/25 13:24 iron (From Venofer) AdvReac Unresponsiv Verified 04/03/25 13:24 e Review of Systems 2 Constitutional: Constitutional: Reports as per HPI [facility] Past Medical History Medical History Paroxysmal atrial fibrillation Uterine polyp Pneumonia due to COVID-19 virus COVID-19 Vitamin D deficiency Infertility Hepatic steatosis Hypothyroidism Iron deficiency anemia Surgical History Hx of biopsy Family History Family History Father Murder Mother Cardiovascular system problem Social History Social History Alcohol intake: never Patient Tobacco Use Status: Never used Tobacco Smoked in Last 30 Days: No Use of substances other than those prescribed or required for medical reasons: No Advance Directives: No Advance Directives Information Provided: Yes Do you have a plan to hurt others: No Plan Patient : No service: No Current occupational status: employed 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 Physical Exam ED Vital Signs: Vital Signs - 24 hr 04/03/25 13:13 04/03/25 14:58 04/03/25 16:43 Temperature 97.9 F 97.7 F Pulse Rate 48 L 53 58 Respiratory Rate 14 14 16 Blood Pressure 101/54 L 100/51 L 107/59 L Pulse Oximetry 99 100 99 Oxygen Delivery Method Room Air Room Air Room Air BMI result Body Mass Index 27.9 Const Other: * Gen: ?Overall well-appearing patient * HEENT: PERRLA, EOMI, MMM, * Neck: Supple, no LAD * CV: RRR, no obvious murmurs appreciated * Resp: ?No wheezing rales rhonchi no stridor moving air well * Abd: ?Bowel sounds are present, no tenderness no rebound no rigidity * MSK: FROM, strength 5/5 all extremities * Skin: Warm, dry, intact, * Neuro: ?Alert and oriented x3, moving upper and lower extremities symmetrically, no obvious facial asymmetry noted Course Course Course Narrative: Rapid medical examination performed in triage by Vita Salomon PA-C. Patient is a 44 year old assigned female at presenting to the emergency department with a low blood pressure. Patient states that she is supposed to be on 25mg of Metorpolol and 100mg of Fleccanide. However, this morning, she took 50mg of Metoprolol and 100mg of Fleccanide. Patient states that she went to the cardiology office and they recommended she come to the ER. Patient states that she is having chest tightness. Detailed physical exam and review of systems are deferred to the school librarian. EKG, labs, imaging, swabs ordered. Patient placed back in the waiting room pending room availability and results. Medications Administered Discontinued Medications Generic Name Dose Route Start Last Admin Trade Name Frethong PRN Reason Stop Dose Admin Sodium Chloride 1,000 mls @ 999 mls/hr 04/03/25 13:45 04/03/25 15:00 Ns IV 04/03/25 14:45 Infused .Q1H1M KAROLINE Infusion Sodium Chloride 1,000 mls @ 999 mls/hr 04/03/25 16:00 04/03/25 17:01 Ns IV 04/03/25 17:00 Infused .Q1H1M KAROLINE Infusion Medical Decision Making Medical Decision Making MDM Narrative: See my HPI, patient is having a hard time I believe communicating how much of her medication she took but it seems that she took the prescribed dose of metoprolol and flecainide 25 mg and 100 respectively, she believes she received 25 mg of IV metoprolol yesterday it was 2.5 mg, she usually runs low both on her blood pressure and heart rate, presenting with worsening bradycardia to mid 40s and low 50s, blood pressure however remained stable with a map over 65, I reached out to the executive cyber leader on-call I believe her medications we will need to be adjusted, will give her fluids, if she continues to be symptomatic anticipate admission. 15:50 patient received a L of fluids still feeling weak, at the time of my evaluation her map was 64 so order another 1L of fluids 17:07 patient re-evaluated, her heart rate is now mid 50s blood pressure is stable, Dr. Perez gave the option of decreasing the flecainide patient really does not want to take 100 mg of flecainide twice a day, we will discharge her on metoprolol 25 mg daily and then flecainide 50 mg daily Differential Diagnosis Differential Diagnoses: The differential diagnosis associated with the presentation includes (Over medication, dehydration, electrolyte derangements, AV pauline block, symptomatic bradycardia) Admission/Observation Consideration of admission/observation: Escalation of care including admission/observation considered 2023 Emergency Medicine Coding Guide from [employer] on 04/03/2025 All calculations should be rechecked by clinician prior to use RESULT SUMMARY: 5 Estimated Level of Service Problems: High (5) Risk: High (5) Data: Extensive (5) NARRATIVE MDM: This patient's problem complexity is High as patient: may have an acute or chronic illness/injury posing a threat to life or body function. This patient's risk is High due to: overall presentation requiring evaluation for a potentially High-risk process. This patient's data complexity is Extensive due to: -multiple tests ordered/reviewed -independent interpretation of imaging or EKG -discussion of management/testing with external professional INPUTS: Number and Complexity ?> 2 = 5: illness/injury w/life or body threat (b) Risk level ?> 4 = High Tests ordered ?> 3 = =3 Tests results reviewed (excluding labs) ?> 2 = 2 Prior external notes reviewed ?> 0 = 0 Assessment requiring and independent historian ?> 0 = No Independent interpretation of tests ?> 1 = Yes Discussed management/test interpretation w/external professional ?> 1 = Yes Consult Healthcare Provider Management of the patient was discussed with: Auto Winder (Dr. Garcia) Lab Data [facility] Lab Attestation statement: I reviewed the patient's lab results. 04/03/25 13:37 04/03/25 13:37 Labs: Lab Results 04/03/25 04/03/25 Range/Units 13:37 14:57 WBC 6.5 (4.8-10.8) X10*3/uL RBC 4.03 L (4.20-5.50) X10*6/uL Hgb 10.2 L (12.0-16.0) g/dl Hct 33.1 L (37.0-47.0) % MCV 82.1 (80.0-98.0) fL MCH 25.3 L (27.0-33.0) pg MCHC 30.8 L (31.0-35.0) g/dl RDW 13.6 (11.0-16.0) % Plt Count 219 (160-400) X10*3/uL MPV 11.0 (9.4-12.3) fL Immature Gran % (Auto) 0.3 (0.0-0.4) % Neut % (Auto) 59.0 (45-73) % Lymph % (Auto) 30.8 (20-40) % Swisher % (Auto) 8.4 (2-11) % Eos % (Auto) 1.2 (0-4) % Baso % (Auto) 0.3 (0-2) % Lymph # (Auto) 2.0 (1.2-4.9) X10*3/uL Swisher # (Auto) 0.6 (0.1-1.2) X10*3/uL Eos # (Auto) 0.1 (0.0-0.4) X10*3/uL Baso # (Auto) 0.0 (0.0-0.2) X10*3/uL Abs Immat Gran (auto) 0.02 (0.00-0.03) X10*3/uL Absolute Neuts (auto) 3.8 (2.0-8.3) x10*3/uL Absolute Nucleated RBC 0.020 H (0.0-0.012) X10*3/uL Nucleated RBC % (auto) 0.3 H (0.0-0.2) /100WBC Sodium 139 (135-145) mmol/L Potassium 3.9 (3.3-5.1) mmol/L Chloride 109 H (96-108) mmol/L Carbon Dioxide 26 (22-29) mmol/L Anion Gap 8 L (12-20) BUN 11 (9-16) mg/dL Creatinine 0.60 (0.5-1.4) mg/dL Estim Creat Clear Calc 125.1 Estimated GFR > 60 Random Glucose 91 (60-115) mg/dL Calcium 8.8 (8.4-10.2) mg/dL Magnesium 1.9 (1.6-2.6) mg/dL Total Bilirubin 0.3 (0.0-1.0) mg/dL AST 42 H (5-31) U/L ALT 24 (0-31) U/L Alkaline Phosphatase 110 (39-117) U/L Troponin I High Sens < 2.7 (<3.5-17.0) ng/L Total Protein 7.0 (6.5-8.0) g/dL Albumin 3.6 (3.5-5.0) g/dL COVID-19 ([facility]) Negative (Negative) COVID-19 Clin Com See Note Independent Interpretation I performed an independent interpretation of an: EKG (48 sinus bradycardia no dysrhythmia no QTC prolongation) and Plain X-Ray (My independent chest xray interpretation: Lungs: Lungs are clear bilaterally without evidence of focal consolidation, pleural effusion, or pneumothorax. Cardiac silhouette is unremarkable, no obvious mediastinal widening, no obvious bony abnormalities such as fractures. Impression: Normal chest X-r) Radiology Impression Discussion of test interpretation with radiology: I have reviewed the radiologist's reading. Critical Care Time Critical Care Time Critical Care Time: Yes Total Critical Care Time: 60 Attestation: Time is exclusive of separately billable procedures. Time includes: direct patient care, patient reassessment, coordination of patient care, interpretation of data (laboratory data, pulse oximetry, arterial blood gases and chest xrays), review of patient's medical records, medical consultation and documentation of patient care. Procedures excluded from critical care time: central intravenous line placement and electrocardiography. Discharge Plan Discharge Clinical Impression: Paroxysmal atrial fibrillation, Medication adverse effect, Bradycardia, drug induced Patient Disposition: Home, Self-Care Additional Instructions: Continue taking metoprolol 25 mg extended release 25 mg once a day, and Dr. Perez gave me the option of decreasing your flecainide you can take 50 mg or half a pill twice daily Do not take anymore metoprolol today. Follow up with the PCP any other issues or concerns come back to the ER Your blood work, EKG and chest x-ray reassuring Prescriptions: No Action melatonin 5 mg Tablet,Chewable 5 mg PO BEDTIME PRN (Reason: Sleep) levothyroxine 125 mcg tablet 125 mcg PO DAILY metoprolol succinate [Toprol XL] 25 mg tablet extended release 24 hr 25 mg PO DAILY Qty: 30 0RF flecainide 100 mg tablet 100 mg PO Q12H Qty: 60 0RF Rx Instructions: Take this medication 20-30 minutes after taking Toprol cefuroxime axetil 250 mg tablet 250 mg PO BID Qty: 14 0RF Wegovy 0.5 mg/0.5 mL pen injector 0.5 mg subcut QWEEK Rx Instructions: administer weeks 5 through 8 of therapy metoprolol succinate [Toprol XL] 50 mg tablet extended release 24 hr 50 mg PO DAILY PRN (Reason: atrial fibrillation) Qty: 30 1RF flecainide 50 mg tablet 150 mg PO ONCE PRN (Reason: atrial fibrillation) Qty: 14 2RF Rx Instructions: Take half an hour after p.o. metoprolol Referrals: Isa Marsh HEALTH CARE ADMINISTRATOR [Primary Care Provider, Internal Medicine] - 1 week Clinical Impression: Bradycardia, drug induced; Medication adverse effect; Paroxysmal atrial fibrillation Print Language: Omani
--- NOTE | 2025-04-03 13:16 | ECG_ITS ---
Test Reason : CHEST PAIN Blood Pressure : */* mmHG Vent. Rate : 48 BPM Atrial Rate : 48 BPM P-R Int : 200 ms QRS Dur : 82 ms QT Int : 468 ms P-R-T Axes : 4 -13 3 degrees QTcB Int : 418 ms Sinus bradycardia Otherwise normal ECG When compared with ECG of 02-Apr-2025 04:12, No significant change was found Referred By: Vita Salomon Electronically Signed By: VICK SMITH
--- NOTE | 2025-04-03 13:40 | PC.NURSE ---
Pt reports dizziness, fatigue and chest tightness at this time; HR SB 40-50's with no ectopy; bp 103/46; MD at bedside for exam; IV access established; will monitor/tx per orders
[2025-04-03 13:42] LABS: MANUAL DIFF FLAG NO
[2025-04-03 13:46] LABS: Hematocrit 33.1 % (37.0-47.0); Hemoglobin 10.2 g/dl (12.0-16.0); Imm Gran Abs Auto 0.02 X10*3/uL (0.00-0.03); Imm Gran Pct Auto 0.3 % (0.0-0.4); Lymphocytes Absolute Auto 2.0 X10*3/uL (1.2-4.9); Mean Corpuscular HGB Conc 30.8 g/dl (31.0-35.0); Mean Corpuscular Hemoglobin 25.3 pg (27.0-33.0); Mean Corpuscular Volume 82.1 fL (80.0-98.0); NRBC Abs Auto 0.020 X10*3/uL (0.0-0.012); NRBC Pct Auto 0.3 /100WBC (0.0-0.2); Platelet Count 219 X10*3/uL (160-400); Red Blood Count 4.03 X10*6/uL (4.20-5.50); White Blood Count 6.5 X10*3/uL (4.8-10.8)
[2025-04-03 13:56] LABS: Alanine Aminotransferase 24 U/L (0-31); Albumin Level 3.6 g/dL (3.5-5.0); Alkaline Phosphatase 110 U/L (39-117); Anion Gap 8 (12-20); Aspartate Amino Transferase 42 U/L (5-31); Blood Urea Nitrogen 11 mg/dL (9-16); Calcium 8.8 mg/dL (8.4-10.2); Carbon Dioxide 26 mmol/L (22-29); Chloride 109 mmol/L (96-108); Creatinine Clr Calc Pharmacy 125.1; Estimated Glomerular Filt Rate > 60; Magnesium 1.9 mg/dL (1.6-2.6); Potassium 3.9 mmol/L (3.3-5.1); Sodium 139 mmol/L (135-145); Total Protein 7.0 g/dL (6.5-8.0)
[2025-04-03 14:09] LABS: Troponin-I High Sensitivity < 2.7 ng/L (<3.5-17.0)
[2025-04-03 14:58] VITALS: BP 100/51; PULSE 53; RESP 14; TEMP 36.5; O2SAT 100
[2025-04-03 15:21] LABS: COVID-19 Test Negative (Negative); IDNOW Serial# 58CA691E
[2025-04-03 16:43] VITALS: BP 107/59; PULSE 58; RESP 16; O2SAT 99
--- NOTE | 2025-04-03 16:43 | PC.NURSE ---
Pt OOB to BR with steady gait; vs improving with tx; provider aware
[2025-04-03 17:29] VITALS: BP 108/58; PULSE 56; RESP 16; TEMP 36.4; O2SAT 99
== END 2025-04-03 17:31 | disposition home or self-care (01) ==
PROVIDERS: Physician Assistant Medical; Emergency Provider Emergency Medicine; PCP Nurse Practitioner Family
DX: N39.0 Urinary tract infection, site not specified (principal); I48.0 Paroxysmal atrial fibrillation; R00.1 Bradycardia, unspecified; R11.0 Nausea; T44.7X5A Adverse effect of beta-adrenoreceptor antagonists, initial encounter; Y92.9 Unspecified place or not applicable; Z79.899 Other long term (current) drug therapy; Z03.818 Encounter for observation for suspected exposure to other biological agents ruled out
CPT/HCPCS: 71046; 80053; 83735; 84484; 85025; 87635; 93005; 96360; 96361; 99284; 99285

== ENCOUNTER → 2025-04-03 13:16 | Outpatient (BNV) | payer OTHER, SELFPAY | PROVIDERS: Emergency Provider Emergency Medicine; PCP Nurse Practitioner Family; Visit Provider Radiology Diagnostic Radiology | DX: R07.89 Other chest pain (principal) | CPT/HCPCS: 71046 ==

== ENCOUNTER 2025-04-15 23:06 | Emergency (ER) | payer OTHER, SELFPAY ==
--- NOTE | 2025-04-15 | ECG_ITS ---
Test Reason : AFIB Blood Pressure : */* mmHG Vent. Rate : 76 BPM Atrial Rate : * BPM P-R Int : * ms QRS Dur : 76 ms QT Int : 410 ms P-R-T Axes : * -15 26 degrees QTcB Int : 461 ms Atrial fibrillation Abnormal ECG When compared with ECG of 03-Apr-2025 13:26, Atrial fibrillation has replaced Sinus rhythm Vent. rate has increased by 28 bpm Referred By: Generic ED Physician Electronically Signed By: TERRI HOSKINS MD
--- NOTE | ~2025-04-15 | XR_ITS ---
CLINICAL HISTORY: chest pain 2 view chest x-ray Comparison: CR/SR - XR CHEST 2 VIEWS - 04/03/25 14:23 EDT Findings: No consolidation or effusion. Normal size heart. No acute fracture. IMPRESSION: 1. No acute findings. This document has been electronically signed by: Russ Berkowitz MD on 04/16/2025 01:25:23
[2025-04-15 23:09] VITALS: BP 114/63; PULSE 78; RESP 19; TEMP 36.4; O2SAT 100; BMI 28.1
[2025-04-15 23:36] LABS: Hematocrit 36.0 % (37.0-47.0); Hemoglobin 11.6 g/dl (12.0-16.0); Imm Gran Abs Auto 0.02 X10*3/uL (0.00-0.03); Imm Gran Pct Auto 0.3 % (0.0-0.4); Lymphocytes Absolute Auto 2.5 X10*3/uL (1.2-4.9); MANUAL DIFF FLAG NO; Mean Corpuscular HGB Conc 32.2 g/dl (31.0-35.0); Mean Corpuscular Hemoglobin 25.4 pg (27.0-33.0); Mean Corpuscular Volume 78.9 fL (80.0-98.0); NRBC Abs Auto 0.000 X10*3/uL (0.0-0.012); NRBC Pct Auto 0.0 /100WBC (0.0-0.2); Platelet Count 264 X10*3/uL (160-400); Red Blood Count 4.56 X10*6/uL (4.20-5.50); White Blood Count 7.9 X10*3/uL (4.8-10.8)
[2025-04-15 23:53] LABS: Alanine Aminotransferase 59 U/L (0-31); Albumin Level 3.9 g/dL (3.5-5.0); Alkaline Phosphatase 164 U/L (39-117); Anion Gap 12 (12-20); Aspartate Amino Transferase 49 U/L (5-31); Blood Urea Nitrogen 10 mg/dL (9-16); Calcium 8.8 mg/dL (8.4-10.2); Carbon Dioxide 25 mmol/L (22-29); Chloride 109 mmol/L (96-108); Creatinine Clr Calc Pharmacy 111.3; Estimated Glomerular Filt Rate > 60; Potassium 3.8 mmol/L (3.3-5.1); Sodium 142 mmol/L (135-145); Total Protein 7.5 g/dL (6.5-8.0)
[2025-04-16 00:06] LABS: Troponin-I High Sensitivity < 2.7 ng/L (<3.5-17.0)
[2025-04-16 00:49] VITALS: BP 98/54; PULSE 53; RESP 19; TEMP 36.6; O2SAT 100
[2025-04-16 00:51] VITALS: BP 106/60; PULSE 51; RESP 15; O2SAT 100
--- NOTE | 2025-04-16 01:07 | PC.NURSE ---
pt a&o, no sob or chest pain, pt changed over, pt placed on bed side monitor, provider into assess pt.
--- OUTSIDE RECORDS SUMMARY | 2025-04-16 01:12 | XMS_ITS | Patient Health Record ---
Author Organization [facility] Davi leon Carlos Address [address] [place] [address] Care Team Providers Care Baton Teacher Name Role Phone Isa Marsh Primary Care Provider Roc Lewis [phone] Allergies Allergen (clinical drug ingredient) Drug/Non Drug [...] Insured Coverage Start Date Coverage End Date [facility] [address] [place] [address] [phone] [id number] [phone] [id number] Betsy Sorensen Self - patient is the insured 7 Medical (General) History Medical History History ICD Code asthma Back pain Headaches Keloid/Thick Scar Sciatica thyroid Surgical History Surgery Date(Month/Year)
--- NOTE | 2025-04-16 01:57 | ECG_ITS ---
Test Reason : RHYTHM CHECK Blood Pressure : */* mmHG Vent. Rate : 52 BPM Atrial Rate : 52 BPM P-R Int : 204 ms QRS Dur : 88 ms QT Int : 476 ms P-R-T Axes : 9 -12 -1 degrees QTcB Int : 442 ms Sinus bradycardia Otherwise normal ECG When compared with ECG of 15-Apr-2025 23:21, Sinus rhythm has replaced Atrial fibrillation Inverted T waves have replaced nonspecific T wave abnormality in Inferior leads Referred By: Jacque Barton Electronically Signed By: TERRI HOSKINS MD
[2025-04-16 02:06] VITALS: BP 101/56; PULSE 52; RESP 16; TEMP 36.6; O2SAT 98
--- NOTE | 2025-04-16 02:34 | ED_ITS ---
HPI - Arrhythmia/Palpitations General Chief Complaint: Arrhythmia/Palpitations Stated Complaint: Afib Time Seen by Provider: 04/16/25 00:52 Source: patient Mode of arrival: ambulatory Limitations: no limitations History of Present Illness ED Provider: Dr. Jacque Barton HPI narrative: Patient comes to the emergency room complaining of atrial fibrillation, chest fluttering sensation. Patient states that she is taking flecainide 50 mg b.i.d. and metoprolol.- Related Data Home Medications ?Medication ?Instructions ?Recorded ?Confirmed levothyroxine 125 mcg tablet 125 mcg PO DAILY 10/01/21 04/06/25 melatonin 5 mg chewable tablet 5 mg PO BEDTIME PRN Sle ep 01/21/23 04/06/25 semaglutide (weight loss) 0.5 0.5 mg subcut QWEEK 02/0104/06/25 mg/0.5 mL subcutaneous pen injector (Wegovy) Previous Rx's ?Medication ?Instructions ?Recorded cefuroxime axetil 250 mg tablet 250 mg PO BID #14 tabs 04/02/25 metoprolol succinate 25 mg 25 mg PO DAILY #30 tabs tablet,extended release 24 hr (Toprol XL) flecainide 50 mg tablet 50 mg PO Q12H 90 days #180 t abs 04/04/25 lorazepam 0.5 mg tablet (Ativan) 0.5 mg PO BID PRN anx iety #7 tabs 04/16/25 Allergies Allergy/AdvReac Type Severity Reaction Status Date / Time aspirin (ASPIRIN) Allergy Unknown HIVES Verified 04/15/25 23:09 shellfish derived Allergy Anaphylaxis Verified 04/15/25 23:09 [facility] Past Medical History Medical History Paroxysmal atrial fibrillation Uterine polyp Pneumonia due to COVID-19 virus COVID-19 Vitamin D deficiency Infertility Hepatic steatosis Hypothyroidism Iron deficiency anemia Surgical History Hx of biopsy Family History Family History Father Murder Mother Cardiovascular system problem Social History Social History Alcohol intake: never Patient Tobacco Use Status: Never used Tobacco Smoked in Last 30 Days: No Use of substances other than those prescribed or required for medical reasons: No Advance Directives: No Advance Directives Information Provided: Yes Do you have a plan to hurt others: No Plan service: No Current occupational status: employed 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 Physical Exam 2 Vital Signs: Vital Signs: Last Vital Signs Temp 97.8 F 04/16/25 02:06 Pulse 52 04/16/25 02:06 Resp 16 04/16/25 02:06 BP 101/56 L 04/16/25 02:06 Pulse Ox 98 04/16/25 02:06 O2 Del Method Room Air 04/16/25 02:06 BMI result Body Mass Index 28.1 Medical Decision Making Medical Decision Making [facility] Narrative: My interpretation of EKG 1: Atrial flutter, heart rate 76, no ST segment depression or elevation, no T-wave inversion, QTC 461 My interpretation of labs: No significant abnormality in patient's hematology and chemistry, normal troponin With a any medications, patient converted back to sinus rhythm. My interpretation of EKG 2.: Sinus bradycardia, heart rate 52, no ST segment depression or elevation, nonspecific T-wave inversion 83, QTC 88 Patient's CHADS2 Vasc score is 1 I discussed the patient with Dr. Fregoso, we will increase patient's flecainide to 100 mg in the morning and 50 mg in the evening. Continue taking metoprolol once a day. Patient states that she feels very anxious when her heart rate increases and then makes her symptoms worse. I discussed with the patient that we can not send her a small script for Ativan when she is truly anxious. Patient will follow-up with her director of outreach Differential Diagnosis Differential Diagnoses: The differential diagnosis associated with the presentation includes (Atrial fibrillation, atrial flutter, anxiety) Admission/Observation Consideration of admission/observation: Escalation of care including admission/observation considered (Patient has been in and out of AFib multiple times throughout the week. I offered to the patient admission, patient declined due to fear of the co-payment) Consult Healthcare Provider Management of the patient was discussed with: Radiology Technologist Lab Data [facility] Lab Attestation statement: I reviewed the patient's lab results. 04/15/25 23:26 04/15/25 23:26 Labs: Lab Results 04/15/25 Range/Units 23:26 WBC 7.9 (4.8-10.8) X10*3/uL RBC 4.56 (4.20-5.50) X10*6/uL Hgb 11.6 L (12.0-16.0) g/dl Hct 36.0 L (37.0-47.0) % MCV 78.9 L (80.0-98.0) fL MCH 25.4 L (27.0-33.0) pg MCHC 32.2 (31.0-35.0) g/dl RDW 13.8 (11.0-16.0) % Plt Count 264 (160-400) X10*3/uL MPV 10.7 (9.4-12.3) fL Immature Gran % (Auto) 0.3 (0.0-0.4) % Neut % (Auto) 60.0 (45-73) % Lymph % (Auto) 31.3 (20-40) % Summit % (Auto) 6.5 (2-11) % Eos % (Auto) 1.5 (0-4) % Baso % (Auto) 0.4 (0-2) % Lymph # (Auto) 2.5 (1.2-4.9) X10*3/uL Summit # (Auto) 0.5 (0.1-1.2) X10*3/uL Eos # (Auto) 0.1 (0.0-0.4) X10*3/uL Baso # (Auto) 0.0 (0.0-0.2) X10*3/uL Abs Immat Gran (auto) 0.02 (0.00-0.03) X10*3/uL Absolute Neuts (auto) 4.8 (2.0-8.3) x10*3/uL Absolute Nucleated RBC 0.000 (0.0-0.012) X10*3/uL Nucleated RBC % (auto) 0.0 (0.0-0.2) /100WBC Sodium 142 (135-145) mmol/L Potassium 3.8 (3.3-5.1) mmol/L Chloride 109 H (96-108) mmol/L Carbon Dioxide 25 (22-29) mmol/L Anion Gap 12 (12-20) BUN 10 (9-16) mg/dL Creatinine 0.67 (0.5-1.4) mg/dL Estim Creat Clear Calc 111.3 Estimated GFR > 60 Random Glucose 141 H (60-115) mg/dL Calcium 8.8 (8.4-10.2) mg/dL Total Bilirubin 0.3 (0.0-1.0) mg/dL Direct Bilirubin 0.1 (0.0-0.5) mg/dL AST 49 H (5-31) U/L ALT 59 H (0-31) U/L Alkaline Phosphatase 164 H (39-117) U/L Troponin I High Sens < 2.7 (<3.5-17.0) ng/L Total Protein 7.5 (6.5-8.0) g/dL Albumin 3.9 (3.5-5.0) g/dL Independent Interpretation I performed an independent interpretation of an: EKG Critical Care Time Critical Care Time Critical Care Time: Yes Total Critical Care Time: 45 Attestation: I have personally provided critical care time. Time includes review of lab data, radiology results, discussion with consultants, and monitoring for potential decompensation. Intervention performed as documented. Discharge Plan Discharge Clinical Impression: Paroxysmal atrial fibrillation Patient Disposition: Home, Self-Care Instructions: A-fib (Atrial Fibrillation) (ED) Additional Instructions: Per cardiology, increase your flecainide to 100 mg in the morning and 50 mg in the evening. Please follow-up with your primary care physician tomorrow. If you have any worsening or new symptoms, please return to the emergency room or call 911 Prescriptions: New lorazepam [Ativan] 0.5 mg tablet 0.5 mg PO BID PRN (Reason: anxiety) Qty: 7 0RF No Action flecainide 50 mg tablet 50 mg PO Q12H 90 Days Qty: 180 0RF Rx Instructions: Take this medication 20-30 minutes after taking Toprol melatonin 5 mg Tablet,Chewable 5 mg PO BEDTIME PRN (Reason: Sleep) levothyroxine 125 mcg tablet 125 mcg PO DAILY metoprolol succinate [Toprol XL] 25 mg tablet extended release 24 hr 25 mg PO DAILY Qty: 30 0RF cefuroxime axetil 250 mg tablet 250 mg PO BID Qty: 14 0RF Wegovy 0.5 mg/0.5 mL pen injector 0.5 mg subcut QWEEK Rx Instructions: administer weeks 5 through 8 of therapy Interventions: ED Discharge Assessment Last Done: 04/16/25 02:41 Print Language: Georgian
--- NOTE | 2025-04-16 02:39 | PC.NURSE ---
reviewed discharge instructions with pt, pt verbalized understanding, no sign of distress.
[2025-04-16 02:41] VITALS: BP 101/56; PULSE 52; RESP 16; TEMP 36.6; O2SAT 98
== END 2025-04-16 02:41 | disposition home or self-care (01) ==
PROVIDERS: Emergency Provider Emergency Medicine; PCP Nurse Practitioner Family
DX: I48.0 Paroxysmal atrial fibrillation (principal); Z79.02 Long term (current) use of antithrombotics/antiplatelets
CPT/HCPCS: 36415; 71046; 80048; 80076; 84484; 85025; 93005; 99283; 99285

== ENCOUNTER → 2025-04-15 23:21 | Outpatient (BNV) | payer OTHER, SELFPAY | PROVIDERS: Emergency Provider Emergency Medicine; PCP Nurse Practitioner Family; Visit Provider Internal Medicine Cardiovascular Disease | DX: I48.91 Unspecified atrial fibrillation (principal) | CPT/HCPCS: 93010 ==

== ENCOUNTER → 2025-04-15 23:44 | Outpatient (BNV) | payer OTHER, SELFPAY | PROVIDERS: Emergency Provider Emergency Medicine; PCP Nurse Practitioner Family; Visit Provider Radiology Diagnostic Radiology | DX: R07.9 Chest pain, unspecified (principal) | CPT/HCPCS: 71046 ==

== ENCOUNTER → 2025-04-16 01:57 | Outpatient (BNV) | payer OTHER, SELFPAY | PROVIDERS: Emergency Provider Emergency Medicine; PCP Nurse Practitioner Family; Visit Provider Internal Medicine Cardiovascular Disease | DX: R00.1 Bradycardia, unspecified (principal) | CPT/HCPCS: 93010 ==

== ENCOUNTER 2025-04-27 09:38 | Outpatient (AMB) | payer OTHER, SELFPAY ==
--- NOTE | 2025-04-27 09:40 | A.OFFVIS_ITS ---
Vital Signs 04/27/25 09:44 Height 5 ft 6 in Weight 177 lb 4.026 oz BMI 28.6 BP 86/50 L Blood Pressure Location Lt brachial Pulse 50 Pulse Source Monitor Intake Visit Reasons: f/u dx afib Intake Note: f/up- dx afib Health Education Specialist Required: No Accompanied by: Self / Same As Patient Allergies aspirin (ASPIRIN) Allergy (Unknown, Verified 04/15/25 23:09) HIVES shellfish derived Allergy (Verified 04/15/25 23:09) Anaphylaxis Medication List - Last Reconciled 04/27/25 by Donna Marsh, CUSTOMER SERVICES MANAGER-C cefuroxime axetil 250 mg PO BID flecainide 100 mg PO BID levothyroxine 125 mcg PO DAILY lorazepam (Ativan) 0.5 mg PO BID PRN melatonin 5 mg PO BEDTIME PRN metoprolol succinate ER (Toprol XL) 25 mg PO DAILY semaglutide (weight loss) (Wegovy) 0.5 mg subcut QWEEK HPI HPI f/u dx afib: Details: Betsy is a 45-year-old female with past medical history of paroxysmal atrial fibrillation with recent recurrent episodes requiring ER visit and start of flecainide. She now presents for follow-up. Today she reports that 2 days ago she had a 6 hour episode of AFib. She notices the heart palpitations and she can see it on her smart watch. Her heart rates are elevated at the time of AFib. She has been taking her medications as directed including flecainide 100 mg b.i.d. and metoprolol XL 25 mg daily. She has some mild fatigue, no lightheadedness, no presyncope, syncope. No chest discomfort at rest or with activity. No shortness of breath, PND, orthopnea or edema. She has good activity tolerance. She is very concerned about AFib and how this will affect her future. She is considering a going forward. She is currently not on the Xarelto. She denies any history of diabetes, hypertension,, prior clotting or stroke, vascular disease. We discussed ablation and she is agreeable to proceed. 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 Review of Systems Const All systems reviewed & are unremarkable except as noted in HPI and below Denies chills, Denies fatigue, Denies fever(s), Denies frequent falls, Denies weakness, Denies weight gain and Denies weight loss Eyes Reports blurry vision ENT Denies dizziness Card Reports chest pain, Reports chest pain at rest, Reports chest pain with activity, Reports rapid heart rate (palpitations), Denies leg edema, Denies lightheadedness, Denies palpitations, Denies dyspnea and Denies dyspnea on exertion Resp Denies cough, Denies dyspnea and Denies dyspnea on exertion GI Denies hematochezia Musc Denies abnormal gait, Denies muscle weakness, Denies numbness, Denies radiating pain into limb and Denies tingling Neuro Denies abnormal gait, Denies dizziness, Denies frequent falls, Denies numbness, Denies tingling and Denies weakness Endo Denies fatigue and Denies palpitations Physical Exam Vital Signs: Last Vital Signs Pulse 50 04/27/25 09:44 BMI result Body Mass Index 28.6 Const General: cooperative, healthy appearing, comfortable and no acute distress Orientation/consciousness: patient oriented x3 Neck Neck: Yes normal visual inspection and Yes no JVD Resp Effort & Inspection: normal respiratory effort Auscultation: clear to auscultation bilaterally, no crackles, no rales, no rhonchi and no wheezes Cardio Rate: regular rate Rhythm: regular rhythm Heart sounds: S1 normal heart sound present, S2 normal heart sound present, no gallops, no murmurs and no rubs Neuro General: patient oriented x3 Extrem General: Yes normal to inspection, No no pedal edema and No calf tenderness Psych Appearance: grossly normal Mental Status: mental status grossly normal Speech and movement: Normal speech and movement present Office Procedures EKG Details: Today, read by me, sinus bradycardia, first-degree AV block with GA interval 212 milliseconds, QTC 424 milliseconds, rate 50 [id number], Complete Assessment & Plan Assessment & Plan (1) Paroxysmal atrial fibrillation: Code(s): I48.0 - Paroxysmal atrial fibrillation Category: Medical Plan: Newer finding of paroxysmal atrial fibrillation this past year with at least 2 ER visits, most recent being 04/02/25. At that time she was put on flecainide 100 mg b.i.d. and metoprolol XL 25 mg daily. She was seen in the ER the following day with low heart rate and her flecainide dose was reduced however she did have recurrent AFib and the dose was increased again. She has been taking the 100 mg b.i.d. and metoprolol as directed and reports a 6 hour episode of PAF 2 days ago. EKG today sinus bradycardia with first-degree AV block, rate 50. She is also hypotensive, asymptomatic. Will have her reduce metoprolol to 12.5 mg daily. Continue flecainide. Increase fluid intake. Refer to electrophysiology for ablation. Chads Vasc score of 1, female. Not on anticoag ulation. Cardiology follow-up 3 months, sooner if needed. (2) Hypotension: Code(s): I95.9 - Hypotension, unspecified Category: Medical Plan: Blood pressure running low, primarily asymptomatic. She does report some fatigue. Reducing metoprolol dose and having her increase her fluid intake. Plan I discussed with the patient the management of her atrial fibrillation, including the continuation of flecainide and metoprolol, and the option for an additional flecainide dose during prolonged episodes. We also discussed the potential for an ablation procedure to manage her condition long-term, explaining the procedure and its benefits. I advised her on managing her low blood pressure by reducing metoprolol dosage and increasing dietary salt. Orders: Referrals Cardiac Electrophysiology Referral I48.0 - Paroxysmal atrial fibrillation Medications: New flecainide 100 mg PO Q12H 60 tabs 5RF Changed From metoprolol succinate ER (Toprol XL) 25 mg PO DAILY 30 tabs 0RF To metoprolol succinate ER (Toprol XL) dose reduced 12.5 mg (1/2 x 25 mg) PO DAILY 45 tabs 1RF 90 days Patient Instructions: - Continue taking flecainide 100 mg twice daily and metoprolol 12.5 mg daily. - Take an additional dose of flecainide if atrial fibrillation episodes are prolonged. - Increase dietary salt to help manage low blood pressure. - Stay hydrated and monitor symptoms. - Follow up with the referred specialist for potential ablation procedure. Patient was informed and verbally consented to the use of an ambient scribe for clinic note documentation during this visit. Visit time spent on chart review, interview, assessment, orders, documentation. Coding Level of Care Code Est Pt Level 4 (50028) Complex EM visit Add On G2211 Diagnoses Paroxysmal atrial fibrillation I48.0 Hypotension I95.9 CPT Codes EKG - CPT: 02837-[id number], Complete ([id number]) Time Spent (min) 36
[2025-04-27 09:44] VITALS: BP 86/50; PULSE 50; BMI 28.6
--- OUTSIDE RECORDS SUMMARY | 2025-04-27 11:17 | XMS_ITS | Patient Health Record ---
Author Organization [facility] Davi leon Carlos Address [address] [place] [address] Care Team Providers Care Patient Registration Rep Name Role Phone Isa Marsh Primary Care Provider Roc Lewis [phone] Allergies Allergen (clinical drug ingredient) Drug/Non Drug [...] Insured Coverage Start Date Coverage End Date [facility] [address] [place] [address] [phone] [id number] [phone] [id number] Betsy Sorensen Self - patient is the insured 7 Medical (General) History Medical History History ICD Code asthma Back pain Headaches Keloid/Thick Scar Sciatica thyroid Surgical History Surgery Date(Month/Year)
== END 2025-04-27 10:29 | disposition home or self-care (01) ==
PROVIDERS: Family Provider Nurse Practitioner Family; Visit Provider Nurse Practitioner Family
DX: I48.0 Paroxysmal atrial fibrillation (principal); I95.9 Hypotension, unspecified
CPT/HCPCS: 93010; 99214; G2211

== ENCOUNTER → 2025-04-27 09:38 | Outpatient (BNVA) | payer OTHER, SELFPAY | PROVIDERS: Visit Provider Nurse Practitioner Family | DX: I48.0 Paroxysmal atrial fibrillation (principal); I95.9 Hypotension, unspecified; R00.1 Bradycardia, unspecified; I44.0 Atrioventricular block, first degree | CPT/HCPCS: 93005 ==

== ENCOUNTER 2025-05-02 11:42 | Emergency (ER) | payer OTHER, SELFPAY ==
--- NOTE | ~2025-05-02 | XR_ITS ---
EXAMINATION: XR CHEST CLINICAL INFORMATION: chest left shoulder discomfort COMPARISON: 04/15/2025 TECHNIQUE: Frontal view of the chest was obtained. FINDINGS: No significant abnormality is noted involving the heart, lungs, mediastinum, bony thorax or soft tissues. XR/XR chest 1V IMPRESSION: Unremarkable examination. Electronically signed by: Bertrand Hamm MD 05/02/2025 03:22 PM EDT RP
[2025-05-02 11:53] VITALS: BP 98/54; PULSE 55; RESP 18; TEMP 36.6; O2SAT 99; BMI 27.6
--- NOTE | 2025-05-02 11:53 | ED.GENADULT ---
HPI - General Adult General Chief complaint: General Medical Stated complaint: sent from cardiology Time Seen by Provider: 05/02/25 12:14 Related Data Home Medications ?Medication ?Instructions ?Recorded ?Confirmed levothyroxine 125 mcg tablet 125 mcg PO DAILY 10/01/21 04/27/25 melatonin 5 mg chewable tablet 5 mg PO BEDTIME PRN Sleep 01/21/23 04/27/25 semaglutide (weight loss) 0.5 0.5 mg subcut QWEEK 12/13/24 04/27/25 mg/0.5 mL subcutaneous pen injector (Wegovy) Previous Rx's ?Medication ?Instructions ?Recorded cefuroxime axetil 250 mg tablet 250 mg PO BID #14 tabs 04/02/25 lorazepam 0.5 mg tablet (Ativan) 0.5 mg PO BID PRN anxiety #7 tabs 04/16/25 flecainide 100 mg tablet 100 mg PO Q12H #60 tabs 04/27/25 metoprolol succinate 25 mg 12.5 mg (1/2 x 25 mg) PO DAILY 90 04/27/25 tablet,extended release 24 hr days #45 tabs (Toprol XL) Allergies Allergy/AdvReac Type Severity Reaction Status Date / Time shellfish derived Allergy Anaphylaxis Verified 05/02/25 11:56 PMF Past Medical History Medical History Paroxysmal atrial fibrillation Uterine polyp Pneumonia due to COVID-19 virus COVID-19 Vitamin D deficiency Infertility Hepatic steatosis Hypothyroidism Iron deficiency anemia Surgical History Hx of biopsy Family History Family History Father Murder Mother Cardiovascular system problem Social History Social History Alcohol intake: never Patient Tobacco Use Status: Never used Tobacco service: No Current occupational status: employed 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 Physical Exam ED Vital Signs: Vital Signs - 24 hr 05/02/25 11:53 05/02/25 14:36 05/02/25 14:37 Temperature 98 F Pulse Rate 55 52 51 Respiratory Rate 18 Blood Pressure 98/54 L 92/45 L 106/52 L Pulse Oximetry 99 Oxygen Delivery Method Room Air 05/02/25 14:38 05/02/25 16:00 Temperature 97.9 F Pulse Rate 51 54 Respiratory Rate 16 Blood Pressure 105/51 L 106/55 L Pulse Oximetry 97 Oxygen Delivery Method Room Air BMI result Body Mass Index 27.6 Course Course Course Narrative: This is a Rapid Medical Examination (RME) performed by Dee Alfaro PA-C in triage. Full HPI, ROS, assessment and treatment plan per primary provider in the Main ED. Hx: 45 yo F hx afib and anemia here for eval. woke up this morning around 0200 and felt she was in afib which spontaneously resolved around 0400. took metoprolol and flecanide around 0750. now having headache, bilateral blurred vision and dizziness which has been improving. also reports posterior head/neck pain radiating down left arm which has been present since yesterday after lifting weights. PE/vitals: well appearing. ambulating with steady gait. Plan: labs, ekg - will defer imaging to primary provider. patient bring brought back to main ED bed at this time. Reevaluation(s) Reevaluation #1: This is a duplicate note. Please see Sherif Lantigua completed note regarding patient's visit on 05/02/2025. Medications Administered Discontinued Medications Generic Name Dose Route Start Last Admin Trade Name Freq PRN Reason Stop Dose Admin Sodium Chloride 1,000 mls @ 999 mls/hr 05/02/25 12:35 05/02/25 14:52 Ns IV 05/02/25 13:35 Infused .Q1H1M STA Infusion Sodium Chloride 1,000 mls @ 999 mls/hr 05/02/25 14:40 05/02/25 16:11 Ns IV 05/02/25 15:40 Infused .Q1H1M STA Infusion Medical Decision Making Lab Data 05/02/25 12:50 05/02/25 13:34 Labs: Lab Results 05/02/25 05/02/25 05/02/25 Range/Units 12:50 13:34 15:55 WBC 7.9 (4.8-10.8) X10*3/uL RBC 4.74 (4.20-5.50) X10*6/uL Hgb 12.2 (12.0-16.0) g/dl Hct 39.0 (37.0-47.0) % MCV 82.3 (80.0-98.0) fL MCH 25.7 L (27.0-33.0) pg MCHC 31.3 (31.0-35.0) g/dl RDW 17.1 H (11.0-16.0) % Plt Count 229 (160-400) X10*3/uL MPV 10.8 (9.4-12.3) fL Immature Gran % (Auto) 0.1 (0.0-0.4) % Neut % (Auto) 74.7 H (45-73) % Lymph % (Auto) 18.7 L (20-40) % [place]hing % (Auto) 5.6 (2-11) % Eos % (Auto) 0.5 (0-4) % Baso % (Auto) 0.4 (0-2) % Lymph # (Auto) 1.5 (1.2-4.9) X10*3/uL Pershing # (Auto) 0.4 (0.1-1.2) X10*3/uL Eos # (Auto) 0.0 (0.0-0.4) X10*3/uL Baso # (Auto) 0.0 (0.0-0.2) X10*3/uL Abs Immat Gran (auto) 0.01 (0.00-0.03) X10*3/uL Absolute Neuts (auto) 5.9 (2.0-8.3) x10*3/uL Absolute Nucleated RBC 0.000 (0.0-0.012) X10*3/uL Nucleated RBC % (auto) 0.0 (0.0-0.2) /100WBC PT 12.0 (10.9-12.4) SEC INR 1.0 (0.9-1.1) APTT 28.3 (26.7-34.1) SEC Sodium 141 (135-145) mmol/L Potassium 3.7 (3.3-5.1) mmol/L Chloride 109 H (96-108) mmol/L Carbon Dioxide 27 (22-29) mmol/L Anion Gap 9 L (12-20) BUN 13 (9-16) mg/dL Creatinine 0.61 (0.5-1.4) mg/dL Estim Creat Clear Calc 121.1 Estimated GFR > 60 Random Glucose 95 (60-115) mg/dL Calcium 8.6 (8.4-10.2) mg/dL Magnesium 2.0 (1.6-2.6) mg/dL Total Bilirubin 0.4 (0.0-1.0) mg/dL AST 35 H (5-31) U/L ALT 63 H (0-31) U/L Alkaline Phosphatase 132 H (39-117) U/L Troponin I High Sens < 2.7 < 2.7 (<3.5-17.0) ng/L NT-Pro-B Natriuret Pep 216.0 (<300) pg/mL Total Protein 7.0 (6.5-8.0) g/dL Albumin 3.7 (3.5-5.0) g/dL TSH 1.26 (0.32-4.0) uIU/mL Beta HCG, Quant < 2 mIU/mL Discharge Plan Discharge Clinical Impression: Palpitations Patient Disposition: Home, Self-Care Instructions: Heart Palpitations (ED), Heart Palpitations (DC) Additional Instructions: Recommend follow-up with primary care provide and cardiology. Return to the ED immediately for any chest pain, shortness of breath, coughing up blood, slurred speech, facial droop, paralysis of extremities, loss of vision, nausea, vomiting, fever, chills, any other concerning symptoms. Prescriptions: No Action melatonin 5 mg Tablet,Chewable 5 mg PO BEDTIME PRN (Reason: Sleep) levothyroxine 125 mcg tablet 125 mcg PO DAILY cefuroxime axetil 250 mg tablet 250 mg PO BID Qty: 14 0RF lorazepam [Ativan] 0.5 mg tablet 0.5 mg PO BID PRN (Reason: anxiety) Qty: 7 0RF Wegovy 0.5 mg/0.5 mL pen injector 0.5 mg subcut QWEEK Rx Instructions: administer weeks 5 through 8 of therapy flecainide 100 mg tablet 100 mg PO Q12H Qty: 60 5RF metoprolol succinate [Toprol XL] 25 mg tablet extended release 24 hr 12.5 mg PO DAILY 90 Days Qty: 45 1RF Rx Instructions: dose reduced [place]errals: [facility] [place] [facility] [place]Provider Group, Cardiology] - 2 days Referral Note: Palpitations Clinical Impression: Palpitations Isa Marsh NP [Primary Care Provider, Internal Medicine] - 2 days Referral Note: Heart palpitations. Clinical Impression: Palpitations Stand Alone Forms: Work/School Release Discharge Date/Time: 05/02/25 17:56 Print Language: Romanian
--- NOTE | 2025-05-02 11:56 | ECG_ITS ---
Test Reason : DIZZINESS Blood Pressure : */* mmHG Vent. Rate : 54 BPM Atrial Rate : 54 BPM P-R Int : 214 ms QRS Dur : 90 ms QT Int : 478 ms P-R-T Axes : 16 -19 13 degrees QTcB Int : 453 ms Sinus bradycardia with 1st degree A-V block Low voltage QRS Nonspecific T wave abnormality Abnormal ECG When compared with ECG of 16-Apr-2025 02:02, Nonspecific T wave abnormality now evident in Anterior leads Referred By: Edita Alfaro Electronically Signed By: Bradford Fregoso
[2025-05-02 12:57] LABS: MANUAL DIFF FLAG NO
[2025-05-02 13:04] LABS: Hematocrit 39.0 % (37.0-47.0); Hemoglobin 12.2 g/dl (12.0-16.0); Imm Gran Abs Auto 0.01 X10*3/uL (0.00-0.03); Imm Gran Pct Auto 0.1 % (0.0-0.4); Lymphocytes Absolute Auto 1.5 X10*3/uL (1.2-4.9); Mean Corpuscular HGB Conc 31.3 g/dl (31.0-35.0); Mean Corpuscular Hemoglobin 25.7 pg (27.0-33.0); Mean Corpuscular Volume 82.3 fL (80.0-98.0); NRBC Abs Auto 0.000 X10*3/uL (0.0-0.012); NRBC Pct Auto 0.0 /100WBC (0.0-0.2); Platelet Count 229 X10*3/uL (160-400); Red Blood Count 4.74 X10*6/uL (4.20-5.50); White Blood Count 7.9 X10*3/uL (4.8-10.8)
[2025-05-02 13:10] LABS: INTERNATIONAL NORM RATIO 1.0 (0.9-1.1); Prothrombin Time 12.0 SEC (10.9-12.4)
--- NOTE | 2025-05-02 13:11 | ED.GENADULT ---
HPI - General Adult General Chief complaint: General Medical Stated complaint: sent from cardiology Time Seen by Provider: 05/02/25 12:14 Source: patient Mode of arrival: ambulatory Limitations: no limitations History of Present Illness ED Provider: Isidro Lorenzo [facility] narrative: 45-year-old female history of proximal AFib presents to ED for waking up at 02:00am with heart palpitations calm down around 04:00 and then she had some heart palpitations blurry vision with dizziness and , chest, left neck pain, and arm/shoulder pain that resolved at 07:00. Patient had similar symptoms last week and yesterday. Since then patient has been asymptomatic. Patient has called her debt collection specialist's office who sent her to the ED for evaluation. Related Data Home Medications ?Medication ?Instructions ?Recorded ?Confirmed levothyroxine 125 mcg tablet 125 mcg PO DAILY 10/01/21 04/27/25 melatonin 5 mg chewable tablet 5 mg PO BEDTIME PRN Sleep 01/21/23 04/27/25 semaglutide (weight loss) 0.5 0.5 mg subcut QWEEK 12/13/24 04/27/25 mg/0.5 mL subcutaneous pen injector (Wegovy) Previous Rx's ?Medication ?Instructions ?Recorded cefuroxime axetil 250 mg tablet 250 mg PO BID #14 tabs 04/02/25 lorazepam 0.5 mg tablet (Ativan) 0.5 mg PO BID PRN anxiety #7 tabs 04/16/25 flecainide 100 mg tablet 100 mg PO Q12H #60 tabs 04/27/25 metoprolol succinate 25 mg 12.5 mg (1/2 x 25 mg) PO DAILY 90 04/27/25 tablet,extended release 24 hr days #45 tabs (Toprol XL) Allergies Allergy/AdvReac Type Severity Reaction Status Date / Time shellfish derived Allergy Anaphylaxis Verified 05/02/25 11:56 Review of Systems Review of Systems: Resolved palpitations, dizziness and blurry vision. Presently asymptomatic. left arm neck pain. 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 Physical Exam ED Vital Signs: Vital Signs - 24 hr 05/02/25 11:53 05/02/25 14:36 05/02/25 14:37 Temperature 98 F Pulse Rate 55 52 51 Respiratory Rate 18 Blood Pressure 98/54 L 92/45 L 106/52 L Pulse Oximetry 99 Oxygen Delivery Method Room Air 05/02/25 14:38 05/02/25 16:00 Temperature 97.9 F Pulse Rate 51 54 Respiratory Rate 16 Blood Pressure 105/51 L 106/55 L Pulse Oximetry 97 Oxygen Delivery Method Room Air BMI result Body Mass Index 27.6 Const General: cooperative, healthy appearing, comfortable, no acute distress, well developed, alert, awake and Physically active Orientation/consciousness: patient oriented x3 HENMT Head: Yes normal to inspection, Yes No palpable skull fracture present, Yes normocephalic and Yes atraumatic Eyes General: appearance normal, both eyes and all related structures Neck Neck: Yes normal visual inspection, Yes full ROM, Yes no lymphadenopathy, Yes no meningeal signs, Yes trachea midline, Yes supple, No anterior neck swelling and No tender Chest Chest palpation & inspection: normal inspection of the chest and normal palpation of entire chest wall Resp Effort & Inspection: normal respiratory effort and able to speak in complete sentences Auscultation: clear to auscultation bilaterally Cardio Jugular venous distension: no JVD Heart sounds: S1 normal heart sound present and S2 normal heart sound present GI Inspection: Yes normal to inspection Palpation (GI): Soft to palpation, not firm, nontender, no guarding and not rigid General: Yes no CVA tenderness Back/Spine/Pelvis Back: no CVA tenderness and No back tenderness Skin General skin exam: no rashes or lesions noted, elasticity normal and turgor normal Neuro General: patient oriented x3, gait normal, tone normal, moves all extremities, Normal light touch and pain sensation, no meningeal signs, no focal motor deficits, CN's II-XI intact bilaterally and normal sensation to monofilament Extrem General: Yes normal to inspection, Yes full ROM and Yes capillary refill normal Psych Appearance: grossly normal, well kempt and not disheveled NIH Stroke Scale Internal: Initial- Upon Arrival Level of Consciousness: Alert Level of Consciousness Questions: Answers both questions correctly Level of Consciousness Commands: Performs both tasks correctly Best Gaze: Normal Visual: No visual loss Facial Palsy: Normal Motor Arm (Right): No drift Motor Arm (Left): No drift Motor Leg (Right): No drift Motor Leg (Left): No drift Limb Ataxia: Absent Sensory: Normal Best Language: No aphasia Dysarthia: Normal Extinction and Inattention: No abnormality Score: 0 Medications Administered Discontinued Medications Generic Name Dose Route Start Last Admin Trade Name Freq PRN Reason Stop Dose Admin Sodium Chloride 1,000 mls @ 999 mls/hr 05/02/25 12:35 05/02/25 14:52 Ns IV 05/02/25 13:35 Infused .Q1H1M STA Infusion Sodium Chloride 1,000 mls @ 999 mls/hr 05/02/25 14:40 05/02/25 16:11 Ns IV 05/02/25 15:40 Infused .Q1H1M STA Infusion Medical Decision Making Medical Decision Making [facility] Narrative: 45-year-old female with past medical history of AFib presents to ED for woke up this morning with the heart palpitations at 02:00 that finally calmed down on for. Patient did had some blurred vision bilaterally with chest pain, shoulder pain, neck pain, palpitations that resolved around 07:00. Patient states heart rate monitor from this morning was between 48 to 134 on smart watch. Patient neuro exam is intact. No signs of large vein occlusion. EKG shows sinus bradycardia. Patient is placed on monitor. Labs ordered 2:59pm: Patient 1st troponin negative. Thyroid lab results normal. BNP negative. Usually patient states referred shoulder chest pain was sent for chest x-ray. Patient's blood pressure is low. Vital signs were trending and since that patient has been having low blood pressure for a while even previous visits. Patient states this is due to metoprolol and her debt collection specialist is aware. Her dose was decreased from 100-12.5. Presently blood pressure 105/51. .Case was discusssed with Dr. Dyer who states no need for Head CTA or Head CT. Patient CHADVASC score is 1 and unlikely to have a stroke. patient symptoms dont indicate stroke. 5:26pm: Patient's 2nd troponin negative. Orthostatics negative. Patient is sitting on having a transecho although not indicated. Case was discussed with Dr. Fregoso covering Cardiology. It was informed of patient's EKG, vital signs, physical exam, symptoms and lab results. He is agreeable patient does not need any emergent stat echocardiogram and came and patient can be discharged as outpatient follow-up for echocardiogram. He states patient is in sinus rhythm and not in AVF or RVR. He was informed of patient's blood pressure while being on metoprolol in his aware cardiology already decreased her dosage of metoprolol due to patient having soft/low blood pressure due to her being on metoprolol. He states no change to metoprolol or adding any new rate control medication. He states patient can continue taking her medication. Patient is alert oriented x3 walking around without any symptoms. Patient to be discharged. Not suspecting PE, TX, stroke, posterior cerebellar infarct, retinal venous arterial occlusion, or any other life-threatening etiology. Patient was seen here recently for similar symptoms. Differential Diagnosis Differential Diagnoses: The differential diagnosis associated with the presentation includes (AFib, RVR,) Admission/Observation Consideration of admission/observation: Escalation of care including admission/observation considered Consult Healthcare Provider Management of the patient was discussed with: Ssis Developer (Dr. Fregoso Cardiology) Lab Data MDM Lab Attestation statement: I reviewed the patient's lab results. 05/02/25 12:50 05/02/25 13:34 Labs: Lab Results 05/02/25 05/02/25 05/02/25 Range/Units 12:50 13:34 15:55 WBC 7.9 (4.8-10.8) X10*3/uL RBC 4.74 (4.20-5.50) X10*6/uL Hgb 12.2 (12.0-16.0) g/dl Hct 39.0 (37.0-47.0) % MCV 82.3 (80.0-98.0) fL MCH 25.7 L (27.0-33.0) pg MCHC 31.3 (31.0-35.0) g/dl RDW 17.1 H (11.0-16.0) % Plt Count 229 (160-400) X10*3/uL MPV 10.8 (9.4-12.3) fL Immature Gran % (Auto) 0.1 (0.0-0.4) % Neut % (Auto) 74.7 H (45-73) % Lymph % (Auto) 18.7 L (20-40) % [place] % (Auto) 5.6 (2-11) % Eos % (Auto) 0.5 (0-4) % Baso % (Auto) 0.4 (0-2) % Lymph # (Auto) 1.5 (1.2-4.9) X10*3/uL [place] # (Auto) 0.4 (0.1-1.2) X10*3/uL Eos # (Auto) 0.0 (0.0-0.4) X10*3/uL Baso # (Auto) 0.0 (0.0-0.2) X10*3/uL Abs Immat Gran (auto) 0.01 (0.00-0.03) X10*3/uL Absolute Neuts (auto) 5.9 (2.0-8.3) x10*3/uL Absolute Nucleated RBC 0.000 (0.0-0.012) X10*3/uL Nucleated RBC % (auto) 0.0 (0.0-0.2) /100WBC PT 12.0 (10.9-12.4) SEC INR 1.0 (0.9-1.1) APTT 28.3 (26.7-34.1) SEC Sodium 141 (135-145) mmol/L Potassium 3.7 (3.3-5.1) mmol/L Chloride 109 H (96-108) mmol/L Carbon Dioxide 27 (22-29) mmol/L Anion Gap 9 L (12-20) BUN 13 (9-16) mg/dL Creatinine 0.61 (0.5-1.4) mg/dL Estim Creat Clear Calc 121.1 Estimated GFR > 60 Random Glucose 95 (60-115) mg/dL Calcium 8.6 (8.4-10.2) mg/dL Magnesium 2.0 (1.6-2.6) mg/dL Total Bilirubin 0.4 (0.0-1.0) mg/dL AST 35 H (5-31) U/L ALT 63 H (0-31) U/L Alkaline Phosphatase 132 H (39-117) U/L Troponin I High Sens < 2.7 < 2.7 (<3.5-17.0) ng/L NT-Pro-B Natriuret Pep 216.0 (<300) pg/mL Total Protein 7.0 (6.5-8.0) g/dL Albumin 3.7 (3.5-5.0) g/dL TSH 1.26 (0.32-4.0) uIU/mL Beta HCG, Quant < 2 mIU/mL Independent Interpretation I performed an independent interpretation of an: EKG (Sinus bradycardia first-degree block) and Plain X-Ray Independent Historian Clinical information obtained from an independent historian. History obtained from or confirmed by: Other (Patient) Discharge Plan Discharge Clinical Impression: Palpitations Patient Disposition: Home, Self-Care Instructions: Heart Palpitations (ED), Heart Palpitations (DC) Additional Instructions: Recommend follow-up with primary care provide and cardiology. Return to the ED immediately for any chest pain, shortness of breath, coughing up blood, slurred speech, facial droop, paralysis of extremities, loss of vision, nausea, vomiting, fever, chills, any other concerning symptoms. Prescriptions: No Action melatonin 5 mg Tablet,Chewable 5 mg PO BEDTIME PRN (Reason: Sleep) levothyroxine 125 mcg tablet 125 mcg PO DAILY cefuroxime axetil 250 mg tablet 250 mg PO BID Qty: 14 0RF lorazepam [Ativan] 0.5 mg tablet 0.5 mg PO BID PRN (Reason: anxiety) Qty: 7 0RF Wegovy 0.5 mg/0.5 mL pen injector 0.5 mg subcut QWEEK Rx Instructions: administer weeks 5 through 8 of therapy flecainide 100 mg tablet 100 mg PO Q12H Qty: 60 5RF metoprolol succinate [Toprol XL] 25 mg tablet extended release 24 hr 12.5 mg PO DAILY 90 Days Qty: 45 1RF Rx Instructions: dose reduced Referrals: [facility] [Provider Group, Cardiology] - 2 days Referral Note: Palpitations Clinical Impression: Palpitations Isa Marsh NP [Primary Care Provider, Internal Medicine] - 2 days Referral Note: Heart palpitations. Clinical Impression: Palpitations Stand Alone Forms: Work/School Release Discharge Date/Time: 05/02/25 17:56 Print Language: Sami
[2025-05-02 13:12] LABS: Partial Thromboplastin Time 28.3 SEC (26.7-34.1)
[2025-05-02 14:00] LABS: Alanine Aminotransferase 63 U/L (0-31); Albumin Level 3.7 g/dL (3.5-5.0); Alkaline Phosphatase 132 U/L (39-117); Anion Gap 9 (12-20); Aspartate Amino Transferase 35 U/L (5-31); Blood Urea Nitrogen 13 mg/dL (9-16); Calcium 8.6 mg/dL (8.4-10.2); Carbon Dioxide 27 mmol/L (22-29); Chloride 109 mmol/L (96-108); Creatinine Clr Calc Pharmacy 121.1; Estimated Glomerular Filt Rate > 60; Magnesium 2.0 mg/dL (1.6-2.6); Potassium 3.7 mmol/L (3.3-5.1); Sodium 141 mmol/L (135-145); Total Protein 7.0 g/dL (6.5-8.0)
[2025-05-02 14:04] LABS: NT Pro B Type Natriuretic Pept 216.0 pg/mL (<300)
[2025-05-02 14:09] LABS: Troponin-I High Sensitivity < 2.7 ng/L (<3.5-17.0)
[2025-05-02 14:36] VITALS: BP 92/45; PULSE 52
[2025-05-02 14:37] VITALS: BP 106/52; PULSE 51
[2025-05-02 14:38] VITALS: BP 105/51; PULSE 51
--- OUTSIDE RECORDS SUMMARY | 2025-05-02 15:18 | XMS_ITS | Patient Health Record ---
Author Organization [facility] Davi leon Carlos Address [address] [place] [address] Care Team Providers Care Equipment Service Engineer Name Role Phone Isa Marsh Primary Care Provider Roc Lewis [phone] Allergies Allergen (clinical drug ingredient) Drug/Non Drug [...] Insured Coverage Start Date Coverage End Date [facility] [address] [place] [address] [phone] [id number] Betsy Sorensen Self - patient is the insured 7 Medical (General) History Medical History History ICD Code asthma Back pain Headaches Keloid/Thick Scar Sciatica thyroid Surgical History Surgery Date(Month/Year)
[2025-05-02 16:00] VITALS: BP 106/55; PULSE 54; RESP 16; TEMP 36.6; O2SAT 97
[2025-05-02 16:26] LABS: Troponin-I High Sensitivity < 2.7 ng/L (<3.5-17.0)
== END 2025-05-02 17:56 | disposition home or self-care (01) ==
PROVIDERS: Physician Assistant; Physician Assistant Medical; Emergency Provider Emergency Medicine; PCP Nurse Practitioner Family
DX: R00.2 Palpitations (principal); H53.8 Other visual disturbances; M54.2 Cervicalgia; I48.91 Unspecified atrial fibrillation; M79.602 Pain in left arm; R11.2 Nausea with vomiting, unspecified; R06.02 Shortness of breath; Z79.899 Other long term (current) drug therapy
CPT/HCPCS: 36415; 71045; 80053; 83735; 83880; 84443; 84484; 84702; 85025; 85610; 85730; 93005; 96360; 96361; 99284

== ENCOUNTER → 2025-05-02 11:56 | Outpatient (BNV) | payer OTHER, SELFPAY | PROVIDERS: Emergency Provider Emergency Medicine; PCP Nurse Practitioner Family; Visit Provider Internal Medicine Cardiovascular Disease | DX: I44.0 Atrioventricular block, first degree (principal); R00.1 Bradycardia, unspecified | CPT/HCPCS: 93010 ==

== ENCOUNTER → 2025-05-02 14:56 | Outpatient (BNV) | payer OTHER, SELFPAY | PROVIDERS: Emergency Provider Emergency Medicine; PCP Nurse Practitioner Family; Visit Provider Radiology Diagnostic Radiology | DX: R07.89 Other chest pain (principal) | CPT/HCPCS: 71045 ==

== ENCOUNTER 2025-06-16 08:40 | Outpatient (RCR) | payer OTHER, SELFPAY ==
[2025-04-20 08:17] VITALS: BP 98/50; PULSE 53; RESP 16; TEMP 36.3; O2SAT 100
[2025-04-27 08:16] VITALS: BP 94/48; PULSE 51; RESP 16; TEMP 36.5; O2SAT 100
[2025-05-11 08:14] VITALS: BP 98/31; PULSE 52; RESP 18; TEMP 36.6; O2SAT 99
[2025-05-18 08:21] VITALS: BP 114/67; PULSE 58; RESP 16; TEMP 36.6; O2SAT 100
[2025-05-25 08:25] VITALS: BP 98/41; PULSE 57; RESP 16; TEMP 36.7; O2SAT 100
[2025-06-16 10:37] VITALS: BP 104/37; PULSE 58; RESP 16; TEMP 36.7; O2SAT 100
== END 2025-06-16 11:01 | disposition home or self-care (01) ==
LOC: HO.INF 08:40
PROVIDERS: Visit Provider Internal Medicine
DX: D64.9 Anemia, unspecified (principal)
CPT/HCPCS: 96365; 96374; J1756